=== PATIENT | female | born 1960 | race Caucasian/White ===

== ENCOUNTER → 2019-07-18 | Outpatient (CLI) | payer MEDICARE, MEDICAID, SELFPAY | PROVIDERS: Family Provider Nurse Practitioner Family; Visit Provider Internal Medicine Medical Oncology | DX: Z51.11 Encounter for antineoplastic chemotherapy (principal); C50.412 Malignant neoplasm of upper-outer quadrant of left female breast; G62.0 Drug-induced polyneuropathy; T45.1X5A Adverse effect of antineoplastic and immunosuppressive drugs, initial encounter; Z17.1 Estrogen receptor negative status [ER-]; Z79.899 Other long term (current) drug therapy; I10 Essential (primary) hypertension; E03.9 Hypothyroidism, unspecified; K21.9 Gastro-esophageal reflux disease without esophagitis; M79.7 Fibromyalgia; J44.9 Chronic obstructive pulmonary disease, unspecified; G47.33 Obstructive sleep apnea (adult) (pediatric); F41.8 Other specified anxiety disorders; M48.9 Spondylopathy, unspecified | CPT/HCPCS: 80053; 85025; 96367; 96372; 96413; 96415; 99214; J1100; J1453; J1815; J2469; J2505; J3490; J7030; J7050; J9267 ==

== ENCOUNTER 2019-07-27 10:28 | Outpatient (RCR) | payer MEDICARE, MEDICAID, SELFPAY ==
--- NOTE | 2019-08-01 10:43 | ONC FU_ITS ---
Dr. Cameron Patient Follow-Up Note Patient: Ana Chavez Unit #: [id number]: 1960 Dicatated By: Bright Cameron M.D.Date of Visit:Jul 27, 2019 Onc Med Follow-up/Prog Note Chief Complaint: Breast cancer. History of Present Illness: This is a 59 year-old woman with grade 2 invasive ductal carcinoma of the left breast, by clinical evaluation stage IIB (T2, N0, M0), ER/AK negative and HER-2/luz negative. She had presented with abnormal screening mammogram. The study from 12/09/2018 showed a new mass in the left upper outer quadrant measuring 2 x 1.5 cm. Additional evaluation was recommended. She returned for additional mammographic views and ultrasound on 03/01/2019. The mammogram showed an irregular spiculated mass in the left upper outer quadrant measuring 2.5 x 1.9 cm. It appeared to have increased on the November study. Ultrasound showed a solid hypoechoic mass measuring 2.6 x 1.8 x 2.2 cm. The findings were BI-RADS 5, highly suggestive of malignancy. Ultrasound directed biopsy of the left breast mass on 03/11/2019 showed grade 2 invasive ductal carcinoma. The best prognostic profile showed unfavorable KI 67 at 39%. The tumor was ER/AK negative, both < 1%. It was negative for overexpression of HER-2/luz, 1+ by IHC with amplification ratio by FISH of 1.0 with 1.9 HER-2 copies/cell. She was then seen at the [facility] in [place] for further management of the breast cancer. She was recommended to undergo neoadjuvant chemotherapy with dose dense Adriamycin/cyclophosphamide for 4 cycles followed by paclitaxel every 2 weeks for 4 cycles. She completed the 4th cycle of AC on 05/26/2019. She was seen here initially on 06/13/2019 because she desired to complete the remainder of her chemotherapy closer to home. Subsequent to that visit, I had arranged for placement of a PICC line, as she had very poor peripheral venous access and she did not want to have a Port-A-Cath placed. She had difficulty with the procedure, though, and she opted to stop it before it was completed. Her other medical illnesses include hypertension, GERD, COPD, obstructive sleep apnea, hypothyroidism, degenerative arthritis, fibromyalgia, and anxiety/depression. She has had only minimal tobacco or alcohol use in the past. INTERIM HISTORY: She eventually did get an IV placed into the right arm, and she began cycle 1 of paclitaxel on 06/27/2019. She tolerated it without acute toxicity, but her cycle 2 was delayed due to a respiratory infection, for which she was given antibiotic therapy. She was unable continue with cycle 2 of paclitaxel on 07/18/2019. It was administered via peripheral IV in the right arm at the full dosage. She had then presented to the emergency room at [facility] in [place] yesterday with pain and swelling in her right arm. I was told by the ER physician that her venous Doppler study showed evidence of thrombophlebitis, but there was no actual deep vein thrombosis identified. The actual report is not yet available. As a precaution, I did recommend that she start anticoagulation, and she was given a prescription to start apixaban 10 mg twice a day. She is seen for a follow-up visit. She says she was nauseated for about 6 days after her last chemotherapy treatment. Her energy is the same. She has limited activity. Appetite has not been good. She has not had fever or night sweats. She complains that her mouth sibley. Her breathing is the same. She has shortness of breath. She does not complain of cough, and she has not been having chest pain. Bowel and bladder function have been okay. She has pain in the lower back. She also has pain in both legs and she is having numbness in her fingertips and toes. It is gradually getting worse. Medications: Ativan 0.5 - 1 Tablet (of 1 mg) Oral t.i.d. PRN, Concerta 1 Tablet (of 54 mg) Tablet, controlled release Oral daily PRN, Cyclobenzaprine HCl 1 Tablet (of 10 mg) Oral t.i.d. PRN, FLUoxetine HCl 1 Tablet (of 20 mg) Oral daily, Lisinopril 1 Tablet (of 40 mg) Oral daily, Lyrica 1 Capsule (of 75 mg) Oral b.i.d., Metoprolol Succinate ER 1 Tablet (of 25 mg) Tablet SR 24 HR Oral daily, Morphine Sulfate ER 1 Tablet (of 60 mg) Tablet, controlled release Oral q 12 hours, Omeprazole 1 Capsule (of 40 mg) Capsule Delayed Release Oral b.i.d. PRN Allergies: Amoxicillin Review of Systems: Constitutional - Her energy is the same. She has fatigue, but she is able to do light housework. Her appetite is not good, but she is eating. She has not had fever. She does have some sweating at night. ECOG score is 1, ENMT - She has sinus drainage. She complains that her mouth siblye. No sore throat or difficulty swallowing, Hematologic/Lymphatic - No abnormal bruising or bleeding, Respiratory - She has some shortness of breath. Her breathing is the same. No cough. No pleuritic pain or hemoptysis, Cardiovascular - No angina pain. No palpitations, Gastrointestinal - She had some nausea on Thursday. She has a little bit of heartburn. No diarrhea or constipation. No blood in the stool or black stools, Genitourinary (F) - No dysuria or hematuria. No urinary frequency. No urgency or incontinence, Musculoskeletal - She has pain in her lower back, Neurologic - No headache or dizziness. She has numbness and tingling in her feet and fingertips. It has gotten worse gradually, Psychiatric - No anxiety or depression. No insomnia. Vital Signs: Performed on Jul 27, 2019 10:50 Height - 67.00 in Weight - 208.0 lbs (LOW) BSA - 2.06 sq.m BMI - 32.58 (HIGH) Temperature - 98.3 F (LOW) Pulse - 105 /min (HIGH) Respiration - 17 /min BP - 140/98 mm(hg) O2 Sat - 98 % Pain - 6 Physical Examination: Constitutional - She looks pretty good generally, Eyes - Sclerae nonicteric. Conjunctivae clear, ENMT - There are no lesions noted in the oral cavity, Hematologic/Lymphatic - No cervical, clavicular, or axillary adenopathy, Respiratory - Lungs are clear with good air movement bilaterally, Cardiovascular - Heart rhythm is regular. There is no murmur, gallop, or rub noted, Abdomen - Soft. Liver and spleen are not enlarged. There is no abdominal mass or ascites noted and there is no inguinal adenopathy, Extremities - No lower extremity edema. There is localized swelling and erythema involving the ventral aspect of the right forearm just below the elbow, Neurologic - No focal neurologic deficits noted. Lab/Imaging: Test performed on Jul 18, 2019 09:55 Sodium 138 mmol/L Potassium 4.3 mmol/L Chloride 100 mmol/L CO2 22 mmol/L Anion Gap 20.3 BUN 8 mg/dL Creatinine 0.6 mg/dL Cr Clearance (Est) 155.7900 mL/min eGFR 102.0 mL/min Glucose 245 mg/dl Calcium 9.9 mg/dL Protein, Total 6.4 g/dL Albumin 4.1 g/dL Globulin 2.3 gm/dL Bilirubin, Total 0.3 mg/dL ALT (SGPT) 13 U/L AST (SGOT) 18 U/L Alkaline Phosphatase 114 U/L WBC 4.5 10 3/uL RBC 3.60 10 6/uL HGB 10.6 g/dL HCT 34.3 % MCV 95.3 fl MCH 29.4 pg MCHC 30.9 g/dl RDW 16.0 % Platelet Count 163 10 3/cmm MPV 10.2 fl Neutrophils 3.9 10 3/uL Lymphocytes 0.6 10 3/uL Monocytes 0.0 10 3/uL Eosinophils 0.0 10 3/uL Basophils 0.0 10 3/uL Neutrophil % 86.3 % Lymphocyte % 12.4 % Monocyte % 0.4 % Eosinophil % 0.0 % Basophils % 0.2 % Impression: also I'll okay thanks a lot1. Patient with grade 2 invasive ductal carcinoma of the left breast, triple negative. By clinical evaluation her disease was stage IIB (T2, N0, M0). 2. She has been undergoing neoadjuvant chemotherapy with dose dense AC/T. Her other medical illnesses include: 3. Hypertension. 4. Hypothyroidism. 5. GERD. 6. Degenerative arthritis/degenerative disease of the spine. 7. Fibromyalgia. 8. COPD. 9. Obstructive sleep apnea. 10. Anxiety/depression. She began cycle 1 of Adriamycin/cyclophosphamide on 04/06/2019. She tolerated it with acceptable toxicity and she continued with cycle 2 on 04/21/2019, with cycle 3 on 05/12/2019, and with cycle 4 on 05/26/2019. Cycle 4 was complicated by mucositis, severe enough to require hospitalization. She also was anemic and required PRBC transfusion. She was seen here initially on 06/13/2019 as she desired to complete the remainder of her chemotherapy closer to home. Her first cycle of paclitaxel, though, as she required some type of venous access device, and she had difficulty with the initial attempt to place a PICC line. She eventually did complete cycle 1 of paclitaxel on 06/27/2019. She had no acute toxicity with that treatment, but she subsequently has developed fairly significant neuropathy symptoms. She required a delay with cycle 2 due to a respiratory infection, but it was able to be administered through a peripheral IV in the right arm on 07/18/2019. She then presented to the emergency room at [facility] in [place] yesterday with pain and swelling in her right arm. There is localized swelling and erythema in the ventral aspect of the right forearm just below the right elbow. Her venous Doppler study reportedly showed findings consistent with thrombophlebitis. The cause is uncertain, as it does not appear to correlate with the site of administration of her second cycle of paclitaxel, which was in the posterior aspect of the forearm. Plan: As a precaution, I will have her continue anticoagulation with apixaban. I'm also going to start empiric antibiotic coverage with Bactrim. At this point she is undecided if she wants to attempt any further chemotherapy. She would require 2 more cycles of paclitaxel to complete her treatment, but her neuropathy symptoms are worsening, and given the problems with her right arm, and I will insist that she have a central line placed for any further infusions of paclitaxel. Signed By: Bright Cameron M.D. <<Signature on File>>
== END 2019-08-19 23:59 | disposition home or self-care (01) ==
LOC: ONCMED 10:28
PROVIDERS: Family Provider Nurse Practitioner Family; PCP Nurse Practitioner Family; Visit Provider Internal Medicine Medical Oncology
DX: C50.412 Malignant neoplasm of upper-outer quadrant of left female breast (principal); Z17.1 Estrogen receptor negative status [ER-]; I10 Essential (primary) hypertension; K21.9 Gastro-esophageal reflux disease without esophagitis; J44.9 Chronic obstructive pulmonary disease, unspecified; G47.33 Obstructive sleep apnea (adult) (pediatric); E03.9 Hypothyroidism, unspecified; M19.90 Unspecified osteoarthritis, unspecified site; M79.7 Fibromyalgia; F41.8 Other specified anxiety disorders; I80.8 Phlebitis and thrombophlebitis of other sites; G62.0 Drug-induced polyneuropathy; T45.1X5A Adverse effect of antineoplastic and immunosuppressive drugs, initial encounter; Z79.899 Other long term (current) drug therapy
CPT/HCPCS: 99214

== ENCOUNTER 2019-09-05 06:00 | Outpatient (RCR) | payer MEDICARE, MEDICAID, SELFPAY ==
--- NOTE | 2019-09-05 20:35 | ONC FU_ITS ---
Dr. Cameron Patient Follow-Up Note Patient: Ana Chavez Unit #: [id number]: 1960 Dicatated By: Bright Cameron M.D.Date of Visit:Sep 05, 2019 Onc Med Follow-up/Prog Note Chief Complaint: Breast cancer. History of Present Illness: This is a 59 year-old woman with grade 2 invasive ductal carcinoma of the left breast, by clinical evaluation stage IIB (T2, N0, M0), ER/CO negative and HER-2/luz negative. She had presented with abnormal screening mammogram. The study from 12/09/2018 showed a new mass in the left upper outer quadrant measuring 2 x 1.5 cm. Additional evaluation was recommended. She returned for additional mammographic views and ultrasound on 03/01/2019. The mammogram showed an irregular spiculated mass in the left upper outer quadrant measuring 2.5 x 1.9 cm. It appeared to have increased on the November study. Ultrasound showed a solid hypoechoic mass measuring 2.6 x 1.8 x 2.2 cm. The findings were BI-RADS 5, highly suggestive of malignancy. Ultrasound directed biopsy of the left breast mass on 03/11/2019 showed grade 2 invasive ductal carcinoma. The best prognostic profile showed unfavorable KI 67 at 39%. The tumor was ER/CO negative, both < 1%. It was negative for overexpression of HER-2/luz, 1+ by IHC with amplification ratio by FISH of 1.0 with 1.9 HER-2 copies/cell. She was then seen at the [facility] in [place] for further management of the breast cancer. She was recommended to undergo neoadjuvant chemotherapy with dose dense Adriamycin/cyclophosphamide for 4 cycles followed by paclitaxel every 2 weeks for 4 cycles. She completed the 4th cycle of AC on 05/26/2019. She was seen here initially on 06/13/2019 because she desired to complete the remainder of her chemotherapy closer to home. Subsequent to that visit, I had arranged for placement of a PICC line, as she had very poor peripheral venous access and she did not want to have a Port-A-Cath placed. She had difficulty with the procedure, though, and she opted to stop it before it was completed. Her other medical illnesses include hypertension, GERD, COPD, obstructive sleep apnea, hypothyroidism, degenerative arthritis, fibromyalgia, and anxiety/depression. She has had only minimal tobacco or alcohol use in the past. INTERIM HISTORY: She eventually did get an IV placed into the right arm, and she began cycle 1 of paclitaxel on 06/27/2019. She tolerated it without acute toxicity, but her cycle 2 was delayed due to a respiratory infection, for which she was given antibiotic therapy. She was unable continue with cycle 2 of paclitaxel on 07/18/2019. It was administered via peripheral IV in the right arm at the full dosage. She had then presented to the emergency room at [facility] in [place] with pain and swelling in her right arm. Her venous Doppler study showed evidence of thrombophlebitis, but there was no actual deep vein thrombosis identified. As a precaution, I did recommend that she start anticoagulation with apixaban. I had seen her for a follow-up visit on 07/27/2019. I had recommended that she undergo placement of a venous access catheter prior to continuing her chemotherapy. She had recently returned to the [facility]. She apparently had repeat mammogram and ultrasound done at that time, though I do not have those reports available. She has decided to further treatment locally. She says her energy comes and goes. Her appetite is not good. Her weight is down a few pounds. She has not had fever or hot flashes. She has sweating with activity. She does not complain of shortness of breath, cough, or chest pain. She has constipation. Bladder function has been OK. She has pain in her left chest area and she complains that her left knee hurts. She has sharp jabbing pain in her feet and she has numbness/tingling in fingers and toes. Medications: Ativan 0.5 - 1 Tablet (of 1 mg) Oral t.i.d. PRN, Concerta 1 Tablet (of 54 mg) Tablet, controlled release Oral daily PRN, Cyclobenzaprine HCl 1 Tablet (of 10 mg) Oral t.i.d. PRN, FLUoxetine HCl 1 Tablet (of 20 mg) Oral daily, Lisinopril 1 Tablet (of 40 mg) Oral daily, Lyrica 2 Capsule (of 75 mg) Oral at bedtime, Metoprolol Succinate ER 1 Tablet (of 25 mg) Tablet SR 24 HR Oral daily, Morphine Sulfate ER 1 Tablet (of 60 mg) Tablet, controlled release Oral q 12 hours, Omeprazole 1 Capsule (of 40 mg) Capsule Delayed Release Oral b.i.d. PRN Allergies: Amoxicillin Review of Systems: Constitutional - Her energy is not very good. She does light work at home. Her appetite is not very good and her weight is down a few pounds. No fever, chills, or hot flashes. She has sweating with activity. ECOG score is 1, ENMT - No sinus congestion/drainage. No mouth sores. No sore throat or difficulty swallowing, Hematologic/Lymphatic - She bruises easily, Respiratory - No shortness of breath. No cough. No pleuritic pain or hemoptysis, Cardiovascular - No angina pain. No palpitations, Gastrointestinal - No nausea or vomiting. No heartburn or acid reflux. She stays constipated most of the time. No blood in the stool or black stools, Genitourinary (F) - No dysuria or hematuria. No urinary frequency. No urgency or incontinence, Musculoskeletal - She has pain in her left knee and in here left chest area, Integumentary - No skin complications, Neurologic - She has had some headaches. No dizziness. She has sharp, jabbing pain in her feet, and she has numbness and tingling in her fingers and toes, Psychiatric - She has anxiety and depression. No insomnia. Vital Signs: Performed on Sep 05, 2019 15:14 Height - 67.00 in Weight - 205.2 lbs (LOW) BSA - 2.04 sq.m BMI - 32.14 (HIGH) Temperature - 98.5 F Pulse - 96 /min Respiration - 16 /min BP - 131/90 mm(hg) O2 Sat - 97 % Pain - 8 Physical Examination: Constitutional - She looks pretty good generally, Eyes - Sclerae nonicteric. Conjunctivae clear, ENMT - There are no lesions noted in the oral cavity, Hematologic/Lymphatic - No cervical or clavicular adenopathy, Respiratory - Lungs are clear with good air movement bilaterally, Cardiovascular - Heart rhythm is regular. There is no murmur, gallop, or rub noted, Breasts - The left breast feels diffusely nodular. I do not feel a discrete mass. There is no axillary adenopathy noted, Abdomen - Soft. Liver and spleen are not enlarged. There is no abdominal mass or ascites noted and there is no inguinal adenopathy, Extremities - No edema, Neurologic - No focal neurologic deficits noted. Lab/Imaging: Test performed on Jul 18, 2019 09:55 Sodium 138 mmol/L Potassium 4.3 mmol/L Chloride 100 mmol/L CO2 22 mmol/L Anion Gap 20.3 BUN 8 mg/dL Creatinine 0.6 mg/dL Cr Clearance (Est) 155.7900 mL/min eGFR 102.0 mL/min Glucose 245 mg/dl Calcium 9.9 mg/dL Protein, Total 6.4 g/dL Albumin 4.1 g/dL Globulin 2.3 gm/dL Bilirubin, Total 0.3 mg/dL ALT (SGPT) 13 U/L AST (SGOT) 18 U/L Alkaline Phosphatase 114 U/L WBC 4.5 10 3/uL RBC 3.60 10 6/uL HGB 10.6 g/dL HCT 34.3 % MCV 95.3 fl MCH 29.4 pg MCHC 30.9 g/dl RDW 16.0 % Platelet Count 163 10 3/cmm MPV 10.2 fl Neutrophils 3.9 10 3/uL Lymphocytes 0.6 10 3/uL Monocytes 0.0 10 3/uL Eosinophils 0.0 10 3/uL Basophils 0.0 10 3/uL Neutrophil % 86.3 % Lymphocyte % 12.4 % Monocyte % 0.4 % Eosinophil % 0.0 % Basophils % 0.2 % Impression: 1.Patient with grade 2 invasive ductal carcinoma of the left breast, triple negative. By clinical evaluation her disease was stage IIB (T2, N0, M0). 2. She has been undergoing neoadjuvant chemotherapy with dose dense AC/T. Her other medical illnesses include: 3. Hypertension. 4. Hypothyroidism. 5. GERD. 6. Degenerative arthritis/degenerative disease of the spine. 7. Fibromyalgia. 8. COPD. 9. Obstructive sleep apnea. 10. Anxiety/depression. She began cycle 1 of Adriamycin/cyclophosphamide on 04/06/2019. She tolerated it with acceptable toxicity and she continued with cycle 2 on 04/21/2019, with cycle 3 on 05/12/2019, and with cycle 4 on 05/26/2019. Cycle 4 was complicated by mucositis, severe enough to require hospitalization. She also was anemic and required PRBC transfusion. She was seen here initially on 06/13/2019 as she desired to complete the remainder of her chemotherapy closer to home. Her first cycle of paclitaxel, though, as she required some type of venous access device, and she had difficulty with the initial attempt to place a PICC line. She eventually did complete cycle 1 of paclitaxel on 06/27/2019. She had no acute toxicity with that treatment, but she subsequently has developed fairly significant neuropathy symptoms. She required a delay with cycle 2 due to a respiratory infection, but it was able to be administered through a peripheral IV in the right arm on 07/18/2019. She then presented to the emergency room at [facility] in [place] yesterday with pain and swelling in her right arm. There is localized swelling and erythema in the ventral aspect of the right forearm just below the right elbow. Her venous Doppler study reportedly showed findings consistent with thrombophlebitis. The cause is uncertain, as it does not appear to correlate with the site of administration of her second cycle of paclitaxel, which was in the posterior aspect of the forearm. She was advised to undergo placement of a venous access device prior to receiving any further chemotherapy. Ultimately this never completed, and she received no further treatment. She has recently had a followup visit at the [facility] in [place]. Those reports are not yet available. Plan: At this internval from her treatment, I do not recommend any further neoadjuvant chemotherapy. She can now proceed with lumpectomy and axillary sentinel lymph node biopsy and radiation. She may be then be eligible for additional adjuvant chemotherapy depending on the axllary lymph node status. At this point I will arrange for surgical consultation with Dr. Berger. I will request the recent mammogram/ultrasound reports and discs. In the meantime, I will continue to provide her pain medication, but with the MSER dosage reduced to 30 mg every 12 hours. Signed By: Bright Cameron M.D. <<Signature on File>>
== END 2019-09-17 23:59 | disposition home or self-care (01) ==
LOC: ONCMED 06:00
PROVIDERS: Family Provider Nurse Practitioner Family; PCP Nurse Practitioner Family; Visit Provider Internal Medicine Medical Oncology
DX: C50.412 Malignant neoplasm of upper-outer quadrant of left female breast (principal); Z17.1 Estrogen receptor negative status [ER-]; I10 Essential (primary) hypertension; K21.9 Gastro-esophageal reflux disease without esophagitis; J44.9 Chronic obstructive pulmonary disease, unspecified; G47.33 Obstructive sleep apnea (adult) (pediatric); E03.9 Hypothyroidism, unspecified; M19.90 Unspecified osteoarthritis, unspecified site; M79.7 Fibromyalgia; F41.8 Other specified anxiety disorders; I80.9 Phlebitis and thrombophlebitis of unspecified site; Z79.899 Other long term (current) drug therapy; Z92.21 Personal history of antineoplastic chemotherapy
CPT/HCPCS: 99214

== ENCOUNTER → 2019-09-16 14:50 | Outpatient (BNVA) | payer MEDICARE, MEDICAID, SELFPAY | PROVIDERS: Family Provider Nurse Practitioner Family; PCP Nurse Practitioner Family; Visit Provider Nurse Practitioner | DX: F90.2 Attention-deficit hyperactivity disorder, combined type (principal); F41.1 Generalized anxiety disorder; F33.0 Major depressive disorder, recurrent, mild; F41.8 Other specified anxiety disorders | CPT/HCPCS: 99214 ==

== ENCOUNTER 2019-09-19 12:01 | Outpatient (RCR) | payer MEDICARE, MEDICAID, SELFPAY ==
--- NOTE | 2019-09-19 12:45 | USCV_ITS ---
Ana Chavez Age: 59 Gender: F : 1960 Exam Date: 09/19/2019 12:41 Ordering Phys: Bright Cameron MD Technologist: Mary Jay Exam Location: [facility] – [place] Indication: phlebitis HISTORY: Phlebitis RUE, history thrombus in right basilic vein. Patient has been on aspirin therapy since July PROCEDURES: The following venous structures were evaluated: internal jugular vein, subclavian vein, axillary vein, and brachial veins. In addition, the basilic vein, cephalic vein, radial vein, and ulnar vein. FINDINGS: No DVT seen in RUE. Cephalic and basilici veins appear free of thrombus. Area of concern in right lateral arm appears to be a superficial vein that does not compress. CONCLUSIONS Right cephalic and basilic veins are patent. A small superficial vein in the right forearm has small thrombus. No deep venous thrombosis is seen. Dr. Jenny Flanagan MD (Electronically Signed) Final Date: 19 September 2019 14:17 S
== END 2019-10-18 23:59 | disposition home or self-care (01) ==
LOC: RAD 12:01
PROVIDERS: Family Provider Nurse Practitioner Family; PCP Nurse Practitioner Family; Visit Provider Internal Medicine Medical Oncology
DX: I80.8 Phlebitis and thrombophlebitis of other sites (principal)
CPT/HCPCS: 93971

== ENCOUNTER 2019-10-05 07:58 | Outpatient (CLI) | payer MEDICARE, MEDICAID, SELFPAY ==
[2019-09-27 09:21] VITALS: BMI 32.7
[2019-10-05] VITALS (12 sets, daily range): BP systolic 143–177; BP diastolic 79–114; PULSE 55–78; RESP 11–20; TEMP 36.2–37.2; O2SAT 92–100
--- NOTE | 2019-10-05 | US_ITS ---
WS: [id number] ULTRASOUND-GUIDED LEFT BREAST NEEDLE LOCALIZATION CLINICAL INFORMATION: LEFT BREAST LUMPECTOMY FINDINGS: The procedure including risks, benefits, and complications were discussed with the patient who agreed to proceed. Using sterile technique patient was prepped and draped in the usual sterile fashion. Aft er 1% lidocaine utilizing real-time ultrasound guidance a 7 cm Kopan's needle was advanced through th e 3:00 left breast nodule. No immediate complications. Surgical specimen demonstrates gross total resection of the nodule with intact wire. US/[place] [id number] IMPRESSION: 1. Uncomplicated left breast nodule needle localization. 2. Surgical specimen demonstrates gross total resection of the nodule with int act wire.
--- NOTE | 2019-10-05 | NM_ITS ---
WS: [id number] SENTINEL NODE TECHNIQUE: LEFT sentinel node injection CLINICAL INFORMATION: SENTINEL NODE BX COMPARISON: Ultrasound September 02, 2019 PROCEDURE: The procedure including risks, benefits, and complications were discussed; the patient agr eed to proceed. Patient was prepped and draped in usual sterile fashion. Subsequently, 1% lidocaine p reservative-free was administered at the 12:00, 3:00, 6:00, and 9:00 o'clock positions for local anes thesia. Subsequently, 4 aliquots of filtered technetium 99m sulfur colloid was injected into the subc utaneous soft tissues. A total dose of 1.02 mCi was administered. Patient tolerated the procedure well with no immediate complications. OR/OR sentinel node inject [id number] IMPRESSION: Uncomplicated LEFT breast sentinel node injection with a total dose of 1.02 mCi .
--- NOTE | 2019-10-05 | US_ITS ---
WS: [id number] ULTRASOUND-GUIDED LEFT BREAST NEEDLE LOCALIZATION CLINICAL INFORMATION: LEFT BREAST LUMPECTOMY FINDINGS: The procedure including risks, benefits, and complications were discussed with the patient who agreed to proceed. Using sterile technique patient was prepped and draped in the usual sterile fashion. Aft er 1% lidocaine utilizing real-time ultrasound guidance a 7 cm Kopan's needle was advanced through th e 3:00 left breast nodule. No immediate complications. Surgical specimen demonstrates gross total resection of the nodule with intact wire. US/US breast surgical specimen IMPRESSION: 1. Uncomplicated left breast nodule needle localization. 2. Surgical specimen demonstrates gross total resection of the nodule with int act wire.
--- NOTE | 2019-10-05 08:25 | ANES.PREANE2 ---
Pre-Anesthetic Assessment Pre-Anesthetic Assessment: Height/Weight: Height 1.68 m Weight 94.801 kg Temp Pulse Resp BP Pulse Ox 97.1 F L 73 18 168/84 99 10/05/19 08:19 10/05/19 08:19 10/05/19 08:19 10/05/19 08:19 10/05/19 08:19 Preop Diagnosis: Left breast cancer Proposed Procedure: Operation Date: 09/28/19 10:05 Proposed Procedures p Sentinal Lymph Node Biopsy 35453 [id number] C50.912(Left) - Nathan Berger MD s Breast Biopsy Needle Localization(Left) - Nathan Berger MD s Left Breast Lumpectomy(Left) - Nathan Berger MD Operation Date: 10/05/19 11:00 Proposed Procedures p Sentinal Lymph Node Biopsy 23994 [id number] 24345 C50.912(Left) - Nathan Berger MD s Breast Biopsy Needle Localization(Left) - Nathan Berger MD s Left Breast Lumpectomy(Left) - Nathan Berger MD Last Intake: 20:30 Exam: Pre-Anes Outpt Exam: alert, oriented x 3, clear to auscultation bilaterally and regular rate & rhythm Airway: Submandibular: WNL Cervical ROM: WNL MP: 1 Dentition: False Pulmonary: Pulmonary: COPD CV/HEM: CV/HEM: HTN Comments: rx'd x 10y GI: GI: GERD and Hiatus hernia Comments: well controlled Musc/skel: Musc/skel: Lower Back Pain Comments: bilateral radiculopathy Neuropsych: Neuropsych: Depression and FRANCIS Anesthetic Plan: ASA status: 3 PFSH Anesthesia PFSH: Social History Smoking and tobacco status: never smoked Alcohol intake: never History of recent travel: No Data Anesthesia Cardiac Studies: No Data to Display
[2019-10-05] MEDS: sodium chloride 0.9% 1,000 ML 30 ML IV (10:15)
--- NOTE | 2019-10-05 10:48 | W.PM.OPSUD ---
Surgery/Procedure H&P Update DATE OF PROCEDURE: October 05, 2019 DATE H&P PERFORMED: 09/19/19 H&P UPDATE INFORMATION: I have reviewed H&P completed within last 30 days, I have examined patient prior to procedure and No changes to prior documentation PREOP DIAGNOSIS: Left breast cancer PLANNED PROCEDURE: Operation Date: 09/28/19 10:05 Proposed Procedures p Sentinal Lymph Node Biopsy 04006 [id number] C50.912(Left) - Nathan Berger MD s Breast Biopsy Needle Localization(Left) - Nathan Berger MD s Left Breast Lumpectomy(Left) - Nathan Begrer MD Operation Date: 10/05/19 11:00 Proposed Procedures p Sentinal Lymph Node Biopsy 45502 [id number] 42385 C50.912(Left) - Nathan Berger MD s Breast Biopsy Needle Localization(Left) - Nathan Berger MD s Left Breast Lumpectomy(Left) - Nathan Berger MD
[2019-10-05] MEDS: vancomycin 1,000 MG in sodium chloride 0.9% 250 ML 250 MG IV (13:50)
[2019-10-05] MEDS: lidocaine 1% INJ 20 mL XX (15:12)
--- NOTE | 2019-10-05 15:16 | PM.OP ---
Operative Report Date of procedure: October 05, 2019 Pre-op Diagnosis: Left breast cancer Post-op diagnosis: same Procedure Done: Needle localization lumpectomy left breast with shave margins Left axillary sentinel lymph node biopsy Pathology: Left breast mass, short stitch superior, long stitch lateral Superior, inferior, medial, lateral, anterior, posterior shave margins with outer edge inked Left axilla lymph node biopsy Surgeon: Nathan Berger Anesthesia: MAC Condition: stable Disposition: PACU Procedure: The wire localization of the mammographic abnormality was performed by the radiologist under ultrasound guidance and the patient was transferred to operating room and placed under MAC after IV antibiotic had been administered. The left breast was prepped and draped in a manner . A curvilinear incision was made over the areolar margin at 3'o clock inferior to the marking over the mammographic abnormality, subcutaneous tissue was divided and skin flaps were raised medially and laterally. The localization wire was grasped through the incision and using electrocautery the wire along with the breast tissue containing mammographic abnormality was dissected free from the surrounding tissue. Using 2-0 silk suture, short stitch was placed superiorly and a long stitch was placed laterally.1 cm shave margins were then obtained from the superior, inferior, medial, lateral, anterior, posterior edge of the lumpectomy cavity and the outer edge was inked. The wound was irrigated with saline, hemostasis ensured with electrocautery and subcutaneous tissues approximated using 3-0 running Vicryl suture and skin was closed using running subcuticular 4-0 Monocryl sutures and Dermabond. The patient had previously had technetium 99 injected by the radiologist for sentinel lymph node biopsy. Through the existing scar the clavipectoral fascia was opened and there was limited radioactivity noted with the gamma probe in the left axilla. 3 palpable lymph nodes were dissected free from the surrounding subcutaneous tissue using electrocautery. After the lymph nodes have been excised, there is no significant radioactivity noted in the axilla. Wound was irrigated with saline, subcutaneous is approximated using interrupted 3-0 Vicryl suture and skin was closed using running subcuticular 4-0 Monocryl suture and Dermabond. 20 0.5% Marcaine was infiltrated into the lumpectomy cavity. Fluffs were used for pressure dressing. Patient was transferred to recovery room and stable condition The lumpectomy specimens were sent to mammography to obtain radiological confirmation of complete excision of the mammographic abnormality.
--- NOTE | 2019-10-05 15:38 | SUR.PHASEI ---
1537 PATIENT TO PACU AT THIS TIME. ORAL AIRWAY IN PLACE, PATIENT PLACED ON SIMPLE MASK AT 12L, SPO2 93%. PATIENT DROWSY, OPENS EYES TO VERBAL STIMULI. DRESSING INTACT TO LEFT BREAST, WITH SURGICAL BRA IN PLACE.
--- NOTE | 2019-10-05 15:40 | SUR.PHASEI ---
1538 ORAL AIRWAY REMOVED. SPO2 94%, ON SIMPLE MASK AT 12L.
--- NOTE | 2019-10-05 15:50 | SUR.PHASEI ---
1550 ORAL AIRWAY REMOVED. SPO2 99% ON SIMPLE MASK AT 8L.
--- NOTE | 2019-10-05 16:23 | SUR.PHASEI ---
1619 PATIENT TO OPS. RR EVEN AND UNLABORED. PWD. PATIENT REMAINS DROWSY, OPENS EYES TO VERBAL STIMULI. DENIES PAIN. DRESSING INTACT TO LEFT BREAST WITH SURGICAL BRA.
== END 2019-10-05 17:20 | disposition home or self-care (01) ==
PROVIDERS: Family Provider Nurse Practitioner Family; PCP Nurse Practitioner Family; Visit Provider Surgery
PROC: (CPT 19301; principal; 2019-10-05 11:00)
PROC: (CPT 19301; 2019-10-05 11:00)
DX: C50.912 Malignant neoplasm of unspecified site of left female breast (principal); Z79.82 Long term (current) use of aspirin; J44.9 Chronic obstructive pulmonary disease, unspecified; I10 Essential (primary) hypertension; K21.9 Gastro-esophageal reflux disease without esophagitis
CPT/HCPCS: 19301; 38500; 12345; 19285; 38792; 88305; A9541; J0330; J2001; J2405; J2704; J3010; J3370; J3490; J7030; J7050

== ENCOUNTER 2019-11-14 06:52 | Outpatient (RCR) | payer MEDICARE, MEDICAID, SELFPAY ==
--- NOTE | 2019-11-14 | CT_ITS ---
Radiation Therapy Planning CT images; total exam DLP: 835.42 mGy-cm MTDD
--- NOTE | 2019-11-14 08:24 | N.ONRAD NP_ITS ---
Radiation Oncology New Patient Visit Patient: Ana Chavez MR#: [id number] : 1960> Age: 59> Sex: Female> Dictated by: Dr. Brennon Sánchez Date of Service: 11/10/2019 Referring Physician(s) : Referred Self Diagnosis: C50.412 - malignant neoplasm of upper-outer quadrant of left female breast, Diagnosed 06/13/2019 (active), stage iib, t2, n0, m0, g2, her2 neg, er neg, pr neg. Radiotherapy to date: Summary > No prior radiation therapy. 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 Diagnosis was made by ultrasound biopsy on March 11, 2019. She then received neoadjuvant chemotherapy initially at the cancer treatment centers of [facility] in [facility] and then completion of chemotherapy here. Following that she underwent lumpectomy and lymph node sampling here on September 25, 20172019 at which time she was found to have pathologic stage I (T1 N0 M0) adenocarcinoma> She had a 1.2cm primary lesion resected with clear margins and sampled lymph nodes were clear. She is now here to address adjuvant breast radiation treatment Since surgery she has had some tightness and soreness in her breast. Her weight has not gone up 13 pounds she has good appetite she has chronic fibromyalgia treated with morphine and continues to use his narcotic for her breast pain as well. She also notes a recent onset of bilateral lower extremity edema and faint rash over the distal calves of uncertain significance. She will see her primary doctor Dr. Martin to address this. Current Medications: Aloxi, ativan, azithromycin, benadryl, concerta, dexamethasone, dexamethasone Sodium Phosphate, emend, famotidine, fLUoxetine HCl, lactulose, lisinopril, lORazepam, lyrica, metoprolol Succinate ER, morphine Sulfate ER, morphine Sulfate ER, neulasta, omeprazole, oxyCODONE HCl, pACLitaxel, prochlorperazine Maleate. Allergies: Amoxicillin. Medical History: - Anxiety/depression, - chronic obstructive pulmonary disease, - degenerative arthritis, - degenerative disease of the spine, - fibromyalgia, - gastroesophageal reflux disease, - hypertension, - hypothyroidism, - obstructive sleep apnea. No history of collagen vascular disease. No previous radiation therapy. Surgical History: section x 2, right carpal tunnel release and ultrasound-guided biopsy of the left breast on 03/11/2019. Family History: Father is at age 37 having experienced motor vehicle accident. Mother is at age 85 having experienced renal failure. Paternal Uncle is having experienced lung cancer. Paternal Uncle is having experienced lung cancer. Father in a motor vehicle accident age 37. Mother with kidney failure at age 85. One brother is in good health. Two paternal uncles had lung cancer. Social History: Last screened on 09/05/2019 - Yes - but has quit. Last screened on 09/05/2019 - Past drinker. Patient indicated access to the following support systems: lives with spouse, significant other, family, or friends, supportive family/friends willing to assist with needs, and transportation problems exist and will require assistance. Patient indicated the following nutritional habits: regular meals. Patient indicated participation in the following forms of activity: occasional exercise. Current Complaints / Review of Systems: Constitutional - Complains of moderate fatigue. Complains of change in weight in which she has gained 13.2 lbs. since 2019. Denies lack of appetite, fever and night sweats. Eyes - Denies blurred vision. ENMT - Complains of ear pain on the right side due to ear wax. Complains of mouth dryness. Complains of altered taste. Denies dysphagia, stomatitis and tinnitus. Neck - Denies neck pain. Integumentary - Complains of rash on the legs. Cardiovascular - Complains of edema in both ankles. Denies arrhythmias and chest pain. Respiratory - Complains of cough in which she states is related to sinus drainage. Complains of mild dyspnea associated with normal activity. Complains of wheezing. Gastrointestinal - Complains of intermittent constipation. Denies abdominal pain, diarrhea, heartburn / dyspepsia, hemorrhoids, melena / GI bleeding, nausea and vomiting. Genitourinary (F) - Complains of urgency. Denies dysuria, frequency, nocturia, vaginal discharge / bleeding and vaginal spotting. Musculoskeletal - Complains of joint pain associated with joint swelling in the fingers, lower back, and both hips. Complains of localized muscle weakness in both legs. Denies bone pain. Neurologic - Complains of headaches in which she says she has one almost everyday. Denies dizziness. Endocrine - Complains of thyroid disease. Denies diabetes. Hematologic/Lymphatic - Complains of tender or enlarged lymph nodes in the left axilla.. Vital Signs: Performed on 11/10/2019 9:15 AM BMI - 34.207 kg/m2 (high), Height - 67.00 in, Weight - 218.4 lbs, Temperature - 98.2 f, Pulse - 82, Respiration - 20, O2 Sat - 99 %, Pain - 8 and BP - 130/ 64 mm(hg)(/low). Physical Exam: Pleasant woman in no acute distress. Alopecia has been resolving. Oral cavity revealed dentures in the maxilla poor dentition in the mandible. Lymph nodes she had no palpable cervical or supraclavicular adenopathy or axillary adenopathy. Breast examination revealed a healed incision in the left upper outer quadrant of the left breast there was a 5 x 6 cm poorly defined tender fullness in the left breast reflecting a postsurgical seroma. Arms had full range of motion no arm edema. Lower extremities revealed 1+ edema to the midcalf with faint erythematous rash to the mid calf. Performance Status: Pathology: Primary, c50.412 - malignant neoplasm of upper-outer quadrant of left female breast, Diagnosed 06/13/2019 (active) stage iib, t2, n0, m0, g2, her2 neg, er neg, pr neg. Pathology from October 05, 2019 revealed residual invasive ductal carcinoma the breast measuring 1.2 cm in greatest dimension with no extension to the inked margin additional margins were all clear 4 lymph nodes were sampled none of which had disease involvement Lab: Test performed on 07/18/2019 9:55 AM RBC - 3.60 10 6/ul (low), HGB - 10.6 g/dl (low), HCT - 34.3 % (low), RDW - 16.0 % (high), Lymphocytes - 0.6 10 3/ul (low), Monocytes - 0.0 10 3/ul (low), Anion Gap - 20.3 (high), Cr Clearance (Est) - 155.7900 ml/min (high), Glucose - 245 mg/dl (high), Protein, Total - 6.4 g/dl (low) and Alkaline Phosphatase - 114 u/l (high). Imaging: See HPI Impression: In summary my impression is that of clinical stage II pathologic stage I adenocarcinoma the left breast she has done well with neoadjuvant chemotherapy she has had resection of her primary lesion with clear margin she is now a satisfactory candidate to pursue adjuvant breast radiation treatment over 4-week period of time. She will also return to her primary physician to assess her lower extremity edema and mild rash which did not have the symptoms or appearance of cellulitis. Plan: She will now return here for simulation followed by treatment planning and when then will begin her adjuvant treatment Signed by: 11/14/2019 8:23:07 AM <<Signature on File>> Time spent with patient: 60 minutes CPT Code: CPT Code:
== END 2019-11-17 23:59 | disposition home or self-care (01) ==
LOC: ONCMED 06:52
PROVIDERS: Family Provider Nurse Practitioner Family; PCP Nurse Practitioner Family; Visit Provider Radiology Radiation Oncology
DX: C50.412 Malignant neoplasm of upper-outer quadrant of left female breast (principal); Z17.1 Estrogen receptor negative status [ER-]; R60.0 Localized edema; R21 Rash and other nonspecific skin eruption; Z79.891 Long term (current) use of opiate analgesic; Z87.891 Personal history of nicotine dependence; Z79.899 Other long term (current) drug therapy
CPT/HCPCS: 77280; 77295; 77300; 77334; 99204

== ENCOUNTER 2019-12-16 06:49 | Outpatient (RCR) | payer MEDICARE, MEDICAID, SELFPAY ==
--- NOTE | 2019-11-29 14:23 | ONCRAD TMN_ITS ---
Radiation Oncology Weekly Treatment Management Patient: Ana Chavez MR#: [id number] : 1960> Age: 59> Sex: Female Dictated by: Dr. Brennon Sánchez Date of Service: 11/29/2019 Referring Physician(s) : Bright Cameron M.D. Primary Diagnosis: C50.412 - Malignant neoplasm of upper-outer quadrant of left female breast, Diagnosed 06/13/2019 (Active) Stage IIB, T2, N0, M0, G2, HER2 Neg, ER Neg, GA Neg Radiotherapy to date: Course: LT Breast, Treatment Site: L [id number], Ref. ID: LT [id number], Energy: 15X/6X, Dose/Fx (cGy): 266, #Fx: , Dose Correction (cGy): 0, Total Dose (cGy): 532, Start Date: 11/28/2019, Elapsed Days: 1 Current Complaints/Interval History: She has just begun breast treatment she notes some pulling in her axilla when elevating her left arm. She notes stable bilateral finger numbness. She is still distraught after her her brother in a motor vehicle accident on November 16 and she also recently lost a great grandchild in childbirth at that time due to umbilical cord strangulation. As a result of her situational depression she has been put on olanzapine. She had already been on Prozac. After olanzapine was started she had some off balance. She has stopped this medication and will review it with her primary physician Constitutional Complains of mild fatigue. Denies lack of appetite, fever, night sweats and change in weight. ENMT Denies dysphagia. Integumentary Has no redness to the left chest. Breasts Complains of pain in the left breast occasionally with certain activity. Cardiovascular Denies chest pain. Respiratory Complains of wheezing occasionally. Denies cough and dyspnea. Current Medications: Aloxi, ativan, azithromycin, benadryl, concerta, dexamethasone, dexamethasone Sodium Phosphate, emend, famotidine, fLUoxetine HCl, lactulose, lisinopril, lORazepam, lyrica, metoprolol Succinate ER, morphine Sulfate ER, morphine Sulfate ER, neulasta, omeprazole, oxyCODONE HCl, pACLitaxel, prochlorperazine Maleate. Allergies: Amoxicillin. Vital Signs: Performed on 11/29/2019 1:37 PM BMI - 33.674 kg/m2 (high), Height - 67.00 in, Weight - 215.0 lbs, Temperature - 98.6 f, Pulse - 68, Respiration - 20, O2 Sat - 98 %, Pain - 6 and BP - 135/ 77 mm(hg). Physical Exam: Appears stable, no skin erythema or desquamation. Performance Status: 1 - No physically strenuous activity, but ambulatory and able to carry out light or sedentary work (e.g. office work, light house work). (ECOG) Lab: None pending in Radiation Oncology. Test performed on 07/18/2019 9:55 AM RBC - 3.60 10 6/ul (low), HGB - 10.6 g/dl (low), HCT - 34.3 % (low), RDW - 16.0 % (high), Lymphocytes - 0.6 10 3/ul (low), Monocytes - 0.0 10 3/ul (low), Anion Gap - 20.3 (high), Cr Clearance (Est) - 155.7900 ml/min (high), Glucose - 245 mg/dl (high), Protein, Total - 6.4 g/dl (low) and Alkaline Phosphatase - 114 u/l (high). Imaging: No new diagnostic imaging was performed since the last weekly treatment visit. All radiation therapy related imaging (including but not limited to kV, MV, and CBCT generated images) was reviewed. Appropriate changes, if any, were made to assure accurate target localization. Impression/Plan: Tolerating treatment well with expected side effects. Continue treatment as planned. CPT: 31003 Signed by: Dr. Brennon Sánchez>11/29/2019 2:21:02 PM <<Signature on File>>
--- NOTE | 2019-12-07 14:28 | ONCRAD TMN_ITS ---
Radiation Oncology Weekly Treatment Management Patient: Ana Chavez MR#: [id number] : 1960> Age: 59> Sex: Female Dictated by: Dr. Brennon Sánchez Date of Service: 12/07/2019 Referring Physician(s) : Bright Cameron M.D. Primary Diagnosis: C50.412 - Malignant neoplasm of upper-outer quadrant of left female breast, Diagnosed 06/13/2019 (Active) Stage IIB, T2, N0, M0, G2, HER2 Neg, ER Neg, NV Neg Radiotherapy to date: Course: LT Breast, Treatment Site: L [id number], Ref. ID: LT [id number], Energy: 15X/6X, Dose/Fx (cGy): 266, #Fx: , Dose Correction (cGy): 0, Total Dose (cGy): 2,128, Start Date: 11/28/2019, Elapsed Days: 9 Current Complaints/Interval History: She notes some increasing fatigue and some centralized burning breast pain. She has not yet begun Aquaphor for topical treatment as yet. She uses ibuprofen with good pain relief. Constitutional Complains of moderate fatigue. Denies lack of appetite, fever, night sweats and change in weight. ENMT Denies dysphagia. Integumentary Has slight redness to the left breast Breasts Complains of pain in the left breast that she describes as a burning pain. Also has right sided breast pain that is a sharp shooting pain occasionally. Cardiovascular Complains of edema left lower leg. Denies chest pain. Respiratory Complains of dyspnea associated with normal activity. Complains of wheezing occasionally. Denies cough. Current Medications: Aloxi, ativan, azithromycin, benadryl, concerta, dexamethasone, dexamethasone Sodium Phosphate, emend, famotidine, fLUoxetine HCl, lactulose, lisinopril, lORazepam, lyrica, metoprolol Succinate ER, morphine Sulfate ER, morphine Sulfate ER, neulasta, omeprazole, oxyCODONE HCl, pACLitaxel, prochlorperazine Maleate. Allergies: Amoxicillin. Vital Signs: Performed on 12/07/2019 1:37 PM BMI - 33.737 kg/m2 (high), Height - 67.00 in, Weight - 215.4 lbs, Temperature - 97.6 f, Pulse - 74, Respiration - 18, O2 Sat - 100 %, Pain - 0 and BP - 161/ 89 mm(hg)(high/). Physical Exam: No breast erythema was seen. She had a seromatous mass below the left upper outer quadrant incision nontender to palpation overall exam of the left breast was nontender as well. Performance Status: 1 - No physically strenuous activity, but ambulatory and able to carry out light or sedentary work (e.g. office work, light house work). (ECOG) Lab: None pending in Radiation Oncology. Test performed on 07/18/2019 9:55 AM RBC - 3.60 10 6/ul (low), HGB - 10.6 g/dl (low), HCT - 34.3 % (low), RDW - 16.0 % (high), Lymphocytes - 0.6 10 3/ul (low), Monocytes - 0.0 10 3/ul (low), Anion Gap - 20.3 (high), Cr Clearance (Est) - 155.7900 ml/min (high), Glucose - 245 mg/dl (high), Protein, Total - 6.4 g/dl (low) and Alkaline Phosphatase - 114 u/l (high). Imaging: No new diagnostic imaging was performed since the last weekly treatment visit. All radiation therapy related imaging (including but not limited to kV, MV, and CBCT generated images) was reviewed. Appropriate changes, if any, were made to assure accurate target localization. Impression/Plan: Tolerating treatment well with expected side effects. Continue treatment as planned. Begin Aquaphor for topical therapy. CPT: 78600 Signed by: Dr. Brennon Sánchez>12/07/2019 2:27:35 PM <<Signature on File>>
--- NOTE | 2019-12-13 15:17 | ONCRAD TMN_ITS ---
Radiation Oncology Weekly Treatment Management Patient: Ana Chavez MR#: [id number] : 1960> Age: 59> Sex: Female Dictated by: Dr. Brennon Sánchez Date of Service: 12/13/2019 Referring Physician(s) : Bright Cameron M.D. Primary Diagnosis: C50.412 - Malignant neoplasm of upper-outer quadrant of left female breast, Diagnosed 06/13/2019 (Active) Stage IIB, T2, N0, M0, G2, HER2 Neg, ER Neg, TX Neg Radiotherapy to date: Course: LT Breast, Treatment Site: L [id number], Ref. ID: LT [id number], Energy: 15X/6X, Dose/Fx (cGy): 266, #Fx: , Dose Correction (cGy): 0, Total Dose (cGy): 2,926, Start Date: 11/28/2019, Elapsed Days: 15 Current Complaints/Interval History: She continues to have some shooting pain in her left breast. She notes minimal redness over her left breast. Constitutional Complains of moderate fatigue. Denies lack of appetite, fever and night sweats. ENMT Denies dysphagia. Integumentary Has slight redness to the left breast Breasts Complains of pain in the left breast that is a sharp shooting pain that comes and goes. Cardiovascular Denies chest pain. Respiratory Denies cough, dyspnea and wheezing. Current Medications: Aloxi, ativan, azithromycin, benadryl, clonazePAM, concerta, dexamethasone, dexamethasone Sodium Phosphate, emend, famotidine, fLUoxetine HCl, lactulose, lisinopril, lORazepam, lyrica, metoprolol Succinate ER, morphine Sulfate ER, morphine Sulfate ER, neulasta, omeprazole, oxyCODONE HCl, pACLitaxel, prochlorperazine Maleate. Allergies: Amoxicillin. Vital Signs: Performed on 12/13/2019 1:32 PM BMI - 33.643 kg/m2 (high), Height - 67.00 in, Weight - 214.8 lbs, Temperature - 97.1 f, Pulse - 70, Respiration - 18, O2 Sat - 98 %, Pain - 5 and BP - 116/ 73 mm(hg). Physical Exam: Appears stable, no skin erythema or desquamation. Performance Status: 1 - No physically strenuous activity, but ambulatory and able to carry out light or sedentary work (e.g. office work, light house work). (ECOG) Lab: None pending in Radiation Oncology. Test performed on 07/18/2019 9:55 AM RBC - 3.60 10 6/ul (low), HGB - 10.6 g/dl (low), HCT - 34.3 % (low), RDW - 16.0 % (high), Lymphocytes - 0.6 10 3/ul (low), Monocytes - 0.0 10 3/ul (low), Anion Gap - 20.3 (high), Cr Clearance (Est) - 155.7900 ml/min (high), Glucose - 245 mg/dl (high), Protein, Total - 6.4 g/dl (low) and Alkaline Phosphatase - 114 u/l (high). Imaging: No new diagnostic imaging was performed since the last weekly treatment visit. All radiation therapy related imaging (including but not limited to kV, MV, and CBCT generated images) was reviewed. Appropriate changes, if any, were made to assure accurate target localization. Impression/Plan: Tolerating treatment well with expected side effects. Continue treatment as planned. Will add Aquaphor for skin care CPT: 53417 Signed by: Dr. Brennon Sánchez>12/13/2019 3:16:17 PM <<Signature on File>>
== END 2019-12-18 23:59 | disposition home or self-care (01) ==
LOC: ONCMED 06:49
PROVIDERS: PCP Nurse Practitioner Family; Visit Provider Radiology Radiation Oncology
DX: Z51.0 Encounter for antineoplastic radiation therapy (principal); C50.412 Malignant neoplasm of upper-outer quadrant of left female breast; Z17.1 Estrogen receptor negative status [ER-]; F41.9 Anxiety disorder, unspecified; F32.9 Major depressive disorder, single episode, unspecified; J44.9 Chronic obstructive pulmonary disease, unspecified; M47.9 Spondylosis, unspecified; M79.7 Fibromyalgia; K21.9 Gastro-esophageal reflux disease without esophagitis; I10 Essential (primary) hypertension; E03.9 Hypothyroidism, unspecified; G47.33 Obstructive sleep apnea (adult) (pediatric)
CPT/HCPCS: 77307; 77334; 77336; 77412; 77417; 81001; 99213

== ENCOUNTER 2019-12-26 05:48 | Outpatient (RCR) | payer MEDICARE, MEDICAID, SELFPAY ==
--- NOTE | 2019-12-20 14:20 | ONCRAD TMN_ITS ---
Radiation Oncology Weekly Treatment Management Patient: Ana Chavez MR#: [id number] : 1960 Age: 59 Sex: Female Dictated by: Dr. Brennon Sánchez Date of Service: 12/20/2019 Referring Physician(s) : Bright Cameron M.D. Primary Diagnosis: C50.412 - Malignant neoplasm of upper-outer quadrant of left female breast, Diagnosed 06/13/2019 (Active) Stage IIB, T2, N0, M0, G2, HER2 Neg, ER Neg, AR Neg Radiotherapy to date: Course: LT Breast, Treatment Site: L [id number], Ref. ID: [id number], Energy: 15X/6X, Dose/Fx (cGy): 266, #Fx: , Dose Correction (cGy): 0, Total Dose (cGy): 4,256, Start Date: 11/28/2019, End Date: 12/20/2019 with 4fx boost to follow, Elapsed Days: 22 Current Complaints/Interval History: She is doing generally better with some improvement in her energy level. She is getting outdoors and walking her dog. She is coping with her depression and recent loss of her brother. She has no significant breast symptoms. Constitutional Complains of lack of appetite off and on. Complains of moderate fatigue. Denies fever and night sweats. ENMT Denies dysphagia. Integumentary Has no redness to the left breast Breasts Complains of pain in the left breast that is a sharp shooting pain that comes and goes. Cardiovascular Denies chest pain. Respiratory Complains of a mild cough occasionally. Denies dyspnea and wheezing. Current Medications: Aloxi, ativan, azithromycin, benadryl, clonazePAM, concerta, dexamethasone, dexamethasone Sodium Phosphate, emend, famotidine, fLUoxetine HCl, lactulose, lisinopril, lORazepam, lyrica, metoprolol Succinate ER, morphine Sulfate ER, morphine Sulfate ER, neulasta, omeprazole, oxyCODONE HCl, pACLitaxel, prochlorperazine Maleate. Allergies: Amoxicillin. Vital Signs: Performed on 12/20/2019 1:30 PM BMI - 33.298 kg/m2 (high), Height - 67.00 in, Weight - 212.6 lbs, Temperature - 98.9 f, Pulse - 72, Respiration - 18, O2 Sat - 97 %, Pain - 0 and BP - 147/ 86 mm(hg)(high/). Physical Exam: Breast revealed mild erythema laterally going into the axilla and inferiorly along the inferior mammary fold with no desquamation. Performance Status: 1 - No physically strenuous activity, but ambulatory and able to carry out light or sedentary work (e.g. office work, light house work). (ECOG) Lab: None pending in Radiation Oncology. Imaging: No new diagnostic imaging was performed since the last weekly treatment visit. All radiation therapy related imaging (including but not limited to kV, MV, and CBCT generated images) was reviewed. Appropriate changes, if any, were made to assure accurate target localization. Impression/Plan: Tolerating treatment well with expected side effects. Continue treatment as planned. CPT: 77618 Signed by: Dr. Brennon Sánchez>12/20/2019 2:19:21 PM <<Signature on File>>
== END 2020-01-17 23:59 | disposition home or self-care (01) ==
LOC: ONCMED 05:48
PROVIDERS: PCP Nurse Practitioner Family; Visit Provider Radiology Radiation Oncology
DX: Z51.0 Encounter for antineoplastic radiation therapy (principal); C50.412 Malignant neoplasm of upper-outer quadrant of left female breast; Z17.1 Estrogen receptor negative status [ER-]; I10 Essential (primary) hypertension; E03.9 Hypothyroidism, unspecified; K21.9 Gastro-esophageal reflux disease without esophagitis; M47.9 Spondylosis, unspecified; M79.7 Fibromyalgia; J44.9 Chronic obstructive pulmonary disease, unspecified; G47.33 Obstructive sleep apnea (adult) (pediatric); F41.9 Anxiety disorder, unspecified; F32.9 Major depressive disorder, single episode, unspecified
CPT/HCPCS: 77336; 77412; 77417

== ENCOUNTER → 2020-01-24 07:38 | Outpatient (BNVA) | payer MEDICARE, MEDICAID, SELFPAY | PROVIDERS: PCP Nurse Practitioner Family; Visit Provider Nurse Practitioner | DX: F33.0 Major depressive disorder, recurrent, mild (principal); F41.1 Generalized anxiety disorder; F90.2 Attention-deficit hyperactivity disorder, combined type | CPT/HCPCS: 87635; 99213 ==

== ENCOUNTER 2020-03-09 07:46 | Outpatient (CLI) | payer MEDICARE, MEDICAID, SELFPAY ==
--- NOTE | 2020-03-09 08:00 | US_ITS ---
WS: [id number] THYROID ULTRASOUND HISTORY: swelling in throat area COMPARISON: None available. Right lobe: 4.8 cm x 1.6 cm x 2.0 cm. Volume: 8.1 cm3. Slightly enlarged thyroid. Heterogeneous appearance of the entire gland. There is a spongiform nodule in the mid gland measuring 10 x 6 x 7 mm. Smaller hypoechoic nodule in the mid gland measuring 7 x 5 x 5 mm without increased vascularity. Left lobe: 5.0 cm x 2.6 cm x 2.9 cm. Volume: 19.3 cm3. Moderately enlarged RIGHT. Enlargement is predominantly due to cystic mass with septation in the mid to lower gland measuring 2.5 x 2.3 x 2.1 cm. Isthmus: 0.3 cm. US/US thyroid [id number] IMPRESSION: 1. Solid hypoechoic nodule mid RIGHT gland, TI-RADS 4. Follow-up ultrasound re commended in one year. 2. Benign RIGHT spongiform and LEFT nearly completely cystic nodules as descri bed above.
== END 2020-03-09 07:47 | disposition home or self-care (01) ==
LOC: RAD 07:49
PROVIDERS: PCP Nurse Practitioner Family; Visit Provider Surgery
DX: R22.9 Localized swelling, mass and lump, unspecified (principal); E04.1 Nontoxic single thyroid nodule
CPT/HCPCS: 76536

== ENCOUNTER → 2020-03-22 16:23 | Outpatient (BNVA) | payer MEDICARE, MEDICAID, SELFPAY | PROVIDERS: PCP Nurse Practitioner Family; Visit Provider Nurse Practitioner Family | DX: R10.9 Unspecified abdominal pain (principal) | CPT/HCPCS: 74018 ==

== ENCOUNTER → 2020-04-26 08:40 | Outpatient (BNVA) | payer MEDICARE, MEDICAID, SELFPAY | PROVIDERS: PCP Nurse Practitioner Family; Visit Provider Nurse Practitioner | DX: F33.0 Major depressive disorder, recurrent, mild (principal); F41.1 Generalized anxiety disorder; F90.2 Attention-deficit hyperactivity disorder, combined type | CPT/HCPCS: 99213 ==

== ENCOUNTER 2020-07-03 13:29 | Outpatient (CLI) | payer MEDICARE, MEDICAID, SELFPAY ==
--- NOTE | 2020-07-06 16:22 | ONC FU_ITS ---
Dr. Cameron Patient Follow-Up Note Patient: Ana Chavez Unit #: [id number]: 1960 Dicatated By: Bright Cameron M.D.Date of Visit:Jul 03, 2020 Onc Med Follow-up/Prog Note Chief Complaint: Breast cancer. History of Present Illness: This is a 60 year-old woman with grade 2 invasive ductal carcinoma of the left breast, by clinical evaluation stage IIB (T2, N0, M0), ER/HI negative and HER-2/luz negative. She had presented with abnormal screening mammogram. The study from 12/09/2018 showed a new mass in the left upper outer quadrant measuring 2 x 1.5 cm. Additional evaluation was recommended. She returned for additional mammographic views and ultrasound on 03/01/2019. The mammogram showed an irregular spiculated mass in the left upper outer quadrant measuring 2.5 x 1.9 cm. It appeared to have increased on the November study. Ultrasound showed a solid hypoechoic mass measuring 2.6 x 1.8 x 2.2 cm. The findings were BI-RADS 5, highly suggestive of malignancy. Ultrasound directed biopsy of the left breast mass on 03/11/2019 showed grade 2 invasive ductal carcinoma. The best prognostic profile showed unfavorable KI 67 at 39%. The tumor was ER/HI negative, both < 1%. It was negative for overexpression of HER-2/luz, 1+ by IHC with amplification ratio by FISH of 1.0 with 1.9 HER-2 copies/cell. She was then seen at the [facility] in [place] for further management of the breast cancer. She was recommended to undergo neoadjuvant chemotherapy with dose dense Adriamycin/cyclophosphamide for 4 cycles followed by paclitaxel every 2 weeks for 4 cycles. She completed the 4th cycle of AC on 05/26/2019. She was seen here initially on 06/13/2019 because she desired to complete the remainder of her chemotherapy closer to home. Subsequent to that visit, I had arranged for placement of a PICC line, as she had very poor peripheral venous access and she did not want to have a Port-A-Cath placed. She had difficulty with the procedure, though, and she opted to stop it before it was completed. She eventually did get an IV placed into the right arm, and she began cycle 1 of paclitaxel on 06/27/2019. She tolerated it without acute toxicity, but her cycle 2 was delayed due to a respiratory infection, for which she was given antibiotic therapy. She was unable continue with cycle 2 of paclitaxel on 07/18/2019. It was administered via peripheral IV in the right arm at the full dosage. She had then presented to the emergency room at [facility] in [place] with pain and swelling in her right arm. Her venous Doppler study showed evidence of thrombophlebitis, but there was no actual deep vein thrombosis identified. As a precaution, I did recommend that she start anticoagulation with apixaban. I had seen her for a follow-up visit on 07/27/2019. I had recommended that she undergo placement of a venous access catheter prior to continuing her chemotherapy. She had returned to the [facility]. Her repeat mammogram there showed residual 1.7 cm spiculated mass at the 3 o'clock position of the left breast, decreased from the previous study. Ultrasound showed persistent mass in the left breast which had decreased in size to 1.8 x 1.4 x 1.0 cm compared to 2.5 x 2.0 x 1.4 cm on the pretreatment study. She opted to continue her treatment here. I had seen her for follow-up again on 09/05/2019. Given the interval from her cycle 2 treatment, I did not attempt any further chemotherapy. On 10/05/2019 she underwent left breast lumpectomy with axillary lymph node sampling. Pathology showed residual invasive ductal carcinoma measuring 1.2 cm in maximum diameter. The margins were free. There was no involvement in 4 lymph nodes. She was then referred to the radiation oncologist and she underwent radiation to the left breast. She completed treatment on 12/26/2019 to a total dose of 5256 cGy. She was then followed on observation/expectant management. Her other medical illnesses include hypertension, GERD, COPD, obstructive sleep apnea, hypothyroidism, degenerative arthritis, fibromyalgia, and anxiety/depression. She has had only minimal tobacco or alcohol use in the past. INTERIM HISTORY: She is seen for a scheduled visit. She says her energy has been pretty good and that she stays busy. Her ECOG score is 1. She has good appetite. She has no fever, night sweats, or hot flashes. She has no shortness of breath, cough, or chest pain. She has ongoing problems with constipation. Bladder function remains adequate. She continues to have pain in her lower back and she also has joint pain, mainly in her elbows and knees. She has shooting pains in her hands and feet, consistent with neuropathy. She also complains that her left breast has been hurting. She has been having significant problems with depression. Medications: Aspirin 81 1 (81 mg) Tablet, enteric coated Oral daily, Ativan 1 Tablet (of 1 mg) Tablet Oral at bedtime PRN, clonazePAM 0.5 Tablet (of 0.5 mg) Tablet Oral at bedtime, Concerta 1 Tablet (of 54 mg) Tablet, controlled release Oral daily PRN, FLUoxetine HCl 1 Tablet (of 20 mg) Oral daily, Lisinopril 1 Tablet (of 40 mg) Oral daily, Lyrica 1 Capsule (of 150 mg) Oral b.i.d., Metoprolol Succinate ER 1 Tablet (of 25 mg) Tablet SR 24 HR Oral daily, Morphine Sulfate ER 1 Tablet (of 30 mg) Tablet, controlled release Oral q 12 hours, Omeprazole 1 Capsule (of 40 mg) Capsule Delayed Release Oral daily PRN Allergies: Amoxicillin and Eliquis. Review of Systems: Constitutional - He has pretty good energy. She is able to do light work. Appetite is good and weight is stable. No fever, night sweats, or hot flashes. ECOG score is 1, ENMT - She has sinus congestion/drainage. No mouth sores. No sore throat or difficulty swallowing, Hematologic/Lymphatic - She has some bruising on aspirin, Respiratory - No shortness of breath. No cough. No pleuritic pain or hemoptysis, Cardiovascular - No angina pain. No palpitations, Gastrointestinal - No nausea or vomiting. Her acid reflux is adequately managed with medication. She has constipation. It is adequately managed with stool softener/laxative. No blood in the stool or black stools, Genitourinary (F) - No dysuria or hematuria. No urinary frequency. No urgency or incontinence, Musculoskeletal - She has really bad pain in her lower back. She also has pain in her elbows and knees, Integumentary - No skin rash, Neurologic - No headache. She sometimes has dizziness. She has numbness/tingling in her feet/toes and to lesser extent in her hands. She also has been having shooting pains with it, Psychiatric - She is having worsening depression. No insomnia. Vital Signs: Performed on Jul 03, 2020 13:34 Height - 67.00 in Weight - 206 lbs (HIGH) BSA - 2.05 sq.m BMI - 32.26 (HIGH) Temperature - 98.9 F (HIGH) Pulse - 58 /min (LOW) Respiration - 17 /min BP - 122/62 mm(hg) O2 Sat - 98 % Pain - 6 Physical Examination: Constitutional - She looks pretty good generally, Eyes - Sclerae nonicteric. Conjunctivae clear, ENMT - No lesions noted in the oral cavity, Hematologic/Lymphatic - No cervical or clavicular adenopathy, Respiratory - Lungs are clear with good air movement bilaterally, Cardiovascular - Heart rhythm is regular. There is no murmur, gallop, or rub noted, Breasts - The right breast shows no mass. There is a mass palpable at the lumpectomy site in the lateral aspect of the left breast, measuring the range of 3 to 4 cm. It is a little tender. There is no axillary adenopathy, Abdomen - Soft. Liver and spleen are not enlarged. There is no abdominal mass or ascites noted and there is no inguinal adenopathy, Extremities - No edema, Neurologic - No focal neurologic deficits noted. Impression: 1. Patient with grade 2 invasive ductal carcinoma of the left breast, triple negative. By clinical evaluation her disease was stage IIB (T2, N0, M0). 2. She has been undergoing neoadjuvant chemotherapy with dose dense AC/T. Her other medical illnesses include: 3. Hypertension. 4. Hypothyroidism. 5. GERD. 6. Degenerative arthritis/degenerative disease of the spine. 7. Fibromyalgia. 8. COPD. 9. Obstructive sleep apnea. 10. Anxiety/depression. She began cycle 1 of Adriamycin/cyclophosphamide on 04/06/2019. She tolerated it with acceptable toxicity and she continued with cycle 2 on 04/21/2019, with cycle 3 on 05/12/2019, and with cycle 4 on 05/26/2019. Cycle 4 was complicated by mucositis, severe enough to require hospitalization. She also was anemic and required PRBC transfusion. She was seen here initially on 06/13/2019 as she desired to complete the remainder of her chemotherapy closer to home. Her first cycle of paclitaxel, though, as she required some type of venous access device, and she had difficulty with the initial attempt to place a PICC line. She eventually did complete cycle 1 of paclitaxel on 06/27/2019. She had no acute toxicity with that treatment, but she subsequently has developed fairly significant neuropathy symptoms. She required a delay with cycle 2 due to a respiratory infection, but it was able to be administered through a peripheral IV in the right arm on 07/18/2019. She then presented to the emergency room at [facility] in [place] yesterday with pain and swelling in her right arm. There is localized swelling and erythema in the ventral aspect of the right forearm just below the right elbow. Her venous Doppler study reportedly showed findings consistent with thrombophlebitis. The cause is uncertain, as it does not appear to correlate with the site of administration of her second cycle of paclitaxel, which was in the posterior aspect of the forearm. She was advised to undergo placement of a venous access device prior to receiving any further chemotherapy. Ultimately this never completed, and she received no further treatment. On 10/05/2019 she underwent left breast lumpectomy with axillary lymph node sampling. Pathology showed residual invasive ductal carcinoma measuring 1.2 cm in maximum diameter. The margins were free. There was no involvement in 4 lymph nodes. Pathologic staging was ypT1c, ypN0. She was then referred to the radiation oncologist and she underwent radiation to the left breast. She completed treatment on 12/26/2019 to a total dose of 5256 cGy. During follow-up she has continued to have significant issues with chronic musculoskeletal pain and with neuropathy pain in her hands and feet. She also is having ongoing problems with depression, though she has been taking fluoxetine. Plan: She continues observation/ecpectant management for the breast cancer. At least for now her pain medications will remain the same. She will need to follow-up in behavioral health for the depression. She will be due for surveillance mammogram/ultrasound before the end of this month. I will tentatively plan a follow-up visit in 3 months. Signed By: Bright Cameron M.D. <<Signature on File>>
== END 2020-07-03 13:30 | disposition home or self-care (01) ==
LOC: ONCMED 13:30
PROVIDERS: PCP Nurse Practitioner Family; Visit Provider Internal Medicine Medical Oncology
DX: Z08 Encounter for follow-up examination after completed treatment for malignant neoplasm (principal); Z85.3 Personal history of malignant neoplasm of breast; I10 Essential (primary) hypertension; E03.9 Hypothyroidism, unspecified; K21.9 Gastro-esophageal reflux disease without esophagitis; M47.9 Spondylosis, unspecified; M79.7 Fibromyalgia; J44.9 Chronic obstructive pulmonary disease, unspecified; G47.33 Obstructive sleep apnea (adult) (pediatric); F41.9 Anxiety disorder, unspecified; F32.9 Major depressive disorder, single episode, unspecified; Z79.899 Other long term (current) drug therapy; Z92.21 Personal history of antineoplastic chemotherapy
CPT/HCPCS: 99214

== ENCOUNTER → 2020-07-16 07:44 | Outpatient (BNVA) | payer MEDICARE, MEDICAID, SELFPAY | PROVIDERS: PCP Nurse Practitioner Family; Visit Provider Nurse Practitioner | DX: F33.0 Major depressive disorder, recurrent, mild (principal); F41.1 Generalized anxiety disorder; F90.2 Attention-deficit hyperactivity disorder, combined type | CPT/HCPCS: 99213 ==

== ENCOUNTER 2020-07-27 10:04 | Outpatient (CLI) | payer MEDICARE, MEDICAID, SELFPAY ==
--- NOTE | 2020-07-27 10:19 | MM_ITS ---
WS: [id number] BILATERAL DIGITAL DIAGNOSTIC MAMMOGRAM MAMMOGRAPHY WITH CAD CLINICAL INFORMATION: HX OF BREAST CA;MAS LEFT LUMPECTOMY SITE COMPARISON: September 02, 2019 TECHNIQUE: Bilateral CC, MLO, and ML views. FINDINGS: Scattered fibroglandular densities bilaterally. Prior postoperative changes lumpectomy upper outer le ft breast. Adjacent surgical clips. Large ovoid density at the surgical cavity measuring 3.8 x 3.7 cm . Previously this measured 12 mm. Ultrasound is pending. ULTRASOUND BREAST LEFT TECHNIQUE: Ultrasound left breast focused area of concern. CLINICAL INFORMATION: HX OF BREAST CA;MAS LEFT LUMPECTOMY SITE COMPARISON: September 02, 2019 FINDINGS: Ultrasound left breast at the lumpectomy scar 3:00 position 5 cm the nipple. Complex cystic lesion wi th internal septations. This measures approximately 3.7 3.6 x 2.8 cm. This could represent postoperat ana seroma but is indeterminant and recurrence not entirely excluded. Considering the size recommend further evaluation with ultrasound-guided aspiration/biopsy. MM/[place] [id number] IMPRESSION: BI-RADS: 4-Suspicious Finding-Biopsy Should Be Considered FOLLOW UP: US Guided Biopsy Recommended
== END 2020-07-27 10:05 | disposition home or self-care (01) ==
LOC: RADSHAW 10:11
PROVIDERS: PCP Nurse Practitioner Family; Visit Provider Internal Medicine Medical Oncology
DX: Z85.3 Personal history of malignant neoplasm of breast (principal); N63.25 Unspecified lump in the left breast, overlapping quadrants
CPT/HCPCS: 76642; 77066

== ENCOUNTER → 2020-08-28 11:38 | Outpatient (BNVA) | payer MEDICARE, MEDICAID, SELFPAY | PROVIDERS: PCP Nurse Practitioner Family; Visit Provider Nurse Practitioner Family | DX: Z20.828 Contact with and (suspected) exposure to other viral communicable diseases (principal); R68.89 Other general symptoms and signs; R11.2 Nausea with vomiting, unspecified | CPT/HCPCS: 87400; 87635 ==

== ENCOUNTER → 2020-09-14 13:35 | Outpatient (BNVA) | payer MEDICARE, MEDICAID, SELFPAY | PROVIDERS: PCP Nurse Practitioner Family; Visit Provider Nurse Practitioner | DX: F33.0 Major depressive disorder, recurrent, mild (principal); F41.1 Generalized anxiety disorder; F90.2 Attention-deficit hyperactivity disorder, combined type | CPT/HCPCS: 99214 ==

== ENCOUNTER 2020-10-02 11:26 | Outpatient (CLI) | payer MEDICARE, MEDICAID, SELFPAY ==
--- NOTE | 2020-10-02 18:55 | ONC FU_ITS ---
Dr. Cameron Patient Follow-Up Note Patient: Ana Chavez Unit #: [id number]: 1960 Dicatated By: Bright Cameron M.D.Date of Visit:Oct 02, 2020 Onc Med Follow-up/Prog Note Chief Complaint: Breast cancer. History of Present Illness: This is a 60 year-old woman with grade 2 invasive ductal carcinoma of the left breast, by clinical evaluation stage IIB (T2, N0, M0), ER/WA negative and HER-2/luz negative. She had presented with abnormal screening mammogram. The study from 12/09/2018 showed a new mass in the left upper outer quadrant measuring 2 x 1.5 cm. Additional evaluation was recommended. She returned for additional mammographic views and ultrasound on 03/01/2019. The mammogram showed an irregular spiculated mass in the left upper outer quadrant measuring 2.5 x 1.9 cm. It appeared to have increased on the November study. Ultrasound showed a solid hypoechoic mass measuring 2.6 x 1.8 x 2.2 cm. The findings were BI-RADS 5, highly suggestive of malignancy. Ultrasound directed biopsy of the left breast mass on 03/11/2019 showed grade 2 invasive ductal carcinoma. The best prognostic profile showed unfavorable KI 67 at 39%. The tumor was ER/WA negative, both < 1%. It was negative for overexpression of HER-2/luz, 1+ by IHC with amplification ratio by FISH of 1.0 with 1.9 HER-2 copies/cell. She was then seen at the [facility] in [place] for further management of the breast cancer. She was recommended to undergo neoadjuvant chemotherapy with dose dense Adriamycin/cyclophosphamide for 4 cycles followed by paclitaxel every 2 weeks for 4 cycles. She completed the 4th cycle of AC on 05/26/2019. She was seen here initially on 06/13/2019 because she desired to complete the remainder of her chemotherapy closer to home. Subsequent to that visit, I had arranged for placement of a PICC line, as she had very poor peripheral venous access and she did not want to have a Port-A-Cath placed. She had difficulty with the procedure, though, and she opted to stop it before it was completed. She eventually did get an IV placed into the right arm, and she began cycle 1 of paclitaxel on 06/27/2019. She tolerated it without acute toxicity, but her cycle 2 was delayed due to a respiratory infection, for which she was given antibiotic therapy. She was unable continue with cycle 2 of paclitaxel on 07/18/2019. It was administered via peripheral IV in the right arm at the full dosage. She had then presented to the emergency room at [facility] in [place] with pain and swelling in her right arm. Her venous Doppler study showed evidence of thrombophlebitis, but there was no actual deep vein thrombosis identified. As a precaution, I did recommend that she start anticoagulation with apixaban. I had seen her for a follow-up visit on 07/27/2019. I had recommended that she undergo placement of a venous access catheter prior to continuing her chemotherapy. She had returned to the [facility]. Her repeat mammogram there showed residual 1.7 cm spiculated mass at the 3 o'clock position of the left breast, decreased from the previous study. Ultrasound showed persistent mass in the left breast which had decreased in size to 1.8 x 1.4 x 1.0 cm compared to 2.5 x 2.0 x 1.4 cm on the pretreatment study. She opted to continue her treatment here. I had seen her for follow-up again on 09/05/2019. Given the interval from her cycle 2 treatment, I did not attempt any further chemotherapy. On 10/05/2019 she underwent left breast lumpectomy with axillary lymph node sampling. Pathology showed residual invasive ductal carcinoma measuring 1.2 cm in maximum diameter. The margins were free. There was no involvement in 4 lymph nodes. She was then referred to the radiation oncologist and she underwent radiation to the left breast. She completed treatment on 12/26/2019 to a total dose of 5256 cGy. She was then followed on observation/expectant management. Her other medical illnesses include hypertension, GERD, COPD, obstructive sleep apnea, hypothyroidism, degenerative arthritis, fibromyalgia, and anxiety/depression. She has had only minimal tobacco or alcohol use in the past. INTERIM HISTORY: Her surveillance diagnostic mammogram on 07/27/2020 showed postoperative changes associated with the upper outer left breast lumpectomy. A large ovoid density at the surgical cavity measured 3.8 x 3.7 cm. It previously measured 12 mm. Ultrasound showed complex cystic lesion with internal septations measuring 3.7 x 3.6 x 2.8 cm, possibly representing postoperative seroma, but it was felt to be indeterminate, and recurrence was not entirely excluded. On 08/16/2020 she underwent fine-needle aspiration with ultrasound-guided core needle biopsy of the complex cystic and solid mass by Dr. Denisse Gurrola. Pathology on the core needle biopsy showed benign adipose tissue with serosanguineous coagulum, consistent with seroma. With that finding, she was recommended to have a 6-month follow-up diagnostic left unilateral mammogram and to continue with bilateral yearly diagnostic mammography. She is seen for a scheduled visit. She says she has had a rough last couple of weeks with nausea and a lot of sick headaches. She was treated with Levaquin for 5 days for suspected urinary tract infection, and with that she has felt somewhat better. She continues, though, to have a lot of pain. She says her right hip and left knee are going out. She has a lot of pain in her left elbow and left hand and she complains that her left hand goes numb. She has continued pain in the left breast/chest wall/axillary area. She has been taking a lot of ibuprofen. She has limited activity, but she is able to do some light work. ECOG score is 1. Her appetite has been okay, but she says she has been eating the wrong kind of food. She does not have fever or night sweats. She has just occasional hot flashes. She has shortness of breath. She does not complain of cough and she is not having chest pain. Her acid reflux is adequately managed as long as she takes her medication. She has constipation, but bowels are moving with a laxative. Bladder function is okay now. She still has some headaches, attributable to sinus or nerves. She was having problems with balance, but that did not improve when she cut back on her Lyrica. She now takes it just at bedtime. She also has pain in her left foot and numbness in her left big toe. She has ongoing problems with anxiety and depression. Medications: Aspirin 81 1 (81 mg) Tablet, enteric coated Oral daily, Ativan 1 Tablet (of 1 mg) Tablet Oral at bedtime PRN, clonazePAM 0.5 Tablet (of 0.5 mg) Tablet Oral at bedtime, Concerta 1 Tablet (of 54 mg) Tablet, controlled release Oral daily PRN, FLUoxetine HCl 1 Tablet (of 20 mg) Oral daily, Lisinopril 1 Tablet (of 40 mg) Oral daily, Lyrica 1 Capsule (of 150 mg) Oral daily, Metoprolol Succinate ER 1 Tablet (of 25 mg) Tablet SR 24 HR Oral daily, Morphine Sulfate ER 1 Tablet (of 30 mg) Tablet, controlled release Oral q 12 hours, Omeprazole 1 Capsule (of 40 mg) Capsule Delayed Release Oral daily PRN Allergies: Amoxicillin and Eliquis. Vital Signs: Performed on Oct 02, 2020 11:42 Height - 67.00 in Weight - 210 lbs (HIGH) BSA - 2.06 sq.m BMI - 32.89 (HIGH) Temperature - 98.0 F (LOW) Pulse - 90 /min Respiration - 18 /min BP - 120/70 mm(hg) O2 Sat - 98 % Pain - 8 Physical Examination: Constitutional - She looks pretty good generally, Eyes - Sclerae nonicteric. Conjunctivae clear, ENMT - No lesions noted in the oral cavity, Hematologic/Lymphatic - No cervical or clavicular adenopathy, Respiratory - Lungs are clear with good air movement bilaterally, Cardiovascular - Heart rhythm is regular. There is a I/ systolic murmur at the base. There is no gallop or rub noted, Breasts - The right breast shows no mass. There is a residual, ill-defined nodule at the lumpectomy site in the lateral aspect of the left breast, still measuring the range of 3 to 4 cm. It is tender. There is no axillary adenopathy, Abdomen - Soft. Liver and spleen are not enlarged. There is no abdominal mass or ascites noted and there is no inguinal adenopathy, Extremities - No edema, Neurologic - No focal neurologic deficits noted. Problem List: 1. Patient with grade 2 invasive ductal carcinoma of the left breast, triple negative. By clinical evaluation her disease was stage IIB (T2, N0, M0). 2. Hypertension. 3. Hypothyroidism. 4. GERD. 5. Degenerative arthritis/degenerative disease of the spine. 6. Fibromyalgia. 7. COPD. 8. Obstructive sleep apnea. 9. Anxiety/depression. Problems Addressed with this Encounter and Plan: 1. Patient with grade 2 invasive ductal carcinoma of the left breast, triple negative. By clinical evaluation her disease was stage IIB (T2, N0, M0). She was given neoadjuvant chemotherapy with dose dense AC/T. She completed her 4 cycles Adriamycin/cyclophosphamide from 04/06/2019 through 05/26/2019. Cycle 4 was complicated by mucositis, severe enough to require hospitalization. She also was anemic and required PRBC transfusion. Her further treatment was then delayed due to issues with venous access. She eventually began cycle 1 of paclitaxel via a PICC line on 06/27/2019. Cycle 2 was delayed and administered peripherally on 07/18/2019. Due to problems with her venous access, no further chemotherapy was attempted. On 10/05/2019 she underwent left breast lumpectomy with axillary lymph node sampling. Pathology showed residual invasive ductal carcinoma measuring 1.2 cm in maximum diameter. The margins were free. There was no involvement in 4 lymph nodes. Pathologic staging was ypT1c, ypN0. She was then underwent radiation to the left breast. She completed treatment on 12/26/2019 to a total dose of 5256 cGy. Her surveillance mammogram/ultrasound on 07/27/2020 showed complex cystic lesion in the area of the lumpectomy in the lateral aspect of the left breast, possibly due to seroma, but the appearance was indeterminate and recurrence was not entirely excluded. She then underwent ultrasound-guided needle aspiration and core needle biopsy of the cystic mass, and pathology was consistent with seroma. At this point she continues to have multiple complaints, including pain in multiple areas, fatigue, headaches, and GI symptoms. These appear to be unrelated, as there has been no evidence of recurrence/progression of the breast cancer. She will remain on observation/expectant management. I will see her again in 3 months. 2. She has degenerative arthritis/degenerative disease of the spine and fibromyalgia with chronic pain. She is being maintained on a stable dose of extended release morphine, 30 mg every 12 hours. However, as she does appear having significant side effects with the Lyrica, the dosage will reduce to 75 mg to be taken just at bedtime. Signed By: Bright Cameron M.D. <<Signature on File>>
== END 2020-10-02 11:27 | disposition home or self-care (01) ==
LOC: ONCMED 11:26
PROVIDERS: PCP Nurse Practitioner Family; Visit Provider Internal Medicine Medical Oncology
DX: Z08 Encounter for follow-up examination after completed treatment for malignant neoplasm (principal); Z85.3 Personal history of malignant neoplasm of breast; M47.9 Spondylosis, unspecified; M79.7 Fibromyalgia; G89.29 Other chronic pain; R53.83 Other fatigue; R51.9 Headache, unspecified; K21.9 Gastro-esophageal reflux disease without esophagitis; Z79.891 Long term (current) use of opiate analgesic; Z92.3 Personal history of irradiation; Z92.21 Personal history of antineoplastic chemotherapy; Z79.899 Other long term (current) drug therapy
CPT/HCPCS: 99214

== ENCOUNTER → 2020-10-09 16:32 | Outpatient (BNVA) | payer MEDICARE, MEDICAID, SELFPAY | PROVIDERS: PCP Nurse Practitioner Family; Visit Provider Nurse Practitioner Family | DX: N39.0 Urinary tract infection, site not specified (principal) | CPT/HCPCS: 81003 ==

== ENCOUNTER → 2020-10-12 08:45 | Outpatient (BNVA) | payer MEDICARE, MEDICAID, SELFPAY | PROVIDERS: PCP Nurse Practitioner Family; Visit Provider Nurse Practitioner Family | DX: S83.91XA Sprain of unspecified site of right knee, initial encounter (principal); W10.8XXA Fall (on) (from) other stairs and steps, initial encounter; S93.409A Sprain of unspecified ligament of unspecified ankle, initial encounter; S83.92XA Sprain of unspecified site of left knee, initial encounter; M16.11 Unilateral primary osteoarthritis, right hip | CPT/HCPCS: 73502; 73562; 73610; 73630 ==

== ENCOUNTER 2020-10-12 14:30 | Outpatient (CLI) | payer MEDICARE, MEDICAID, SELFPAY | END 2020-10-12 15:30 | disposition home or self-care (01) | LOC: SPT 07-22 11:41 | PROVIDERS: PCP Nurse Practitioner Family; Visit Provider Podiatrist Foot & Ankle Surgery | DX: S82.839D Other fracture of upper and lower end of unspecified fibula, subsequent encounter for closed fracture with routine healing (principal); X58.XXXD Exposure to other specified factors, subsequent encounter | CPT/HCPCS: 97760; L4361 ==

== ENCOUNTER → 2020-10-25 08:38 | Outpatient (BNVA) | payer MEDICARE, MEDICAID, SELFPAY | PROVIDERS: PCP Nurse Practitioner Family; Visit Provider Nurse Practitioner | DX: F33.0 Major depressive disorder, recurrent, mild (principal); F41.1 Generalized anxiety disorder; F90.2 Attention-deficit hyperactivity disorder, combined type | CPT/HCPCS: 99214 ==

== ENCOUNTER → 2020-10-30 15:08 | Outpatient (BNVA) | payer MEDICARE, MEDICAID, SELFPAY | PROVIDERS: PCP Nurse Practitioner Family; Visit Provider Podiatrist Foot & Ankle Surgery | DX: S82.839A Other fracture of upper and lower end of unspecified fibula, initial encounter for closed fracture (principal); S82.832A Other fracture of upper and lower end of left fibula, initial encounter for closed fracture; W10.9XXA Fall (on) (from) unspecified stairs and steps, initial encounter; M79.672 Pain in left foot; Z46.89 Encounter for fitting and adjustment of other specified devices | CPT/HCPCS: 73610; 73630 ==

== ENCOUNTER 2020-10-30 15:44 | Outpatient (CLI) | payer MEDICARE, MEDICAID, SELFPAY | END 2020-10-30 15:45 | disposition home or self-care (01) | LOC: SPT 15:45 | PROVIDERS: PCP Nurse Practitioner Family; Visit Provider Podiatrist Foot & Ankle Surgery | DX: Z46.89 Encounter for fitting and adjustment of other specified devices (principal); M79.672 Pain in left foot | CPT/HCPCS: 73610; 73630; 97760; L1902 ==

== ENCOUNTER → 2020-12-10 08:28 | Outpatient (BNVA) | payer MEDICARE, MEDICAID, SELFPAY | PROVIDERS: PCP Nurse Practitioner Family; Visit Provider Nurse Practitioner | DX: F41.1 Generalized anxiety disorder (principal); F33.0 Major depressive disorder, recurrent, mild; F90.2 Attention-deficit hyperactivity disorder, combined type | CPT/HCPCS: 99214 ==

== ENCOUNTER 2021-01-01 13:30 | Outpatient (CLI) | payer MEDICARE, MEDICAID, SELFPAY ==
--- NOTE | 2021-01-04 07:06 | ONC FU_ITS ---
Dr. Cameron Patient Follow-Up Note Patient: Ana Chavez < Unit #: [id number]: 1960 Dicatated By: Bright Cameron M.D.Date of Visit:Jan 01, 2021 Onc Med Follow-up/Prog Note Chief Complaint: Breast cancer. History of Present Illness: This is a 60 year-old woman with grade 2 invasive ductal carcinoma of the left breast, by clinical evaluation stage IIB (T2, N0, M0), ER/IL negative and HER-2/luz negative. She had presented with abnormal screening mammogram. The study from 12/09/2018 showed a new mass in the left upper outer quadrant measuring 2 x 1.5 cm. Additional evaluation was recommended. She returned for additional mammographic views and ultrasound on 03/01/2019. The mammogram showed an irregular spiculated mass in the left upper outer quadrant measuring 2.5 x 1.9 cm. It appeared to have increased on the November study. Ultrasound showed a solid hypoechoic mass measuring 2.6 x 1.8 x 2.2 cm. The findings were BI-RADS 5, highly suggestive of malignancy. Ultrasound directed biopsy of the left breast mass on 03/11/2019 showed grade 2 invasive ductal carcinoma. The best prognostic profile showed unfavorable KI 67 at 39%. The tumor was ER/IL negative, both < 1%. It was negative for overexpression of HER-2/luz, 1+ by IHC with amplification ratio by FISH of 1.0 with 1.9 HER-2 copies/cell. She was then seen at the [facility] in [place] for further management of the breast cancer. She was recommended to undergo neoadjuvant chemotherapy with dose dense Adriamycin/cyclophosphamide for 4 cycles followed by paclitaxel every 2 weeks for 4 cycles. She completed the 4th cycle of AC on 05/26/2019. She was seen here initially on 06/13/2019 because she desired to complete the remainder of her chemotherapy closer to home. Subsequent to that visit, I had arranged for placement of a PICC line, as she had very poor peripheral venous access and she did not want to have a Port-A-Cath placed. She had difficulty with the procedure, though, and she opted to stop it before it was completed. She eventually did get an IV placed into the right arm, and she began cycle 1 of paclitaxel on 06/27/2019. She tolerated it without acute toxicity, but her cycle 2 was delayed due to a respiratory infection, for which she was given antibiotic therapy. She was unable continue with cycle 2 of paclitaxel on 07/18/2019. It was administered via peripheral IV in the right arm at the full dosage. She had then presented to the emergency room at [facility] in [place] with pain and swelling in her right arm. Her venous Doppler study showed evidence of thrombophlebitis, but there was no actual deep vein thrombosis identified. As a precaution, I did recommend that she start anticoagulation with apixaban. I had seen her for a follow-up visit on 07/27/2019. I had recommended that she undergo placement of a venous access catheter prior to continuing her chemotherapy. She had returned to the [facility]. Her repeat mammogram there showed residual 1.7 cm spiculated mass at the 3 o'clock position of the left breast, decreased from the previous study. Ultrasound showed persistent mass in the left breast which had decreased in size to 1.8 x 1.4 x 1.0 cm compared to 2.5 x 2.0 x 1.4 cm on the pretreatment study. She opted to continue her treatment here. I had seen her for follow-up again on 09/05/2019. Given the interval from her cycle 2 treatment, I did not attempt any further chemotherapy. On 10/05/2019 she underwent left breast lumpectomy with axillary lymph node sampling. Pathology showed residual invasive ductal carcinoma measuring 1.2 cm in maximum diameter. The margins were free. There was no involvement in 4 lymph nodes. She was then referred to the radiation oncologist and she underwent radiation to the left breast. She completed treatment on 12/26/2019 to a total dose of 5256 cGy. She was then followed on observation/expectant management. Her other medical illnesses include hypertension, GERD, COPD, obstructive sleep apnea, hypothyroidism, degenerative arthritis, fibromyalgia, and anxiety/depression. She has had only minimal tobacco or alcohol use in the past. INTERIM HISTORY: Her surveillance diagnostic mammogram on 07/27/2020 showed postoperative changes associated with the upper outer left breast lumpectomy. A large ovoid density at the surgical cavity measured 3.8 x 3.7 cm. It previously measured 12 mm. Ultrasound showed complex cystic lesion with internal septations measuring 3.7 x 3.6 x 2.8 cm, possibly representing postoperative seroma, but it was felt to be indeterminate, and recurrence was not entirely excluded. On 08/16/2020 she underwent fine-needle aspiration with ultrasound-guided core needle biopsy of the complex cystic and solid mass by Dr. Denisse Gurrola. Pathology on the core needle biopsy showed benign adipose tissue with serosanguineous coagulum, consistent with seroma. With that finding, she was recommended to have a 6-month follow-up diagnostic left unilateral mammogram and to continue with bilateral yearly diagnostic mammography. She is seen for a scheduled visit. She says she is having a lot of trouble right now, but much of that is attributable to her social situation and depression. She says she is forcing herself to get up and walk her dog in the morning. She is able to do some light housework. ECOG score is 1. Her appetite is good. She has not had fever. She was having hot flashes, but not so much lately. She has allergy related sinus symptoms. She does not complain of cough. She has some shortness of breath with activity. She continues to have some pain in her left breast, but she otherwise does not complain of chest pain. She has no GI/ complaints other than constipation, and she has been having to use a lot of laxatives. She also has pain in her left knee and leg and in her lower back and hips. She has a lot of headaches. She is sometimes off balance. She has some numbness in her feet and toes. Her left hand also goes numb, but that she attributes to carpal tunnel. Medications: Aspirin 81 1 (81 mg) Tablet, enteric coated Oral daily, Ativan 1 Tablet (of 1 mg) Tablet Oral at bedtime PRN, clonazePAM 0.5 Tablet (of 0.5 mg) Tablet Oral at bedtime, Concerta 1 Tablet (of 54 mg) Tablet, controlled release Oral daily PRN, FLUoxetine HCl 1 Tablet (of 80 mg) Oral daily, Lisinopril 1 Tablet (of 40 mg) Oral daily, Lyrica 1 Capsule (of 75 mg) Oral daily, Metoprolol Succinate ER 1 Tablet (of 25 mg) Tablet SR 24 HR Oral daily, Morphine Sulfate ER 1 Tablet (of 30 mg) Tablet, controlled release Oral q 12 hours, Omeprazole 1 Capsule (of 40 mg) Capsule Delayed Release Oral daily PRN Allergies: Amoxicillin and Eliquis. Vital Signs: Performed on Jan 01, 2021 13:21 Height - 67.00 in Weight - 220 lbs (HIGH) BSA - 2.11 sq.m BMI - 34.46 (HIGH) Temperature - 98.6 F Pulse - 65 /min Respiration - 17 /min BP - 156/78 mm(hg) (HIGH) O2 Sat - 97 % Pain - 6 Physical Examination: Constitutional - She looks pretty good generally, Eyes - Sclerae nonicteric. Conjunctivae clear, ENMT - No lesions noted in the oral cavity, Hematologic/Lymphatic - No cervical or clavicular adenopathy, Respiratory - Lungs are clear with good air movement bilaterally, Cardiovascular - Heart rhythm is regular. There is a I/ systolic murmur at the base. There is no gallop or rub noted, Breasts - The right breast shows no mass. There is nodularity at the lumpectomy site in the lateral aspect of the left breast. There is no axillary adenopathy, Abdomen - Soft. Liver and spleen are not enlarged. There is no abdominal mass or ascites noted and there is no inguinal adenopathy, Extremities - No edema, Neurologic - No focal neurologic deficits noted. Lab/Imaging: Test performed on Jan 01, 2021 11:48 Glucose 96 mg/dL BUN 22 mg/dL Creatinine 0.99 mg/dL Cr Clearance (Est) 93.24 mL/min Sodium 139 mmol/L Potassium 3.8 mmol/L Chloride 103 mmol/L CO2 27 mmol/L Calcium 8.8 mg/dL Protein, Total 6.4 g/dL Albumin 3.8 g/dL Bilirubin, Total 0.3 mg/dL Alkaline Phosphatase 109 IU/L AST (SGOT) 14 IU/L ALT (SGPT) 9 IU/L WBC 5.5 10^9/L RBC 4.16 10^12/L HGB 12.4 g/dL HCT 38.8 % MCV 93.3 fl MCH 29.8 pg MCHC 32.0 g/dL RDW 13.1 % Platelet Count 165 10^9/L MPV 9.1 fL Neutrophils (Gran) 3.44 10^9/L Lymphocytes 1.30 10^9/L Monocytes 0.45 10^9/L Eosinophils 0.20 10^9/L Basophils 0.04 10^9/L Manual Lymphocytes 24 % Manual Monocytes 8 % Manual Eosinophils 4 % Manual Basophils 1 % Problem List: 1. Patient with grade 2 invasive ductal carcinoma of the left breast, triple negative. By clinical evaluation her disease was stage IIB (T2, N0, M0). 2. Hypertension. 3. Hypothyroidism. 4. GERD. 5. Degenerative arthritis/degenerative disease of the spine. 6. Fibromyalgia. 7. COPD. 8. Obstructive sleep apnea. 9. Anxiety/depression. Problems Addressed with this Encounter and Plan: 1. Patient with grade 2 invasive ductal carcinoma of the left breast, triple negative. By clinical evaluation her disease was stage IIB (T2, N0, M0). She was given neoadjuvant chemotherapy with dose dense AC/T. She completed her 4 cycles Adriamycin/cyclophosphamide from 04/06/2019 through 05/26/2019. Cycle 4 was complicated by mucositis, severe enough to require hospitalization. She also was anemic and required PRBC transfusion. Her further treatment was then delayed due to issues with venous access. She eventually began cycle 1 of paclitaxel via a PICC line on 06/27/2019. Cycle 2 was delayed and administered peripherally on 07/18/2019. Due to problems with her venous access, no further chemotherapy was attempted. On 10/05/2019 she underwent left breast lumpectomy with axillary lymph node sampling. Pathology showed residual invasive ductal carcinoma measuring 1.2 cm in maximum diameter. The margins were free. There was no involvement in 4 lymph nodes. Pathologic staging was ypT1c, ypN0. She was then underwent radiation to the left breast. She completed treatment on 12/26/2019 to a total dose of 5256 cGy. Her surveillance mammogram/ultrasound on 07/27/2020 showed complex cystic lesion in the area of the lumpectomy in the lateral aspect of the left breast, possibly due to seroma, but the appearance was indeterminate and recurrence was not entirely excluded. She then underwent ultrasound-guided needle aspiration and core needle biopsy of the cystic mass, and pathology was consistent with seroma. She has since then been followed expectantly. She continues to have some pain in the lumpectomy area of the left breast. There are no suspicious findings on her exam, and her overall clinical status appears stable. She remains on observation/expectant management. She will be due for her 6-month interval left unilateral diagnostic mammogram next month, and that will be scheduled. She will have further evaluation as indicated. I will tentatively plan a follow-up visit in 6 months. 2. She has degenerative arthritis/degenerative disease of the spine and fibromyalgia with chronic pain. Following her last visit she had stopped taking Lyrica. She will now try restarting it at 75 mg just at bedtime. She will continue the extended release morphine at the same dosage, 30 mg every 12 hours. 3. She has constipation. I will try adding Amitiza 24 mcg twice daily. Signed By: Bright Cameron M.D. <<Signature on File>>
== END 2021-01-01 13:31 | disposition home or self-care (01) ==
PROVIDERS: PCP Nurse Practitioner Family; Visit Provider Internal Medicine Medical Oncology
DX: Z08 Encounter for follow-up examination after completed treatment for malignant neoplasm (principal); Z85.3 Personal history of malignant neoplasm of breast; I10 Essential (primary) hypertension; E03.9 Hypothyroidism, unspecified; K21.9 Gastro-esophageal reflux disease without esophagitis; M19.90 Unspecified osteoarthritis, unspecified site; M79.7 Fibromyalgia; J44.9 Chronic obstructive pulmonary disease, unspecified; G47.33 Obstructive sleep apnea (adult) (pediatric); F41.9 Anxiety disorder, unspecified; F32.9 Major depressive disorder, single episode, unspecified; Z79.899 Other long term (current) drug therapy; Z92.21 Personal history of antineoplastic chemotherapy; Z92.3 Personal history of irradiation
CPT/HCPCS: 99214

== ENCOUNTER → 2021-01-03 07:56 | Outpatient (BNVA) | payer MEDICARE, MEDICAID, SELFPAY | PROVIDERS: PCP Nurse Practitioner Family; Visit Provider Nurse Practitioner | DX: F33.0 Major depressive disorder, recurrent, mild (principal); F41.1 Generalized anxiety disorder | CPT/HCPCS: 99214 ==

== ENCOUNTER → 2021-01-24 12:08 | Outpatient (BNVA) | payer MEDICARE, MEDICAID, SELFPAY | PROVIDERS: PCP Nurse Practitioner Family; Visit Provider Nurse Practitioner Family | DX: R41.3 Other amnesia (principal); E55.9 Vitamin D deficiency, unspecified; I10 Essential (primary) hypertension; Z13.6 Encounter for screening for cardiovascular disorders; N64.4 Mastodynia; J01.90 Acute sinusitis, unspecified; B96.89 Other specified bacterial agents as the cause of diseases classified elsewhere; R47.9 Unspecified speech disturbances; Z79.899 Other long term (current) drug therapy | CPT/HCPCS: 80061; 81003; 82306; 82607; 82746; 83036; 84439; 84443; 86000; 86592; 86618; 86666; 86757; 87806 ==

== ENCOUNTER 2021-01-25 12:42 | Outpatient (CLI) | payer MEDICARE, MEDICAID, SELFPAY ==
--- NOTE | 2021-01-25 12:57 | MM_ITS ---
WS: [id number] DIAGNOSTIC BILATERAL DIGITAL MAMMOGRAM WITH CAD RIGHT breast ultrasound, limited HISTORY: LT BREAST Cancer; rt BREAST LUMP COMPARISON: 07/27/2020, 09/02/2019 TECHNIQUE: Bilateral craniocaudad, mediolateral oblique, and mediolateral views are submitted. Spot c ompression LEFT CC. Computer aided detection utilized. Breast composition: There are scattered areas of fibroglandular density. High density mass in the mervat gical cavity in the upper-outer quadrant of the LEFT breast is slightly decreased in size. Mass now m easures 3.6 x 2.7 cm as compared to 3.7 x 3.8 cm. No increase in size. No distortion or increasing so lid component. Patient also describes a palpable mass in the RIGHT axilla. This area cannot be imaged by mammography. Ultrasound will be performed. RIGHT breast ultrasound, limited. RIGHT breast ultrasound is directed to the palpable abnormality. There is a small well-circumscribed hypoechoic nodule measuring 3 x 3 x 3 mm in the RIGHT axilla. This has the appearance of the small cy st. No increased vascularity. No additional abnormality. No enlarged lymph nodes. MM/[id number] IMPRESSION: BI-RADS: 3-Probably Benign FOLLOW UP: 6 Month Follow-up 1. Decrease in size of the high density mass in the LEFT axillary tail. Probab ly a postoperative seroma. No increasing solid component. 2. Palpable area in the high RIGHT axilla corresponds to a small 3 mm cyst. No adenopathy.
--- NOTE | 2021-01-25 13:39 | US_ITS ---
WS: [id number] DIAGNOSTIC BILATERAL DIGITAL MAMMOGRAM WITH CAD RIGHT breast ultrasound, limited HISTORY: LT BREAST Cancer; rt BREAST LUMP COMPARISON: 07/27/2020, 09/02/2019 TECHNIQUE: Bilateral craniocaudad, mediolateral oblique, and mediolateral views are submitted. Spot c ompression LEFT CC. Computer aided detection utilized. Breast composition: There are scattered areas of fibroglandular density. High density mass in the mervat gical cavity in the upper-outer quadrant of the LEFT breast is slightly decreased in size. Mass now m easures 3.6 x 2.7 cm as compared to 3.7 x 3.8 cm. No increase in size. No distortion or increasing so lid component. Patient also describes a palpable mass in the RIGHT axilla. This area cannot be imaged by mammography. Ultrasound will be performed. RIGHT breast ultrasound, limited. RIGHT breast ultrasound is directed to the palpable abnormality. There is a small well-circumscribed hypoechoic nodule measuring 3 x 3 x 3 mm in the RIGHT axilla. This has the appearance of the small cy st. No increased vascularity. No additional abnormality. No enlarged lymph nodes. US/US breast RT limited* [id number] IMPRESSION: BI-RADS: 3-Probably Benign FOLLOW UP: 6 Month Follow-up 1. Decrease in size of the high density mass in the LEFT axillary tail. Probab ly a postoperative seroma. No increasing solid component. 2. Palpable area in the high RIGHT axilla corresponds to a small 3 mm cyst. No adenopathy.
== END 2021-01-25 12:43 | disposition home or self-care (01) ==
LOC: RADSHAW 12:50
PROVIDERS: PCP Nurse Practitioner Family; Visit Provider Internal Medicine Medical Oncology
DX: C50.412 Malignant neoplasm of upper-outer quadrant of left female breast (principal); N63.11 Unspecified lump in the right breast, upper outer quadrant
CPT/HCPCS: 76642; 77065; 77066

== ENCOUNTER → 2021-02-14 07:10 | Outpatient (BNVA) | payer MEDICARE, MEDICAID, SELFPAY | PROVIDERS: PCP Nurse Practitioner Family; Visit Provider Nurse Practitioner | DX: F33.0 Major depressive disorder, recurrent, mild (principal); F41.1 Generalized anxiety disorder; F90.2 Attention-deficit hyperactivity disorder, combined type | CPT/HCPCS: 99214 ==

== ENCOUNTER 2021-03-11 12:06 | Outpatient (CLI) | payer MEDICARE, MEDICAID, SELFPAY ==
--- NOTE | 2021-03-11 12:19 | US_ITS ---
WS: [id number] ULTRASOUND THYROID TECHNIQUE: Ultrasound of the thyroid. CLINICAL INFORMATION: BREAST CANCER/HYPOTHYROIDISM COMPARISON: March 09, 2020 FINDINGS: Thyroid: Right and left thyroid lobes are normal in size and echotexture. Bilateral complex cystic th yroid nodules. Right thyroid lobe: 4.3 cm x 1.8 cm x 1.7 cm Previously described hypoechoic nodule mid right thyroid today appears cystic and slightly smaller me asuring 6.0 x 5.0 x 5.0 mm Left thyroid lobe: 5.2 cm x 1.3 cm x 1.4 cm. Previously described large cyst inferior left thyroid has resolved in the interim. New nodule in the LEFT mid thyroid measuring with irregular margins and internal echogenic foci measu ring 11 x 10 x 12 mm. Small amount of associated vascularity. Recommend ultrasound-guided FNA for fur ther evaluation. Additional subcentimeter bilateral spongiform and cystic nodules are stable. Isthmus: 0.3 mm. Cervical lymphadenopathy: None. US/US thyroid [id number] IMPRESSION: 1. New nodule in the LEFT mid thyroid with irregular margins and internal echo genic foci measuring 11 x 10 x 12 mm. Small amount of associated vascularity. R ecommend ultrasound-guided FNA for further evaluation. 2. Previously described hypoechoic nodule mid right thyroid today appears cyst ic and slightly smaller measuring 6.0 x 5.0 x 5.0 mm 3. Previously described large cyst inferior left thyroid has resolved in the i nterim. 4. Additional subcentimeter bilateral spongiform and cystic nodules are stable .
== END 2021-03-11 12:07 | disposition home or self-care (01) ==
LOC: RAD 12:17
PROVIDERS: PCP Nurse Practitioner Family; Visit Provider Internal Medicine Medical Oncology
DX: C50.919 Malignant neoplasm of unspecified site of unspecified female breast (principal); E03.9 Hypothyroidism, unspecified; E04.1 Nontoxic single thyroid nodule
CPT/HCPCS: 76536

== ENCOUNTER → 2021-03-12 07:24 | Outpatient (BNVA) | payer MEDICARE, MEDICAID, SELFPAY | PROVIDERS: PCP Nurse Practitioner Family; Visit Provider Nurse Practitioner | DX: F33.0 Major depressive disorder, recurrent, mild (principal); F41.1 Generalized anxiety disorder; F90.2 Attention-deficit hyperactivity disorder, combined type | CPT/HCPCS: 99214 ==

== ENCOUNTER 2021-05-03 07:07 | Outpatient (CLI) | payer MEDICARE, MEDICAID, SELFPAY ==
--- NOTE | 2021-05-03 | US_ITS ---
WS: [id number] ULTRASOUND-GUIDED LEFT THYROID NODULE FNA HISTORY: NODULE BIOPSY Procedure, risks, and complications were explained to the patient. Consent has been obtained. Comparison: 03/11/2021. The skin is cleansed with ChloraPrep and anesthetized with 1% buffered lidocaine. FNA performed with 25 gauge needles. fish technologist is present to fix slides. US/US biopsy thyroid [id number] IMPRESSION: Uncomplicated FNA of a LEFT mid thyroid nodule. Final pathology results pending .
== END 2021-05-03 07:08 | disposition home or self-care (01) ==
LOC: RAD 07:09
PROVIDERS: PCP Internal Medicine Medical Oncology; Visit Provider Otolaryngology
DX: E04.1 Nontoxic single thyroid nodule (principal)
CPT/HCPCS: 10005; 88173; 88305

== ENCOUNTER → 2021-05-24 07:14 | Outpatient (BNVA) | payer MEDICARE, MEDICAID, SELFPAY | PROVIDERS: PCP Internal Medicine Medical Oncology; Visit Provider Nurse Practitioner | DX: F33.0 Major depressive disorder, recurrent, mild (principal); F41.1 Generalized anxiety disorder; F90.2 Attention-deficit hyperactivity disorder, combined type | CPT/HCPCS: 81003; 99214 ==

== ENCOUNTER 2021-07-01 13:43 | Outpatient (CLI) | payer MEDICARE, MEDICAID, SELFPAY ==
[2021-07-01 14:14] LABS: Basophils % 0.4 %; Eosinophils # 0.2 10^3/uL (0.0-0.8); Eosinophils % 1.9 %; Hematocrit 39.6 % (37.0-47.0); Lymphocytes # 2.1 10^3/uL (0.8-4.8); Lymphocytes % 26.9 %; Mean Corpuscular HGB Conc 32.8 g/dL (30.0-36.0); Mean Corpuscular Hemoglobin 31.1 pg (28.0-34.0); Mean Corpuscular Volume 94.7 fl (81-99); Mean Platelet Volume 9.8 fL (7.4-10.4); Monocytes # 0.6 10^3/uL (0.2-0.9); Monocytes % 7.9 %; Neutrophils # 4.94 10^3/uL (1.8-7.7); Neutrophils % 62.6 %; Nucleated Red Blood Cells % 0 %; Platelet Count 202 10^3/cmm (130-400); Red Blood Count 4.18 10^6/uL (4.1-5.3); Red Cell Distribution Width 13.4 % (12.1-15.1); White Blood Count 7.9 10^3/uL (4.0-10.0)
[2021-07-01 14:39] LABS: Alanine Aminotransferase 14 U/L (0-33); Albumin Level 4.2 g/dL (3.5-5.2); Alkaline Phosphatase 105 IU/L (35-105); Anion Gap 13.6 (5-19); Aspartate Amino Transferase 13 U/L (0-32); Blood Urea Nitrogen 13 mg/dL (8-23); Calcium 8.7 mg/dL (8.5-10.5); Carbon Dioxide 26 mmol/L (22-29); Chloride 103 mmol/L (98-107); Globulin 2.7 g/dL (1.3-4.6); Glomerular Filtration Rate 84.8 mL/min (90-130); Glucose 85 mg/dL (65-115); Osmolality Calculated 287 mOsm/kg (285-295); Potassium 3.6 mmol/L (3.5-5.1); Sodium 139 mmol/L (136-145); Thyroid Stimulating Hormone 1.19 uIU/mL (0.27-4.20); Total Bilirubin 0.2 mg/dL (0.15-1.2); Total Protein 6.9 g/dL (6.6-8.7)
--- NOTE | 2021-07-05 16:30 | ONC FU_ITS ---
Dr. Cameron Patient Follow-Up Note Patient: Ana Chavez Unit #: [id number]: 1960 Dicatated By: Bright Cameron M.D.Date of Visit:Jul 01, 2021 Onc Med Follow-up/Prog Note Chief Complaint: Breast cancer. History of Present Illness: This is a 61 year-old woman with grade 2 invasive ductal carcinoma of the left breast, by clinical evaluation stage IIB (T2, N0, M0), ER/CA negative and HER-2/luz negative. She had presented with abnormal screening mammogram. The study from 12/09/2018 showed a new mass in the left upper outer quadrant measuring 2 x 1.5 cm. Additional evaluation was recommended. She returned for additional mammographic views and ultrasound on 03/01/2019. The mammogram showed an irregular spiculated mass in the left upper outer quadrant measuring 2.5 x 1.9 cm. It appeared to have increased on the November study. Ultrasound showed a solid hypoechoic mass measuring 2.6 x 1.8 x 2.2 cm. The findings were BI-RADS 5, highly suggestive of malignancy. Ultrasound directed biopsy of the left breast mass on 03/11/2019 showed grade 2 invasive ductal carcinoma. The best prognostic profile showed unfavorable KI 67 at 39%. The tumor was ER/CA negative, both < 1%. It was negative for overexpression of HER-2/luz, 1+ by IHC with amplification ratio by FISH of 1.0 with 1.9 HER-2 copies/cell. She was then seen at the [facility] in [place] for further management of the breast cancer. She was recommended to undergo neoadjuvant chemotherapy with dose dense Adriamycin/cyclophosphamide for 4 cycles followed by paclitaxel every 2 weeks for 4 cycles. She completed the 4th cycle of AC on 05/26/2019. She was seen here initially on 06/13/2019 because she desired to complete the remainder of her chemotherapy closer to home. Subsequent to that visit, I had arranged for placement of a PICC line, as she had very poor peripheral venous access and she did not want to have a Port-A-Cath placed. She had difficulty with the procedure, though, and she opted to stop it before it was completed. She eventually did get an IV placed into the right arm, and she began cycle 1 of paclitaxel on 06/27/2019. She tolerated it without acute toxicity, but her cycle 2 was delayed due to a respiratory infection, for which she was given antibiotic therapy. She was unable continue with cycle 2 of paclitaxel on 07/18/2019. It was administered via peripheral IV in the right arm at the full dosage. She had then presented to the emergency room at [facility] in [place] with pain and swelling in her right arm. Her venous Doppler study showed evidence of thrombophlebitis, but there was no actual deep vein thrombosis identified. As a precaution, I did recommend that she start anticoagulation with apixaban. I had seen her for a follow-up visit on 07/27/2019. I had recommended that she undergo placement of a venous access catheter prior to continuing her chemotherapy. She had returned to the [facility]. Her repeat mammogram there showed residual 1.7 cm spiculated mass at the 3 o'clock position of the left breast, decreased from the previous study. Ultrasound showed persistent mass in the left breast which had decreased in size to 1.8 x 1.4 x 1.0 cm compared to 2.5 x 2.0 x 1.4 cm on the pretreatment study. She opted to continue her treatment here. I had seen her for follow-up again on 09/05/2019. Given the interval from her cycle 2 treatment, I did not attempt any further chemotherapy. On 10/05/2019 she underwent left breast lumpectomy with axillary lymph node sampling. Pathology showed residual invasive ductal carcinoma measuring 1.2 cm in maximum diameter. The margins were free. There was no involvement in 4 lymph nodes. She was then referred to the radiation oncologist and she underwent radiation to the left breast. She completed treatment on 12/26/2019 to a total dose of 5256 cGy. She was then followed on observation/expectant management. Her other medical illnesses include hypertension, GERD, COPD, obstructive sleep apnea, hypothyroidism, degenerative arthritis, fibromyalgia, and anxiety/depression. She has had only minimal tobacco or alcohol use in the past. INTERIM HISTORY: Her surveillance diagnostic mammogram on 07/27/2020 showed postoperative changes associated with the upper outer left breast lumpectomy. A large ovoid density at the surgical cavity measured 3.8 x 3.7 cm. It previously measured 12 mm. Ultrasound showed complex cystic lesion with internal septations measuring 3.7 x 3.6 x 2.8 cm, possibly representing postoperative seroma, but it was felt to be indeterminate, and recurrence was not entirely excluded. On 08/16/2020 she underwent fine-needle aspiration with ultrasound-guided core needle biopsy of the complex cystic and solid mass by Dr. Denisse Gurroal. Pathology on the core needle biopsy showed benign adipose tissue with serosanguineous coagulum, consistent with seroma. With that finding, she was recommended to have a 6-month follow-up diagnostic left unilateral mammogram and to continue with bilateral yearly diagnostic mammography. Her repeat thyroid ultrasound on 03/11/2021 showed a new nodule in the left mid thyroid with irregular margins measuring 11 x 10 x 12 mm. Biopsy was recommended. Ultrasound directed FNA biopsy of the left mid thyroid nodule on 05/03/2021 showed benign process with no evidence to suggest a neoplastic process. She is seen for a follow-up visit. She has been feeling okay, though her energy has not been very good. She is able to do some work. ECOG score is 1. She has good appetite. She has not had fever. She occasionally has hot flashes/sweating. She currently is on antibiotic therapy with Augmentin for sinus infection. She has not had sore mouth or throat. She does not complain of cough. She says her breathing is not very good. She has intermittent shooting pains in the left lateral chest wall. She has had a little nausea and she has had ongoing problems with constipation. Bladder function has been okay. She complains that her back gets sore and she has persistent neuropathy pain in her hands and feet. She has chronic anxiety/depression. She is on treatment with Wellbutrin, Prozac, and Seroquel. Medications: Adderall 1 Tablet (of 20 mg) Oral daily, Aspirin 81 1 (81 mg) Tablet, enteric coated Oral daily, Ativan 1 Tablet (of 1 mg) Tablet Oral at bedtime PRN, FLUoxetine HCl 1 Tablet (of 80 mg) Oral daily, Lisinopril 1 Tablet (of 40 mg) Oral daily, Lyrica 1 Capsule (of 75 mg) Oral daily, Metoprolol Succinate ER 1 Tablet (of 25 mg) Tablet SR 24 HR Oral daily, Nucynta (50 mg) Tablet Oral Take as Directed, Omeprazole 1 Capsule (of 40 mg) Capsule Delayed Release Oral daily PRN, Prevagen 1 Capsule Oral daily, SEROquel 1 Tablet Oral daily, Wellbutrin SR 1 Tablet (of 150 mg) Tablet SR 12 HR Oral daily Allergies: Amoxicillin and Eliquis. Vital Signs: Weight is 219 pounds. Blood pressure 161/81, pulse 85, respirations 20, temp 96.7 degrees, oxygen saturation 99%. Physical Examination: Constitutional - She looks pretty good generally, Eyes - Sclerae nonicteric. Conjunctivae clear, ENMT - No lesions noted in the oral cavity, Hematologic/Lymphatic - No cervical, clavicular, or axillary adenopathy, Respiratory - Lungs are clear with good air movement bilaterally, Cardiovascular - Heart rhythm is regular. There is no murmur, gallop, or rub noted, Abdomen - Soft. Liver and spleen are not enlarged. There is no abdominal mass or ascites noted and there is no inguinal adenopathy, Extremities - No edema, Neurologic - No focal neurologic deficits noted. Lab/Imaging: Test performed on Jul 01, 2021 13:54 Sodium 139 mmol/L TSH 1.19 uIU/mL Potassium 3.6 mmol/L Chloride 103 mmol/L CO2 26 mmol/L Anion Gap 13.6 BUN 13 mg/dL Creatinine 0.7 mg/dL Cr Clearance (Est) 130.2000 mL/min eGFR 84.8 mL/min Glucose 85 mg/dL Osmolality - Calculated 287 mOsm/kg Calcium 8.7 mg/dL Protein, Total 6.9 g/dL Albumin 4.2 g/dL Globulin 2.7 g/dL Bilirubin, Total 0.2 mg/dL ALT (SGPT) 14 U/L AST (SGOT) 13 U/L Alkaline Phosphatase 105 IU/L WBC 7.9 10 3/uL RBC 4.18 10 6/uL HGB 13.0 g/dL HCT 39.6 % MCV 94.7 fl MCH 31.1 pg MCHC 32.8 g/dL RDW 13.4 % Platelet Count 202 10 3/cmm MPV 9.8 fL Neutrophils 4.94 10 3/uL Lymphocytes 2.1 10 3/uL Monocytes 0.6 10 3/uL Eosinophils 0.2 10 3/uL Basophils 0.0 10 3/uL Neutrophil % 62.6 % Lymphocyte % 26.9 % Monocyte % 7.9 % Eosinophil % 1.9 % Basophils % 0.4 % NRBC % 0 % Problem List: 1. Grade 2 invasive ductal carcinoma of the left breast, triple negative. By clinical evaluation her disease was stage IIB (T2, N0, M0). 2. Hypertension. 3. Hypothyroidism. 4. GERD. 5. Degenerative arthritis/degenerative disease of the spine. 6. Fibromyalgia. 7. COPD. 8. Obstructive sleep apnea. 9. Anxiety/depression. Problems Addressed with this Encounter and Plan: 1. Patient with grade 2 invasive ductal carcinoma of the left breast, triple negative. By clinical evaluation her disease was stage IIB (T2, N0, M0). She was given neoadjuvant chemotherapy with dose dense AC/T. She completed her 4 cycles Adriamycin/cyclophosphamide from 04/06/2019 through 05/26/2019. Cycle 4 was complicated by mucositis, severe enough to require hospitalization. She also was anemic and required PRBC transfusion. Her further treatment was then delayed due to issues with venous access. She eventually began cycle 1 of paclitaxel via a PICC line on 06/27/2019. Cycle 2 was delayed and administered peripherally on 07/18/2019. Due to problems with her venous access, no further chemotherapy was attempted. On 10/05/2019 she underwent left breast lumpectomy with axillary lymph node sampling. Pathology showed residual invasive ductal carcinoma measuring 1.2 cm in maximum diameter. The margins were free. There was no involvement in 4 lymph nodes. Pathologic staging was ypT1c, ypN0. She was then underwent radiation to the left breast. She completed treatment on 12/26/2019 to a total dose of 5256 cGy. Her surveillance mammogram/ultrasound on 07/27/2020 showed complex cystic lesion in the area of the lumpectomy in the lateral aspect of the left breast, possibly due to seroma, but the appearance was indeterminate and recurrence was not entirely excluded. She then underwent ultrasound-guided needle aspiration and core needle biopsy of the cystic mass, and pathology was consistent with seroma. In the absence of any evidence of recurrence of the breast cancer, she continues observation/expectant management. Her mammograms are due to be repeated in July, and those will be scheduled. I will see her again in 6 months. 2. She has degenerative arthritis/degenerative disease of the spine and fibromyalgia with chronic pain. She also has neuropathy pain. She continues symptomatic management with Nucynta 50 mg 4 times daily. Signed By: Bright Cameron M.D. <<Signature on File>>
== END 2021-07-01 13:44 | disposition home or self-care (01) ==
LOC: ONCMED 13:45
PROVIDERS: PCP Nurse Practitioner Family; Visit Provider Internal Medicine Medical Oncology
DX: Z08 Encounter for follow-up examination after completed treatment for malignant neoplasm (principal); Z85.3 Personal history of malignant neoplasm of breast; Z90.12 Acquired absence of left breast and nipple; I10 Essential (primary) hypertension; E03.9 Hypothyroidism, unspecified; K21.9 Gastro-esophageal reflux disease without esophagitis; G31.89 Other specified degenerative diseases of nervous system; M79.7 Fibromyalgia; J44.9 Chronic obstructive pulmonary disease, unspecified; G47.33 Obstructive sleep apnea (adult) (pediatric); F41.9 Anxiety disorder, unspecified; F32.9 Major depressive disorder, single episode, unspecified; Z79.899 Other long term (current) drug therapy; Z92.21 Personal history of antineoplastic chemotherapy; Z92.3 Personal history of irradiation
CPT/HCPCS: 36415; 80053; 84443; 85025; 99214

== ENCOUNTER 2021-07-24 10:07 | Outpatient (CLI) | payer MEDICARE, MEDICAID, SELFPAY ==
--- NOTE | 2021-07-24 11:00 | US_ITS ---
WS: [id number] TRANSABDOMINAL PELVIC AND TRANSVAGINAL PELVIC ULTRASOUND HISTORY: RIGHT lower quadrant pain. COMPARISON: None available. Uterus: 7.4 cm x 3.3 cm x 2.7 cm. Normal size anteverted uterus. Uterus is very difficult to visualiz e on both transabdominal and transvaginal imaging. Patient was unable to tolerate the transvaginal im aging. Small cyst is noted in the cervix consistent with a nabothian cysts. Endometrium: Not visualized. Neither ovary is visualized. No adnexal masses but this is a very limited evaluation of the pelvic st ructures. US/US pelvic with transvaginal IMPRESSION: 1. Patient was unable to tolerate pelvic imaging. 2. Nondiagnostic evaluation of the uterus and adnexa.
== END 2021-07-24 10:08 | disposition home or self-care (01) ==
LOC: RAD 10:10
PROVIDERS: PCP Nurse Practitioner Family; Visit Provider Nurse Practitioner Family
DX: R10.31 Right lower quadrant pain (principal); R10.2 Pelvic and perineal pain
CPT/HCPCS: 76830; 76856

== ENCOUNTER → 2021-08-09 07:19 | Outpatient (BNVA) | payer MEDICARE, MEDICAID, SELFPAY | PROVIDERS: PCP Nurse Practitioner Family; Visit Provider Nurse Practitioner | DX: F33.0 Major depressive disorder, recurrent, mild (principal); F41.1 Generalized anxiety disorder; F90.2 Attention-deficit hyperactivity disorder, combined type | CPT/HCPCS: 99214 ==

== ENCOUNTER → 2021-08-15 12:19 | Outpatient (BNVA) | payer MEDICARE, MEDICAID, SELFPAY | PROVIDERS: PCP Nurse Practitioner Family; Visit Provider Nurse Practitioner Family | DX: J06.9 Acute upper respiratory infection, unspecified (principal) | CPT/HCPCS: 87635 ==

== ENCOUNTER 2021-09-04 08:18 | Outpatient (CLI) | payer MEDICARE, MEDICAID, SELFPAY ==
--- NOTE | 2021-09-04 08:29 | MM_ITS ---
WS: [id number] BILATERAL DIGITAL DIAGNOSTIC MAMMOGRAM MAMMOGRAPHY WITH CAD CLINICAL INFORMATION: 6 MO F/U HX OF BREAST CA COMPARISON: 01/25/2021 and 07/27/2020 TECHNIQUE: Bilateral CC, MLO, and ML views. FINDINGS: Scattered fibroglandular densities bilaterally. RIGHT breast is unremarkable and stable in appearance . Dense parenchymal mass in the surgical cavity upper outer quadrant LEFT breast is similar in appearan ce compared to the prior examination. Overall this is slightly decreased in size and slightly less de nse today. Ultrasound evaluation is pending. Punctate and lucent centered calcifications. Surgical cl ips upper outer quadrant. Vascular calcification. ULTRASOUND BREAST BILATERAL TECHNIQUE: Ultrasound bilateral breast focused area of concern. CLINICAL INFORMATION: 6 MO F/U HX OF BREAST CA COMPARISON: 01/25/2021 and 07/27/2020 FINDINGS: RIGHT BREAST: Ultrasound RIGHT breast RIGHT axilla. There is a slightly prominent lymph node in the R IGHT axilla measuring 1.6 x 1.7 x 1.0 cm in the area of palpable concern. This is unchanged in appear ance compared to January 25, 2021. No other suspicious abnormality RIGHT breast. LEFT BREAST: Ultrasound LEFT breast at the axillary tail in the area of prior lumpectomy. Again seen is the complex fluid collection which is decreased in size today measuring 3.4 x 3.1 x 1.9 cm compare d to previous measuring 3.7 x 3.6 x 2.8 cm. Again this is a complex cystic appearance with internal s eptations. Considering stability this most likely represents a complex postoperative seroma. Recommen d continued surveillance with 6 month follow-up. MM/[place] [id number] IMPRESSION: BI-RADS: 3-Probably Benign FOLLOW UP: 6 Month Follow-up Recommend 6 month follow-up LEFT breast diagnostic mammography and ultrasound.
== END 2021-09-04 08:19 | disposition home or self-care (01) ==
LOC: RADSHAW 08:26
PROVIDERS: PCP Nurse Practitioner Family; Visit Provider Internal Medicine Medical Oncology
DX: Z85.3 Personal history of malignant neoplasm of breast (principal)
CPT/HCPCS: 76642; 77066

== ENCOUNTER → 2021-10-11 07:28 | Outpatient (BNVA) | payer MEDICARE, MEDICAID, SELFPAY | PROVIDERS: PCP Nurse Practitioner Family; Visit Provider Nurse Practitioner | DX: F41.1 Generalized anxiety disorder (principal); F33.0 Major depressive disorder, recurrent, mild; F90.2 Attention-deficit hyperactivity disorder, combined type | CPT/HCPCS: 99214 ==

== ENCOUNTER → 2021-11-07 09:13 | Outpatient (BNVA) | payer MEDICARE, MEDICAID, SELFPAY | PROVIDERS: PCP Family Medicine; Visit Provider Nurse Practitioner | DX: F41.1 Generalized anxiety disorder (principal); F33.0 Major depressive disorder, recurrent, mild; F90.2 Attention-deficit hyperactivity disorder, combined type | CPT/HCPCS: 99214 ==

== ENCOUNTER → 2022-01-03 06:25 | Outpatient (BNVA) | payer MEDICARE, MEDICAID, SELFPAY | PROVIDERS: PCP Family Medicine; Visit Provider Nurse Practitioner | DX: F41.1 Generalized anxiety disorder (principal); F33.0 Major depressive disorder, recurrent, mild; F90.2 Attention-deficit hyperactivity disorder, combined type | CPT/HCPCS: 99214 ==

== ENCOUNTER 2022-01-09 19:14 | Inpatient (IN) | payer MEDICARE, MEDICAID, SELFPAY ==
[2022-01-09 19:25] VITALS: BP 180/75; PULSE 61; RESP 18; TEMP 36.8; O2SAT 100; BMI 29.5
--- NOTE | 2022-01-09 19:29 | ECG_ITS ---
[facility] Test Date: 2022-01-09 Pat Name: Ana Chavez Department: Room: Gender: Female Director Of Procurement: : 1960 Requested By: Bartolo Camara Order Number: [id number] Jessica MD: Altaf Winkler M.D. Measurements Intervals [place] Rate: 59 P: 54 KS: 133 QRS: -18 QRSD: 95 T: 32 QT: 427 QTc: 424 Interpretive Statements SINUS BRADYCARDIA ST DEVIATION AND MODERATE T-WAVE ABNORMALITY, CONSIDER LATERAL ISCHEMIA [-0.1+ mV T-WAVE IN I/aVL/V5/V6] No previous ECG available for comparison Electronically Signed On 01-09-2022 22:28:55 CDT by Altaf Winkler M.D. [email or web address] medical [id number]
--- NOTE | 2022-01-09 19:29 | XRR_ITS ---
PROCEDURE INFORMATION: Exam: XR Chest Exam date and time: 01/09/2022 7:54 PM Age: 61 years old Clinical indication: Other: AMS; Additional info: Si TECHNIQUE: Imaging protocol: Radiologic exam of the chest. Views: 1 view. COMPARISON: CR XR KUB [id number] 03/22/2020 4:34 PM FINDINGS: Lungs: Unremarkable. No consolidation. Pleural spaces: Unremarkable. No pleural effusion. No pneumothorax. Heart/Mediastinum: Unremarkable. No cardiomegaly. Bones/joints: Unremarkable. XR/XR chest 1V portable [id number] IMPRESSION: No acute findings.
--- NOTE | 2022-01-09 19:30 | W.ED.PSYCHS ---
HPI - Psych General: Chief Complaint: Psychiatric Symptoms Stated Complaint: SI Time Seen by Provider: 01/09/22 19:26 Source: patient and EMS Mode of arrival: EMS Limitations: no limitations History of Present Illness: 61-year-old female who states that over the last 4 to 5 days she has became increasingly depressed. Patient here is a very flat affect she is tearful during the whole time and states she just no longer wants to live. States she wants to be knocked out and just to . She states she been having these thoughts over the last 4 to 5 days family called EMS they were concerned that she may have kill herself. She has no other complaints at this time. Associated symptoms: Reports suicidal ideation Review of Systems Const: Denies: fever(s), chills, body aches or change in appetite Eyes: Denies: blurry vision or eye discomfort ENMT: Denies: throat pain or dental pain Card: Denies: chest pain Resp: Denies: dyspnea GI: Denies: abdominal pain, nausea, vomiting or diarrhea : Denies: dysuria Musc: Denies: neck pain or back pain Skin/Breast: Denies: rash Neuro: Denies: headache(s) Psych: Reports: suicidal ideation Fred/Lymph: Denies: easy bruising All/Imm: Denies: urticaria PFSH ED PFSH: Medical History Acute bacterial sinusitis Acute bacterial sinusitis Attention-deficit hyperactivity disorder, combined type Breast cancer, left Chronic low back pain Chronic neck and back pain Depression with anxiety Patient has worsening anxiety and depression over the past several months. She was diagnosed with breast cancer, is taking chemo treatments, and her mother recently. She has been titrating doses of Fluoxetine and is currently taking 60mg daily, but has been taking 40 mg in the morning and 20mg in the evening. Environmental and seasonal allergies Essential hypertension, benign Patient is currently controlled with blood pressure medications Metoprolol, Lisinopril and HCTZ. Exposure to COVID-19 virus Fibromyalgia Flu-like symptoms Generalized anxiety disorder Herpes virus infection of oral mucosa Hypertension screen Medication management Memory changes Nausea Neuropathy Pelvic pain Sinusitis Urinary tract infection UTI (urinary tract infection), bacterial Vaginal yeast infection Vitamin D deficiency Surgical History History of History of carpal tunnel release Right Status post left breast lumpectomy (~09/2019) With sentinel lymph node biopsy, 4 lymph nodes negative Family History Brother Bleeding disorder Daughter Bleeding disorder Denies family history of Anesthesia complication Social History Smoking and tobacco status: never smoked Alcohol intake: never Household members: spouse Marital status: Current occupational status: disabled Current occupation: retired/disabled History of recent travel: No Physical Exam Const: COMMON NORMALS: patient oriented x3 and healthy appearing OTHER: tearful during exam HENMT: COMMON NORMALS: normocephalic and atraumatic HEAD & SCALP: normocephalic and atraumatic Eye: COMMON NORMALS: Equal, round and reactive pupils present and EOMs intact bilaterally PUPIL: Yes Equal, round and reactive pupils present Neck/C-Spine: COMMON NORMALS: full ROM and supple Chest: COMMONS NORMALS: normal inspection of the chest and normal palpation of entire chest wall Resp: COMMON NORMALS: normal respiratory effort, No retractions, No use of accessory muscles and clear to auscultation bilaterally AUSCULTATION: clear to auscultation bilaterally Cardio: COMMON NORMALS: regular rate, regular rhythm and No murmurs present (Cardio) RATE: regular rate RHYTHM: regular rhythm GI: COMMON NORMALS: Normal to inspection, nondistended, normoactive bowel sounds present, Soft to palpation, non-tender and no masses PALPATION: Yes Soft to palpation Extremity: COMMON NORMALS: normal to inspection and full ROM Neuro: COMMON NORMALS: patient oriented x3, moves all extremities and no focal motor deficits Psych: MOOD & AFFECT: Yes depressed mood THOUGHT CONTENT: Yes Suicidality present Skin: COMMON NORMALS: no rashes or lesions noted and no wounds GENERAL SKIN EXAM: no rashes or lesions noted Course Vital Signs: Vital signs: Vital Signs Temperature 98.2 F 01/09/22 19:25 Pulse Rate 61 01/09/22 19:25 Respiratory Rate 18 01/09/22 19:25 Blood Pressure 180/75 01/09/22 19:25 Pulse Oximetry 100 01/09/22 19:25 MDM - Psych Medical Decision Making Patient presents here with suicidal ideations patient is medically cleared placed under 96-hour hold I did speak to psychiatry Dr. North and will admit to the psych jimenez. Lab Data : 01/09/22 19:30 01/09/22 19: Laboratory Results WBC 7.6 10^3/uL (4.0-10.0) 01/09/22 19: RBC 4.27 10^6/uL (4.1-5.3) 01/09/22 19: Hgb 13.0 g/dL (11.5-15.3) 01/09/22 19: Hct 38.0 % (37.0-47.0) 01/09/22: MCV 89.0 fl (81-99) 01/09/22: MCH 30.4 pg (28.0-34.0) 01/09/22 19: MCHC 34.2 g/dL (30.0-36.0) 01/09/22: RDW 12.8 % (12.1-15.1) 01/09/22: Plt Count 187 10^3/cmm (130-400) 01/09/22: MPV 10.5 fL (7.4-10.4) H 01/09/22: Neut % (Auto) 65.6 % 01/09/22: Lymph % (Auto) 22.9 % 01/09/22: Castro % (Auto) 9.5 % 01/09/22: Eos % (Auto) 1.2 % 01/09/22: Baso % (Auto) 0.5 % 01/09/22: Neut # (Auto) 4.97 10^3/uL (1.8-7.7) 01/09/22: Lymph # (Auto) 1.7 10^3/uL (0.8-4.8) 01/09/22: Castro # (Auto) 0.7 10^3/uL (0.2-0.9) 01/09/22 19: Eos # (Auto) 0.1 10^3/uL (0.0-0.8) 01/09/22: Baso # (Auto) 0.0 10^3/uL (0.0-0.1) 01/09/22 19:30 Nucleated RBC % (auto) 0 % 01/09/22 19:30 Nucleated RBCs # 0.0 /100WBC 01/09/22 19:30 Sodium 141 mmol/L (136-145) 01/09/22 19:30 Chloride 102 mmol/L (98-107) 01/09/22 19:30 Carbon Dioxide 26 mmol/L (22-29) 01/09/22 19:30 Anion Gap 15.7 (5-19) 01/09/22 19:30 BUN 14 mg/dL (8-23) 01/09/22 19:30 Creatinine 0.7 mg/dL (0.5-0.9) 01/09/22 19:30 Glucose 94 mg/dL (65-115) 01/09/22 19:30 Calculated Osmolality 292 mOsm/kg (285-295) 01/09/22 19:30 Calcium 9.2 mg/dL (8.5-10.5) 01/09/22 19:30 Total Bilirubin 0.5 mg/dL (0.15-1.2) 01/09/22 19:30 AST 13 U/L (0-32) 01/09/22 19:30 ALT 14 U/L (0-33) 01/09/22 19:30 Alkaline Phosphatase 99 IU/L (35-105) 01/09/22 19:30 Albumin 4.1 g/dL (3.5-5.2) 01/09/22 19:30 Globulin 2.4 g/dL (1.3-4.6) 01/09/22 19:30 Discharge Plan Discharge Patient Disposition: Admitted As Inpatient Clinical Impression: Suicidal ideation Condition: Stable Prescriptions: No Action acyclovir 5 % cream 1 applic TOPICAL DAILY 0RF lidocaine HCl [Xylocaine] 10 mg/mL (1 %) solution 1 ml IM ONCE Qty: 1 0RF ceftriaxone 1 gram recon soln 1 g IM ONCE Qty: 1 0RF dexamethasone sodium phosphate 10 mg/mL solution 10 mg IM ONCE Qty: 1 0RF ondansetron HCl [Zofran] 4 mg tablet 4 mg PO Q8H PRN (Reason: nausea and vomiting) 7 Days Qty: 21 0RF quetiapine [Seroquel] 25 mg tablet 25 mg PO .HS Qty: 30 2RF bupropion HCl [Wellbutrin XL] 150 mg tablet extended release 24 hr 150 mg PO QAM Qty: 30 2RF fluoxetine [Prozac] 40 mg capsule 80 mg PO DAILY Qty: 60 2RF dextroamphetamine-amphetamine [Adderall XR] 25 mg capsule,extended release 24hr 25 mg PO DAILY 30 Days Qty: 30 0RF dextroamphetamine-amphetamine [Adderall XR] 25 mg capsule,extended release 24hr 25 mg PO DAILY 30 Days Qty: 30 0RF furosemide 20 mg tablet 20 mg PO QAM 15 Days Qty: 15 0RF diclofenac sodium 1 % gel See Rx Instructions .ROUTE .COMPLEX Qty: 100 2RF Dose Instruction: USE 4 GRAMS TOPICALLY FOUR TIMES DAILY FOR 30 DAYS; APPLY TO SINGLE KNEE, ANKLE, FOOT (FOOT INCLUDES SOLE/TOES/TOP OF FOOT) Rx Instructions: USE 4 GRAMS TOPICALLY FOUR TIMES DAILY FOR 30 DAYS; APPLY TO SINGLE KNEE, ANKLE, FOOT (FOOT INCLUDES SOLE/TOES/TOP OF FOOT) valacyclovir 1 gram tablet See Rx Instructions .ROUTE .COMPLEX Qty: 30 2RF Dose Instruction: TAKE ONE TABLET BY MOUTH DAILY; TAKE ONE TABLET DAILY FOR 5 DAYS WITH EACH OUTBREAK Rx Instructions: TAKE ONE TABLET BY MOUTH DAILY; TAKE ONE TABLET DAILY FOR 5 DAYS WITH EACH OUTBREAK 340B lisinopril 40 mg tablet See Rx Instructions .ROUTE .COMPLEX Qty: 90 1RF Dose Instruction: TAKE 1 TABLET BY MOUTH DAILY Rx Instructions: TAKE 1 TABLET BY MOUTH DAILY metoprolol succinate 25 mg tablet extended release 24 hr See Rx Instructions .ROUTE .COMPLEX Qty: 90 1RF Dose Instruction: TAKE 1 TABLET BY MOUTH DAILY Rx Instructions: TAKE 1 TABLET BY MOUTH DAILY omeprazole 40 mg capsule,delayed release(DR/EC) See Rx Instructions .ROUTE .COMPLEX Qty: 90 1RF Dose Instruction: TAKE 1 CAPSULE BY MOUTH EVERY DAY Rx Instructions: TAKE 1 CAPSULE BY MOUTH EVERY DAY mometasone 50 mcg/actuation spray,non-aerosol See Rx Instructions .ROUTE .COMPLEX Qty: 17 2RF Dose Instruction: administer 2 SPRAYS into EACH nostril ONCE DAILY Rx Instructions: administer 2 SPRAYS into EACH nostril ONCE DAILY Nucynta 50 mg tablet 50 mg PO QID PRN (Reason: pain) 10 Days Qty: 40 0RF lorazepam 1 mg tablet 1 mg PO BID PRN (Reason: anxiety) Qty: 60 2RF Nucynta 50 mg tablet 50 mg PO QID PRN (Reason: pain) 30 Days Qty: 120 0RF Referrals: Theo Fonseca MD [Primary Care Provider] - Coding Level of Care Code ED Agency Service Coordinator for Chg Fwd Exam Comprehensive
[2022-01-09 20:02] LABS: Basophils % 0.5 %; Eosinophils # 0.1 10^3/uL (0.0-0.8); Eosinophils % 1.2 %; Lymphocytes # 1.7 10^3/uL (0.8-4.8); Lymphocytes % 22.9 %; Mean Corpuscular HGB Conc 34.2 g/dL (30.0-36.0); Mean Corpuscular Hemoglobin 30.4 pg (28.0-34.0); Mean Platelet Volume 10.5 fL (7.4-10.4); Monocytes # 0.7 10^3/uL (0.2-0.9); Monocytes % 9.5 %; Neutrophils # 4.97 10^3/uL (1.8-7.7); Neutrophils % 65.6 %; Nucleated Red Blood Cells % 0 %; Platelet Count 187 10^3/cmm (130-400); Red Blood Count 4.27 10^6/uL (4.1-5.3); Red Cell Distribution Width 12.8 % (12.1-15.1); White Blood Count 7.6 10^3/uL (4.0-10.0)
[2022-01-09 20:23] LABS: Alanine Aminotransferase 14 U/L (0-33); Albumin Level 4.1 g/dL (3.5-5.2); Alkaline Phosphatase 99 IU/L (35-105); Anion Gap 15.7 (5-19); Aspartate Amino Transferase 13 U/L (0-32); Blood Urea Nitrogen 14 mg/dL (8-23); Calcium 9.2 mg/dL (8.5-10.5); Carbon Dioxide 26 mmol/L (22-29); Chloride 102 mmol/L (98-107); Globulin 2.4 g/dL (1.3-4.6); Glomerular Filtration Rate 84.8 mL/min (90-130); Glucose 94 mg/dL (65-115); Osmolality Calculated 292 mOsm/kg (285-295); Sodium 141 mmol/L (136-145); Total Bilirubin 0.5 mg/dL (0.15-1.2); Total Protein 6.5 g/dL (6.6-8.7)
[2022-01-09 20:43] LABS: Acetaminophen < 5.0 ug/mL (10-30); Alcohol Level < 10 mg/dL (0-10); Salicylate < 0.3 mg/dL (3-10)
[2022-01-09 20:44] LABS: Potassium 2.7 mmol/L (3.5-5.1)
[2022-01-09] MEDS: potassium chloride ER 20 mEq Tablet 80 MEQ PO (22:26)
[2022-01-09] MEDS: LORazepam 2 mg/mL INJ 1 mL 1 MG IM (22:40)
[2022-01-09 22:50] VITALS: BP 137/74; PULSE 74; RESP 16; TEMP 37.3; O2SAT 98
[2022-01-10] MEDS: trazodone 50 mg Tablet PO (00:08)
--- NOTE | 2022-01-10 00:19 | PC.NURSE ---
AFTER ADMISSION PT REQUEST MEDICATION TO HELP HER SLEEP. TRAZADONE GIVEN.
[2022-01-10 06:00] VITALS: BP 124/77; PULSE 63; RESP 15; TEMP 36.6; O2SAT 97
[2022-01-10] MEDS: buPROPion XL (24 HR) 150 mg Tablet PO (06:01)
[2022-01-10] MEDS: fluoxetine 20 mg Capsule 80 MG PO (10:16)
[2022-01-10] MEDS: lisinopril 20 mg Tablet 40 MG PO (10:17)
[2022-01-10] MEDS: metoprolol succinate ER (24 HR) 25 mg Tablet PO (10:17)
[2022-01-10] MEDS: FUROsemide 20 mg Tablet PO (10:17)
[2022-01-10] MEDS: OLANZapine 5 mg ODT PO (10:17)
[2022-01-10] MEDS: pantoprazole DR 40 mg Tablet PO (10:17)
[2022-01-10] MEDS: acetaminophen 325 mg Tablet 650 MG PO (10:28)
--- NOTE | 2022-01-10 13:53 | P.NPUHP_ITS ---
Providers/Chief Complaint Admitting Physician: García North MD Primary Care Provider: Theo Fonseca MD Chief Complaint: SI HPI NPU History of Present Illness Ana Chavez is a 61 year old female who presented to the emergency department with the following report: Chief Complaint: Psychiatric Symptoms Stated Complaint: SI Time Seen by Provider: 01/09/22 19:26 Source: patient and EMS Mode of arrival: EMS Limitations: no limitations History of Present Illness: 61-year-old female who states that over the last 4 to 5 days she has became increasingly depressed. Patient here is a very flat affect she is tearful during the whole time and states she just no longer wants to live. States she wants to be knocked out and just to . She states she be en having these thoughts over the last 4 to 5 days family called EMS they were concerned that she may have kill herself. She has no other complaints at this time. Associated symptoms: Reports suicidal ideation She was admitted to the neuropsychiatric unit for definitive treatment of those issues. The patient presents today to hospital reporting she had a breakdown. She denies any known allergies to medications and is currently taking Adderall XR 25mg po q am, Wellbutrin 150 mg po q daily, Prozac 40 mg 2 capsule po q am, and Seroquel 25 mg po q pm. She reports she had found out approximately 2 days ago that her of 40 had been having an affair. She states that she had discovered this information from her grandchildren and reports that she was embarrassed. She reports she confronted her and he had laughed at her. She reports that is possible she made a suicidal statement but was unable to recall during the interview. She reports that she had ?flipped out and tore up my house with a knife? with reported significant verbal outbursts and destruction of property. She denies any inpatient psychiatric hospitalizations and reports receiving outpatient treatment for over 40 years, the most recent of which was through [facility] outpatient clinic under a nurse practitioner Lilibeth Gasca. She reports she was previously diagnosed with generalized anxiety disorder, major depressive disorder and attention deficit hyperactivity disorder. She has been on a number of medication in the past including Concerta, Zoloft, Effexor, and Paxil. She denies any tobacco, alcohol, marijuana or any other illicit drug use. She denies any current suicidal or homicidal ideation. She endorses struggling with depression for close to 40 years but denies feelings of helplessness or hopelessness. She reports that prior to this incident, she had been managing her mood well and denies any significant mood swings. She denies any history of santos and denies experiencing any current or p ast episodes of psychosis. She reports having chronic problems with worrying consistent with symptoms of anxiety. She endorses her sleep has been well managed on her current medications and denies any issues or need for changes. She endorses having challenges with concentration and focusing during school. The patient has a significant history of psychiatric treatment for attention deficit hyperactivity disorder, major depressive disorder and generalized anxiety disorder which appear to have been partially treated in the past. She also has significant pain issues which could be complicating her current mood. Psychiatric History: As above. Substance Abuse History: As above Family History: She reports mental health issues on her mother?s side of the family with adhd in her mother and her brother with anxiety and depression. She reports her daughter problems with addiction but no other addiction issues reported. Developmental History: She denies any issues with her or , learned to walk and talk and met her developmental milestones on time, and denies any need for speech therapy, learning support, emotional support or special education classes. Psychosocial History: Her parents were together when she was born and remained together until her mother around 4 years ago.The highest grade she achieved was 11th grade She endorses being heterosexual with her longest relationship being her current marriage of over 40 years. She is currently, has 2 daughters, has never been in the and endorses being quaker. 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 Legal History: There were no reports of legal issues made throughout the interview. Medical History: She has a history of breast cancer for which she received chemotherapy and radiation. She has a history of a left lumpectomy in 2019. She had a and has a history of hypertension and chronic pain issues. Meds NPU Home Medications Medication Instructions Recorded Confirmed Last Taken Type tapentadol 50 mg tablet (Nucynta) 50 mg PO QID PRN 10 Days #40 tab 12/18/21 01/10/22 Unknown Rx lorazepam 1 mg tablet 1 mg PO BID PRN #60 tab 12/31/21 01/10/22 Unknown Rx bupropion HCl 150 mg 24 hr tablet, 150 mg PO QAM #30 tab 01/03/22 01/09/22 Un known Rx extended release (Wellbutrin XL) fluoxetine 40 mg capsule (Prozac) 80 mg PO DAILY #60 cap 01/03/22 01/09/22 Unknown Rx dextroamphetamine-amphetamine ER 25 mg PO DAILY 30 Days #30 cap 22 01/09/22 Unknown Rx 25 mg 24hr capsule,extend release (Adderall XR) dextroamphetamine-amphetamine ER 25 mg PO DAILY 30 Days #30 cap 01/06/22 01/09/22 Unknown Rx 25 mg 24hr capsule,extend release (Adderall XR) furosemide 20 mg tablet 20 mg PO DAILY 01/10/22 01/09/22 Unknown History lisinopril 40 mg tablet 40 mg PO DAILY 01/10/22 01/09/22 Unknown History metoprolol succinate 25 mg 25 mg PO DAILY 01/10/22 01/09/22 Unknown History tablet,extended release 24 hr mometasone 50 mcg/actuation nasal 2 spray INTRANASAL DAILY 01/10/22 01/09/22 Unknown History spray omeprazole 40 mg capsule,delayed 40 mg PO DAILY 01/10/22 01/10/22 Unknown History release quetiapine 25 mg tablet (Seroquel) 25 mg PO BEDTIME 01/10/22 01/10/22 Unknown History Allergies Allergy/AdvReac Type Severity Reaction Status Date / Time apixaban [From Eliquis] Allergy Intermediate rash Verified 01/03/22 09:33 clindamycin Allergy Intermediate Nausea and Verified 01/03/22 09:33 vomiting amoxicillin AdvReac Intermediate yeast Verified 01/03/22 09:33 infection cephalexin [From Keflex] AdvReac Intermediate Bad yeast Verified 01/03/22 09:33 infection PFSH NPU PFSH: Medical History Acute bacterial sinusitis Acute bacterial sinusitis Attention-deficit hyperactivity disorder, combined type Breast cancer, left Chronic low back pain Chronic neck and back pain Depression with anxiety Patient has worsening anxiety and depression over the past several months. She was diagnosed with breast cancer, is taking chemo treatments, and her mother recently. She has been titrating doses of Fluoxetine and is currently taking 60mg daily, but has been taking 40 mg in the morning and 20mg in the evening. Environmental and seasonal allergies Essential hypertension, benign Patient is currently controlled with blood pressure medications Metoprolol, Lisinopril and HCTZ. Exposure to COVID-19 virus Fibromyalgia Flu-like symptoms Generalized anxiety disorder Herpes virus infection of oral mucosa Hypertension screen Medication management Memory changes Nausea Neuropathy Pelvic pain Sinusitis Urinary tract infection UTI (urinary tract infection), bacterial Vaginal yeast infection Vitamin D deficiency Surgical History History of History of carpal tunnel release Right Status post left breast lumpectomy (~09/2019) With sentinel lymph node biopsy, 4 lymph nodes negative Family History Brother Bleeding disorder Daughter Bleeding disorder Denies family history of Anesthesia complication Social History Smoking and tobacco status: never smoked Alcohol intake: never Household members: spouse Marital status: Current occupational status: disabled Current occupation: retired/disabled History of recent travel: No Mental Status Exam MSE Comments: This is a well nourished, well developed white female in hospital scrubs with adequate grooming and eye contact. No abnormal movements except for mild psychomotor retardation. Cooperative with exam in mild distress. Speech was normal rate and volume. Mood described as down, affect is congruent. Thought process, organized. Thought content: patient denies any suicidal or homicidal ideation, no delusions reported or noted, and did not appear to be appearing to internal stimulus. Attention and concentration were mostly intact and memory appeared reliable though none were formally tested. She is alert and oriented three times. Insight and judgment appear limited. Impulse control is limited. Vitals/I&O/Wt Last Vital Signs Temp 97.9 F 01/10/22 06:00 Pulse 63 01/10/22 06:00 Resp 15 01/10/22 06:00 BP 124/77 01/10/22 06:00 Pulse Ox 97 01/10/22 06:00 Weight last 48 hrs Weight 90.718 kg Data NPU : 01/09/22 19:30 01/09/22 19:30 A&P Assessment and plan (1) Suicidal ideation: Status: Acute (2) Generalized anxiety disorder: Status: Acute (3) Major depressive disorder, recurrent: Status: Acute (4) Attention-deficit hyperactivity disorder, combined type: Status: Acute (5) Chronic pain after surgical procedure for malignant neoplasm: Status: Acute Plan The patient is a 61 year old white female with a past history of attention deficit hyperactivity disorder, combined type, major depressive disorder, recurrent, severe without psychotic features and generalized anxiety disorder who presents having been placed on an involuntary hold secondary to endorsing suicidal ideation after receiving information of her ?s long standing infidelity. 1. Restart current medications except initiate Ritalin 10 mg po q tid as Adderall is currently unavailable. 2. Encourage individual, group and milieu therapy 3. Continue q-15 minute check for safety 4. We will gather collateral information to identify concerns relative to the 96-hour hold. Involuntary Hold Information 96 Hour Hold: 96 Hour Involuntary Admission: Yes 96 Hour Hold Ending Date: 01/15/22 96 Hour Hold Ending Time: 22:50 Attestations NPU Medical Necessity Statement*: Inpatient hospitalization is medically necessary and the clinically appropriate intervention at this time. We will monitor medications and make changes as indicated. Patient will be in the hospital for over two midnights. Likely length of stay is 1 to 3 days. Coding Level of Care Code Acute Director Skills for Gurinder Garcia Diagnoses Suicidal ideation R45.851 Generalized anxiety disorder F41.1 Major depressive disorder, recurrent F33.9 Attention-deficit hyperactivity disorder, combined type F90.2 Chronic pain after surgical procedure for malignant neoplasm G89.28; C80.1
[2022-01-10 14:00] VITALS: BP 147/83; PULSE 74; RESP 17; TEMP 37.1; O2SAT 98
[2022-01-10 14:23] VITALS: RESP 18
[2022-01-10] MEDS: oxyCODONE 5 mg IR Tab/Cap 10 MG PO ×2 (14:23→20:52)
[2022-01-10 20:14] VITALS: BP 122/85; PULSE 74; RESP 16; O2SAT 96
[2022-01-10 20:52] VITALS: RESP 16
[2022-01-10] MEDS: quetiapine 25 mg Tablet PO (20:53)
[2022-01-11 06:00] VITALS: BP 107/71; PULSE 55; RESP 18; O2SAT 95
[2022-01-11 06:06] VITALS: RESP 16
[2022-01-11] MEDS: oxyCODONE 5 mg IR Tab/Cap 10 MG PO ×2 (06:06→11:22)
[2022-01-11] MEDS: buPROPion XL (24 HR) 150 mg Tablet PO (06:06)
[2022-01-11] MEDS: fluoxetine 20 mg Capsule 80 MG PO (09:34)
[2022-01-11] MEDS: metoprolol succinate ER (24 HR) 25 mg Tablet PO (09:35)
[2022-01-11] MEDS: pantoprazole DR 40 mg Tablet PO (09:35)
[2022-01-11] MEDS: lisinopril 20 mg Tablet 40 MG PO (09:35)
[2022-01-11] MEDS: methylphenidate 10 mg Tablet PO ×2 (09:35→16:53)
[2022-01-11] MEDS: lactulose oral liq 20 gm/30 mL UDC 30 GM PO (10:09)
[2022-01-11 11:22] VITALS: RESP 16; O2SAT 99
[2022-01-11 13:39] VITALS: BP 142/85; PULSE 73; RESP 18; TEMP 36.8; O2SAT 97
--- NOTE | 2022-01-11 15:41 | W.PM.NPUPNS ---
Subjective NPU Subjective: Patient presents today reporting she is feeling okay but still lost in her situation. She reports that she is still in disbelief and not sure what her plan is. She is uncertain whether she can return back to her residence from a long-term standpoint. Not sure what she wants to do still being in a very emotional place. There are multiple aspects to consider that she does go home do not really clear what the options are. She reports eating okay and reports that her medications worked well for her before this discovery and so this is just a shock moment. Mental Status Exam MSE Comments: This is an overweight versus obese white female looking older than her stated age in hospital scrubs with adequate grooming and eye contact. No abnormal movements except for mild psychomotor retardation. Cooperative with exam in mild distress. Speech was normal rate and volume. Mood described as still struggling, affect is congruent. Thought process, organized. Thought content: patient denies any suicidal or homicidal ideation, no delusions reported or noted, and did not appear to be appearing to internal stimulus. Attention and concentration were mostly intact and memory appeared reliable though none were formally tested. She is alert and oriented three times. Insight and judgment appear limited. Impulse control is limited. Vitals/I&O/Wt Last Vital Signs Temp 98.3 F 01/11/22 13:39 Pulse 73 01/11/22 13:39 Resp 18 01/11/22 13:39 BP 142/85 01/11/22 13:39 Pulse Ox 97 01/11/22 13:39 Data NPU : 01/09/22 19:30 01/09/22 19:30 A&P Assessment and plan (1) Major depressive disorder, recurrent: Status: Acute (2) Suicidal ideation: Status: Acute (3) Generalized anxiety disorder: Status: Acute (4) Attention-deficit hyperactivity disorder, combined type: Status: Acute (5) Marital/partner relational problem: Status: Acute Plan The patient is a 61 year old white female with a past history of attention deficit hyperactivity disorder, combined type, major depressive disorder, recurrent, severe without psychotic features and generalized anxiety disorder who presents having been placed on an involuntary hold secondary to endorsing suicidal ideation after receiving information of her ?s long standing infidelity. 1.? Restart current medications except initiated Ritalin 10 mg po q tid as Adderall is currently unavailable. 2.? Encourage individual, group and milieu therapy 3.? Continue q-15 minute check for safety 4.? We will gather collateral information to identify concerns relative to the 96-hour hold. Involuntary Hold Information 96 Hour Hold: 96 Hour Involuntary Admission: Yes 96 Hour Hold Ending Date: 01/15/22 96 Hour Hold Ending Time: 22:50 Attestations NPU Medical Necessity Statement*: Inpatient hospitalization is medically necessary and the clinically appropriate intervention at this time. We will monitor medications and make changes as indicated. Likely length of stay is 2-4 days. Coding Level of Care Code Acute Contract Technical Writer for g Fwd Diagnoses Major depressive disorder, recurrent F33.9 Suicidal ideation R45.851 Generalized anxiety disorder F41.1 Attention-deficit hyperactivity disorder, combined type F90.2 Marital/partner relational problem Z63.0
[2022-01-11 20:04] VITALS: BP 90/64; PULSE 67; RESP 17; TEMP 36.9; O2SAT 98
[2022-01-11] MEDS: quetiapine 25 mg Tablet PO (20:06)
[2022-01-11] MEDS: trazodone 50 mg Tablet PO (20:06)
[2022-01-12] VITALS (8 sets, daily range): BP systolic 107–122; BP diastolic 57–73; PULSE 62–64; RESP 16–20; TEMP 36.4–36.8; O2SAT 96–97
[2022-01-12] MEDS: oxyCODONE 5 mg IR Tab/Cap 10 MG PO ×5 (00:13→17:51)
[2022-01-12] MEDS: buPROPion XL (24 HR) 150 mg Tablet PO (06:03)
[2022-01-12] MEDS: lisinopril 20 mg Tablet 40 MG PO (08:20)
[2022-01-12] MEDS: FUROsemide 20 mg Tablet PO (08:20)
[2022-01-12] MEDS: methylphenidate 10 mg Tablet PO ×3 (08:20→14:53)
[2022-01-12] MEDS: docusate sodium 100 mg Capsule PO (08:20)
[2022-01-12] MEDS: pantoprazole DR 40 mg Tablet PO (08:20)
[2022-01-12] MEDS: metoprolol succinate ER (24 HR) 25 mg Tablet PO (08:21)
[2022-01-12] MEDS: fluoxetine 20 mg Capsule 80 MG PO (08:21)
[2022-01-12] MEDS: polyethylene glycol 3350 Pkt 17 gm PO ×2 (09:31→17:51)
--- NOTE | 2022-01-12 09:32 | W.PM.NPUPNS ---
Subjective NPU Subjective: Patient presents today reporting that she is feeling okay. She has not contacted her or anybody else in the family and has basically tried to avoid thinking about the big decisions that are needing to be made at this point. We talked about her starting Thursday morning working with the social work team about what her discharge plan is going to be and if she is going to consider home or some alternative living arrangement initially while she tries to deal with the situation with her . Mental Status Exam MSE Comments: This is an overweight versus obese white female looking older than her stated age in hospital scrubs with adequate grooming and eye contact. No abnormal movements except for mild psychomotor retardation. Cooperative with exam in mild distress. Speech was normal rate and volume. Mood described as okay, affect is congruent and slightly subdued. Thought process, organized. Thought content: patient denies any suicidal or homicidal ideation, no delusions reported or noted, and did not appear to be appearing to internal stimulus. Attention and concentration were mostly intact and memory appeared reliable though none were formally tested. She is alert and oriented three times. Insight and judgment appear limited. Impulse control is limited. Vitals/I&O/Wt Last Vital Signs Temp 97.6 F 01/12/22 05:55 Pulse 63 01/12/22 05:55 Resp 18 01/12/22 06:04 BP 107/69 01/12/22 05:55 Pulse Ox 96 01/12/22 05:55 Weight last 48 hrs Weight 101.151 kg Data NPU : 01/09/22 19:30 01/09/22 19:30 A&P Assessment and plan (1) Marital/partner relational problem: Status: Acute (2) Major depressive disorder, recurrent: Status: Acute (3) Suicidal ideation: Status: Acute (4) Generalized anxiety disorder: Status: Acute (5) Neuropathy: Status: Acute (6) Status post left breast lumpectomy: Status: Acute (7) Attention-deficit hyperactivity disorder, combined type: Status: Acute Plan The patient is a 61 year old white female with a past history of attention deficit hyperactivity disorder, combined type, major depressive disorder, recurrent, severe without psychotic features and generalized anxiety disorder who presents having been placed on an involuntary hold secondary to endorsing suicidal ideation after receiving information of her ?s long standing infidelity. 1.? Restart current medications except initiated Ritalin 10 mg po q tid as Adderall is currently unavailable. 2.? Encourage individual, group and milieu therapy 3.? Continue q-15 minute check for safety 4.? We will gather collateral information to identify concerns relative to the 96-hour hold. Involuntary Hold Information 96 Hour Hold: 96 Hour Involuntary Admission: Yes 96 Hour Hold Ending Date: 01/15/22 96 Hour Hold Ending Time: 22:50 Attestations NPU Medical Necessity Statement*: Inpatient hospitalization is medically necessary and the clinically appropriate intervention at this time. We will monitor medications and make changes as indicated. Likely length of stay is 1-3 days. Coding Level of Care Code Acute [employer] for Chg Fwd Diagnoses Marital/partner relational problem Z63.0 Major depressive disorder, recurrent F33.9 Suicidal ideation R45.851 Generalized anxiety disorder F41.1 Neuropathy G62.9 Status post left breast lumpectomy Z98.890 Attention-deficit hyperactivity disorder, combined type F90.2
[2022-01-12] MEDS: quetiapine 25 mg Tablet PO (21:35)
[2022-01-12] MEDS: trazodone 50 mg Tablet PO (21:37)
[2022-01-13 06:00] VITALS: BP 147/53; PULSE 68; RESP 20; TEMP 36.6; O2SAT 94
[2022-01-13 06:23] VITALS: RESP 20
[2022-01-13] MEDS: oxyCODONE 5 mg IR Tab/Cap 10 MG PO ×4 (06:23→17:08)
[2022-01-13] MEDS: buPROPion XL (24 HR) 150 mg Tablet PO (06:23)
[2022-01-13] MEDS: docusate sodium 100 mg Capsule PO (08:15)
[2022-01-13] MEDS: acetaminophen 325 mg Tablet 650 MG PO (08:15)
[2022-01-13] MEDS: aspirin 81 mg EC Tablet PO (08:15)
[2022-01-13] MEDS: lisinopril 20 mg Tablet 40 MG PO (08:15)
[2022-01-13] MEDS: polyethylene glycol 3350 Pkt 17 gm PO (08:15)
[2022-01-13] MEDS: pantoprazole DR 40 mg Tablet PO (08:16)
[2022-01-13] MEDS: metoprolol succinate ER (24 HR) 25 mg Tablet PO (08:16)
[2022-01-13] MEDS: methylphenidate 10 mg Tablet PO ×3 (08:16→15:14)
[2022-01-13] MEDS: FUROsemide 20 mg Tablet PO (08:16)
[2022-01-13 08:17] VITALS: RESP 20; O2SAT 94
[2022-01-13] MEDS: fluoxetine 20 mg Capsule 80 MG PO (08:17)
[2022-01-13 12:40] VITALS: RESP 16
[2022-01-13 14:00] VITALS: BP 120/82; PULSE 68; RESP 20; TEMP 36.7; O2SAT 97
--- NOTE | 2022-01-13 14:12 | P.NPUDS_ITS ---
Diagnoses at Discharge Discharge Diagnosis (1) Marital/partner relational problem: Status: Acute (2) Major depressive disorder, recurrent: Status: Acute (3) Suicidal ideation: Status: Resolved (4) Generalized anxiety disorder: Status: Acute (5) Neuropathy: Status: Acute (6) Status post left breast lumpectomy: Status: Acute Permanent problem details: With sentinel lymph node biopsy, 4 lymph nodes negative (7) Attention-deficit hyperactivity disorder, combined type: Status: Acute Reason for Visit Reason for Visit: SI Brief History: History of Present Illness Ana Chavez is a 61 year old female who presented to the emergency department with the following report: Chief Complaint: Psychiatric Symptoms Stated Complaint: SI Time Seen by Provider: 01/09/22 19:26 Source: patient and EMS Mode of arrival: EMS Limitations: no limitations History of Present Illness:?? 61-year-old female who states that over the last 4 to 5 days she has became increasingly depressed.? Patient here is a very flat affect she is tearful during the whole time and states she just no longer wants to live.? States she wants to be knocked out and just to .? She states she been having these thoughts over the last 4 to 5 days family called EMS they were concerned that she may have kill herself.? She has no other complaints at this time. Associated symptoms: Reports suicidal ideation She was admitted to the neuropsychiatric unit for definitive treatment of those issues.? The patient presents today to hospital reporting she had a breakdown. She denies any known allergies to medications and is currently taking Adderall XR 25mg po q am, Wellbutrin 150 mg po q daily, Prozac 40 mg 2 capsule po q am, and Seroquel 25 mg po q pm. She reports she had found out approximately 2 days ago that her of 40 had been having an affair. She states that she had discovered this information from her grandchildren and reports that she was embarrassed. She reports she confronted her and he had laughed at her. She reports that is possible she made a suicidal statement but was unable to recall during the interview. She reports that she had ?flipped out and tore up my house with a knife? with reported significant verbal outbursts and destruction of property. She denies any inpatient psychiatric hospitalizations and reports receiving outpatient treatment for over 40 years, the most recent of which was through [facility] outpatient clinic under a nurse practitioner Lilibeth Gasca. She reports she was previously diagnosed with generalized anxiety disorder, major depressive disorder and attention deficit hyperactivity disorder. She has been on a number of medication in the past including Concerta, Zoloft, Effexor, and Paxil. She denies any tobacco, alcohol, marijuana or any other illicit drug use. She denies any current suicidal or homicidal ideation. She endorses struggling with depression for close to 40 years but denies feelings of helplessness or hopelessness. She reports that prior to this incident, she had been managing her mood well and denies any significant mood swings. She denies any history of santos and denies experiencing any current or past episodes of psychosis. She reports having chronic problems with worrying consistent with symptoms of anxiety. She endorses her sleep has been well managed on her current medications and denies any issues or need for changes. She endorses having challenges with concentration and focusing during school. The patient has a significant history of psychiatric treatment for attention deficit hyperactivity disorder, major depressive disorder and generalized anxiety disorder which appear to have been partially treated in the past. She also has significant pain issues which could be complicating her current mood. Psychiatric History: As above. Substance Abuse History: As above Family History: She reports mental health issues on her mother?s side of the family with adhd in her mother and her brother with anxiety and depression. She reports her daughter problems with addiction but no other addiction issues reported. Developmental History: She denies any issues with her or , learned to walk and talk and met her developmental milestones on time, and denies any need for speech therapy, learning support, emotional support or special education classes. Psychosocial History: Her parents were together when she was born and remained together until her mot her around 4 years ago.The highest grade she achieved was 11th grade She endorses being heterosexual with her longest relationship being her current marriage of over 40 years. She is currently, has 2 daughters, has never been in the and endorses being gnosticism. 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 Legal History: There were no reports of legal issues made throughout the interview. Medical History: She has a history of breast cancer for which she received chemotherapy and radiation. She has a history of a left lumpectomy in 2019. She had a and has a history of hypertension and chronic pain issues. Hospital Course Hospital Course She slowly acclimated to the individual, group and milieu therapies provided. Her home medications, which she had reported had ineffective prior to the discovery of her 's infidelity, were continued with the exception of trazodone for assistance with sleep. She had marked improvement during the stay but was still stuck with the specter of dealing with her disintegrating relationship and was struggling with the idea of that happening in her home. Ultimately she worked with the treatment team and was able to find a safe discharge plan that allow her to work on her neck step in the relationship in a safe environment. She was able to contract for safety outside of the hospital prior to discharge. During the hospitalization, patient had routine laboratory studies which were within normal limits except for few outliers. Additionally there was a general medical evaluation which was also within normal limits and revealed no new acute processes. Discharge Summary: At the time of discharge, she denied psychosis or lethality. Mood and anxiety were well managed. Patient endorsed a plan to avoid all drugs of abuse and follow-up with the aftercare recommendations of the treatment team. Patient was evaluated and deemed to be absent credible lethality, and had achieved the maximum benefit from an inpatient hospitalization, so was discharged. Involuntary Hold Information 96 Hour Hold: 96 Hour Involuntary Admission: Yes 96 Hour Hold Ending Date: 01/15/22 96 Hour Hold Ending Time: 22:50 Mental Status Exam MSE Comments: This is an overweight versus obese white female looking older than her stated age in hospital scrubs with adequate grooming and eye contact. No abnormal movements except for mild psychomotor retardation. Cooperative with exam in no acute distress. Speech was normal rate and volume. Mood described as better, affect is congruent and slightly subdued.? Thought process, organized. Thought content: patient denies any suicidal or homicidal ideation, no delusions reported or noted, and did not appear to be appearing to internal stimulus. Attention and concentration were mostly intact and memory appeared reliable though none were formally tested. She is alert and oriented three times. Insight and judgment appear improving. Impulse control is limited, but improving Discharge Data Studies Completed and Pending: Completed Studies During Hospitalization Category Date Time Status CXRP [XR chest 1V portable [id number]] S tat Exams 01/09/22 19:29 Completed Radiology Impressions Chest X-Ray 01/09/22 19:29 IMPRESSION: No acute findings. Laboratory Results WBC 7.6 10^3/uL (4.0- 10.0) 01/09/22 19: RBC 4.27 10^6/uL (4.1 -5.3) 01/09/22: Hgb 13.0 g/dL (11.5-1 5.3) 01/09/22: Hct 38.0 % (37.0-47.0 ) 01/09/22: MCV 89.0 fl (81-99) 01/09/22: MCH 30.4 pg (28.0-34. 0) 01/09/22: MCHC 34.2 g/dL (30.0-3 6.0) 01/09/22: RDW 12.8 % (12.1-15.1 ) 01/09/22: Plt Count 187 10^3/cmm (130 -400) 01/09/22: MPV 10.5 fL (7.4-10.4 ) H 01/09/22: Neut % (Auto) 65.6 % 01/09/22: Lymph % (Auto) 22.9 % 01/09/22: Haralson % (Auto) 9.5 % 01/09/22: Eos % (Auto) 1.2 % 01/09/22: Baso % (Auto) 0.5 % 01/09/22: Neut # (Auto) 4.97 10^3/uL (1.8 -7.7) 01/09/22: Lymph # (Auto) 1.7 10^3/uL (0.8- 4.8) 01/09/22: Haralson # (Auto) 0.7 10^3/uL (0.2- 0.9) 01/09/22: Eos # (Auto) 0.1 10^3/uL (0.0- 0.8) 01/09/22: Baso # (Auto) 0.0 10^3/uL (0.0- 0.1) 01/09/22: Nucleated RBC % (a uto) 0 % 01/09/22: Nucleated RBCs # 0.0 /100WBC 06/23/22 19:30 Sodium 141 mmol/L (136-1 45) 01/09/22 19:30 Potassium 2.7 mmol/L (3.5-5 .1) L* 01/09/22 19:30 Chloride 102 mmol/L (98-10 7) 01/09/22 19:30 Carbon Dioxide 26 mmol/L (22-29) 01/09/22 19:30 Anion Gap 15.7 (5-19) 01/09/22 19:30 BUN 14 mg/dL (8-23) 01/09/22 19:30 Creatinine 0.7 mg/dL (0.5-0. 9) 01/09/22 19:30 GFR Calculation 84.8 mL/min (90-1 30) L 01/09/22 19:30 Glucose 94 mg/dL (65-115) 01/09/22 19:30 Calculated Osmolal ity 292 mOsm/kg (285- 295) 01/09/22 19:30 Calcium 9.2 mg/dL (8.5-10 .5) 01/09/22 19:30 Total Bilirubin 0.5 mg/dL (0.15-1 .2) 01/09/22 19:30 AST 13 U/L (0-32) 01/09/22 19:30 ALT 14 U/L (0-33) 01/09/22 19:30 Alkaline Phosphata se 99 IU/L (35-105) 01/09/22 19:30 Total Protein 6.5 g/dL (6.6-8.7 ) L 01/09/22 19:30 Albumin 4.1 g/dL (3.5-5.2 ) 01/09/22 19:30 Globulin 2.4 g/dL (1.3-4.6 ) 01/09/22 19:30 Salicylates < 0.3 mg/dL (3-10 ) L 01/09/22 19:30 Acetaminophen < 5.0 ug/mL (10-3 0) L 01/09/22 19:30 Ethyl Alcohol < 10 mg/dL (0-10) 01/09/22 19:30 Vitals: Last Vital Signs Temp 97.8 F 01/13/22 06:00 Pulse 68 01/13/22 06:00 Resp 16 01/13/22 12:40 BP 147/53 01/13/22 06:00 Pulse Ox 94 01/13/22 08:17 Discharge Plan Discharge Patient Disposition: Home Condition: Stable Prescriptions: New trazodone 50 mg Tablet 50 mg PO BEDTIME PRN (Reason: Sleep) 30 Days Qty: 30 1RF Continued dextroamphetamine-amphetamine [Adderall XR] 25 mg capsule,extended release 24hr 25 mg PO DAILY 30 Days Qty: 30 0RF dextroamphetamine-amphetamine [Adderall XR] 25 mg capsule,extended release 24hr 25 mg PO DAILY 30 Days Qty: 30 0RF Nucynta 50 mg tablet 50 mg PO QID PRN (Reason: pain) 10 Days Qty: 40 0RF lorazepam 1 mg tablet 1 mg PO BID PRN (Reason: anxiety) Qty: 60 2RF Seroquel 25 mg tablet 25 mg PO BEDTIME 0RF omeprazole 40 mg capsule,delayed release(DR/EC) 40 mg PO DAILY 0RF Rx Instructions: TAKE 1 CAPSULE BY MOUTH EVERY DAY mometasone 50 mcg/actuation spray,non-aerosol 2 spray intranasal DAILY 0RF Rx Instructions: administer 2 SPRAYS into EACH nostril ONCE DAILY furosemide 20 mg tablet 20 mg PO DAILY 0RF metoprolol succinate 25 mg tablet extended release 24 hr 25 mg PO DAILY 0RF Rx Instructions: TAKE 1 TABLET BY MOUTH DAILY lisinopril 40 mg tablet 40 mg PO DAILY 0RF Rx Instructions: TAKE 1 TABLET BY MOUTH DAILY No Action bupropion HCl [Wellbutrin XL] 150 mg tablet extended release 24 hr 150 mg PO QAM Qty: 30 0RF fluoxetine [Prozac] 40 mg capsule 80 mg PO DAILY Qty: 60 0RF diclofenac potassium 50 mg tablet 50 mg PO BID Qty: 60 0RF aspirin [Adult Aspirin Regimen] 81 mg tablet,delayed release (DR/EC) 81 mg PO DAILY Qty: 90 3RF Discharge Orders: Discharge Order (Routine); Ordered 01/13/22 Ordered By: García North Referrals: Tg Martinez [Other] Sana Lambert PMHNP [Staff Physician] - 01/16/22 11:45 am (Follow up) Theo Fonseca MD [Primary Care Provider] - Discharge Diet: Regular Discharge Activity: Resume usual activity Patient Instructions: Generalized Anxiety Disorder, Trazodone (By mouth), De pression (DC), Suicide Prevention (DC), Opioid Safety Discharge Attestations NPU Time Spent in Discharge Care*: less than 30 min Specific Discharge Activities: Specific discharge activities: educating patient, discussing with top case assembler/social workers/dc planners, documenti ng/other paperwork and evaluating patient/reviewing data Coding Level of Care Code Acute Chg FW DC note Diagnoses Marital/partner relational problem Z63.0 Major depressive disorder, recurrent F33.9 Suicidal ideation R45.851 Generalized anxiety disorder F41.1 Neuropathy G62.9 Status post left breast lumpectomy Z98.890 Attention-deficit hyperactivity disorder, combined type F90.2
--- NOTE | 2022-01-13 15:39 | DCPLANNER ---
IMM given to pt and rights explained. Copy placed in chart.
[2022-01-13 16:25] VITALS: BP 120/82; PULSE 68; RESP 20; TEMP 36.7; O2SAT 97
== END 2022-01-13 17:26 | disposition home or self-care (01) | DRG 885 ==
LOC: ER 20:37 → NP 20:57
PROVIDERS: Admitting Provider Psychiatry & Neurology Psychiatry; Emergency Provider Emergency Medicine; PCP Family Medicine; Visit Provider Psychiatry & Neurology Psychiatry
DX: F33.9 Major depressive disorder, recurrent, unspecified (principal); R45.851 Suicidal ideations; F90.2 Attention-deficit hyperactivity disorder, combined type; Z85.3 Personal history of malignant neoplasm of breast; G89.28 Other chronic postprocedural pain; M54.2 Cervicalgia; M54.50 Low back pain, unspecified; I10 Essential (primary) hypertension; F41.1 Generalized anxiety disorder; G62.9 Polyneuropathy, unspecified; Z87.440 Personal history of urinary (tract) infections; Z81.8 Family history of other mental and behavioral disorders; Z92.21 Personal history of antineoplastic chemotherapy; Z92.3 Personal history of irradiation; Z63.0 Problems in relationship with spouse or partner
CPT/HCPCS: 71045; 80053; 80307; 85025; 93005; 96372; 97150; 97165; 99285; J2060

== ENCOUNTER 2022-01-30 14:15 | Oncology outpatient (recurring) (ONCR) | payer MEDICARE, MEDICAID, SELFPAY ==
[2022-01-30 16:11] LABS: Basophils # 0.1 10^3/uL (0.0-0.1); Basophils % 1.2 %; Eosinophils # 0.2 10^3/uL (0.0-0.8); Eosinophils % 4.7 %; Hematocrit 35.5 % (37.0-47.0); Hemoglobin 11.3 g/dL (11.5-15.3); Lymphocytes # 1.4 10^3/uL (0.8-4.8); Lymphocytes % 32.6 %; Mean Corpuscular HGB Conc 31.8 g/dL (30.0-36.0); Mean Corpuscular Hemoglobin 30.2 pg (28.0-34.0); Mean Corpuscular Volume 94.9 fl (81-99); Mean Platelet Volume 10.3 fL (7.4-10.4); Monocytes # 0.5 10^3/uL (0.2-0.9); Monocytes % 10.5 %; Neutrophils # 2.19 10^3/uL (1.8-7.7); Nucleated Red Blood Cells % 0 %; Platelet Count 163 10^3/cmm (130-400); Red Blood Count 3.74 10^6/uL (4.1-5.3); Red Cell Distribution Width 12.9 % (12.1-15.1); White Blood Count 4.3 10^3/uL (4.0-10.0)
[2022-01-30 16:40] LABS: Alanine Aminotransferase 8 U/L (0-33); Albumin Level 3.8 g/dL (3.5-5.2); Alkaline Phosphatase 90 IU/L (35-105); Aspartate Amino Transferase 13 U/L (0-32); Blood Urea Nitrogen 14 mg/dL (8-23); Calcium 8.9 mg/dL (8.5-10.5); Carbon Dioxide 31 mmol/L (22-29); Chloride 102 mmol/L (98-107); Globulin 2.5 g/dL (1.3-4.6); Glomerular Filtration Rate 84.8 mL/min (90-130); Glucose 82 mg/dL (65-115); Osmolality Calculated 290 mOsm/kg (285-295); Sodium 140 mmol/L (136-145); Thyroid Stimulating Hormone 1.74 uIU/mL (0.27-4.20); Total Bilirubin 0.2 mg/dL (0.15-1.2); Total Protein 6.3 g/dL (6.6-8.7)
[2022-01-30 16:48] LABS: Anion Gap 10.5 (5-19); Potassium 3.5 mmol/L (3.5-5.1)
[2022-01-30 17:24] LABS: Iron 62 ug/dL (37-145); Percent Saturation 22.3 % (20-50); Total Iron Binding Capacity 278 mcg/dl; Unsaturated Iron Binding 216 ug/dL (112-347)
[2022-01-30 17:40] LABS: Vitamin B12 261 pg/mL (232-1245)
== END 2022-02-16 23:59 | disposition home or self-care (01) ==
PROVIDERS: PCP Family Medicine; Visit Provider Internal Medicine Medical Oncology
DX: Z08 Encounter for follow-up examination after completed treatment for malignant neoplasm (principal); Z92.21 Personal history of antineoplastic chemotherapy; Z92.3 Personal history of irradiation; Z85.3 Personal history of malignant neoplasm of breast; G89.29 Other chronic pain; M47.819 Spondylosis without myelopathy or radiculopathy, site unspecified; M79.7 Fibromyalgia; G62.9 Polyneuropathy, unspecified; E04.2 Nontoxic multinodular goiter; D64.9 Anemia, unspecified
CPT/HCPCS: 36415; 80053; 82607; 83540; 83550; 84443; 85025; 99214

== ENCOUNTER 2022-03-12 13:37 | Outpatient (CLI) | payer MEDICARE, MEDICAID, SELFPAY ==
--- NOTE | 2022-03-12 13:47 | MM_ITS ---
WS: [id number] LEFT 3D TOMOSYNTHESIS DIGITAL MAMMOGRAPHY WITH CAD CLINICAL INFORMATION: HX OF BREAST CA;ABNORMAL MAMMO HISTORY: COMPARISON: September 04, 2021 TECHNIQUE: 3 views of the left breast were obtained. FINDINGS: Scattered fibroglandular densities of the left breast. Dense parenchymal tissue in the surgical cavit y upper outer quadrant LEFT breast is similar in appearance to the prior examinations. This measures a few millimeters smaller today. No evidence of progression. Ultrasound described below. Surgical clips upper outer quadrant. Vascular calcification. Punctate and lucent centered calcificati ons. ULTRASOUND BREAST LEFT TECHNIQUE: Ultrasound left breast focused area of concern. CLINICAL INFORMATION: HX OF BREAST CA;ABNORMAL MAMMO COMPARISON: September 04, 2021 FINDINGS: Ultrasound LEFT breast area of prior lumpectomy axillary tail at the lumpectomy scar. Again seen is t he complex septated fluid collection which measures a few millimeters smaller today measuring 3.0 x 2 .7 x 1.8 cm compared to 3.4 x 3.1 x 1.9 cm previous. Stability is reassuring and this most likely rep resents a complex postoperative seroma. No other suspicious findings. This is relatively stable since July 27, 2020 and recommend additional six-month follow-up to ensure 2 year stability MM/[place] [id number] IMPRESSION: BI-RADS: 3-Probably Benign FOLLOW UP: 6 Month Follow-up Recommend 6 month follow-up LEFT diagnostic mammography and ultrasound.
== END 2022-03-12 13:38 | disposition home or self-care (01) ==
LOC: RAD 13:39
PROVIDERS: PCP Family Medicine; Visit Provider Internal Medicine Medical Oncology
DX: Z85.3 Personal history of malignant neoplasm of breast (principal); R92.8 Other abnormal and inconclusive findings on diagnostic imaging of breast
CPT/HCPCS: 76642; 77061

== ENCOUNTER 2022-09-03 08:32 | Oncology outpatient (recurring) (ONCR) | payer MEDICARE, MEDICAID, SELFPAY ==
[2022-09-03 11:14] LABS: Basophils % 0.6 %; Eosinophils # 0.2 10^3/uL (0.0-0.8); Eosinophils % 2.5 %; Hematocrit 35.7 % (37.0-47.0); Hemoglobin 11.6 g/dL (11.5-15.3); Lymphocytes # 1.7 10^3/uL (0.8-4.8); Lymphocytes % 25.6 %; Mean Corpuscular HGB Conc 32.5 g/dL (30.0-36.0); Mean Corpuscular Hemoglobin 29.8 pg (28.0-34.0); Mean Corpuscular Volume 91.8 fl (81-99); Mean Platelet Volume 9.5 fL (7.4-10.4); Monocytes # 0.5 10^3/uL (0.2-0.9); Monocytes % 8.3 %; Neutrophils # 4.07 10^3/uL (1.8-7.7); Neutrophils % 62.8 %; Nucleated Red Blood Cells % 0 %; Platelet Count 174 10^3/cmm (130-400); Red Blood Count 3.89 10^6/uL (4.1-5.3); Red Cell Distribution Width 12.9 % (12.1-15.1); White Blood Count 6.5 10^3/uL (4.0-10.0)
[2022-09-03 11:51] LABS: 25 Hydroxy Vitamin D 33 ng/mL (30-100); Alanine Aminotransferase 12 U/L (0-33); Albumin Level 4.1 g/dL (3.5-5.2); Alkaline Phosphatase 108 U/L (35-105); Anion Gap 11.3 (5-19); Aspartate Amino Transferase 14 U/L (0-32); Blood Urea Nitrogen 11 mg/dL (8-23); Carbon Dioxide 30 mmol/L (22-29); Chloride 103 mmol/L (98-107); Globulin 2.3 g/dL (1.3-4.6); Glomerular Filtration Rate 84.5 mL/min (90-130); Glucose 94 mg/dL (65-115); Iron 79 ug/dL (37-145); Osmolality Calculated 289 mOsm/kg (285-295); Potassium 4.3 mmol/L (3.5-5.1); Sodium 140 mmol/L (136-145); Thyroid Stimulating Hormone 1.71 uIU/mL (0.27-4.20); Total Bilirubin 0.3 mg/dL (0.15-1.2); Total Iron Binding Capacity 292 mcg/dl; Total Protein 6.4 g/dL (6.6-8.7); Unsaturated Iron Binding 213 ug/dL (112-347); Vitamin B12 565 pg/mL (232-1245)
== END 2022-09-16 23:59 | disposition home or self-care (01) ==
LOC: RAD 15:47 → ONCMED 09-15 06:53
PROVIDERS: PCP Family Medicine; Visit Provider Internal Medicine Medical Oncology
DX: Z08 Encounter for follow-up examination after completed treatment for malignant neoplasm (principal); Z92.21 Personal history of antineoplastic chemotherapy; Z92.3 Personal history of irradiation; Z85.3 Personal history of malignant neoplasm of breast; G89.29 Other chronic pain; M47.819 Spondylosis without myelopathy or radiculopathy, site unspecified; M79.7 Fibromyalgia; G62.9 Polyneuropathy, unspecified; E55.9 Vitamin D deficiency, unspecified; Z79.899 Other long term (current) drug therapy; Z79.891 Long term (current) use of opiate analgesic
CPT/HCPCS: 36415; 76642; 77062; 80053; 82306; 82607; 83540; 83550; 84443; 85025; 99214; G0279

== ENCOUNTER 2023-02-16 08:44 | Outpatient (CLI) | payer MEDICARE, MEDICAID, SELFPAY ==
--- NOTE | 2023-02-16 08:51 | MM_ITS ---
WS: [id number] LEFT 3D TOMOSYNTHESIS DIGITAL MAMMOGRAPHY WITH CAD CLINICAL INFORMATION: 6MFU HISTORY: Breast cancer COMPARISON: September 03, 2022 March 12, 2022 and 2020 TECHNIQUE: 3 views of the left breast were obtained. FINDINGS: Scattered fibroglandular densities bilaterally. Dense parenchymal tissue at the surgical cavity upper outer quadrant LEFT breast is similar in appearance to the prior examinations. This appears slightly less dense today compared to previous. No evidence of progression. Surgical cli ps upper outer quadrant. Vascular calcification. Punctate and lucent centered calcifications. Ultraso und described below. ULTRASOUND BREAST LEFT TECHNIQUE: Ultrasound left breast focused area of concern. CLINICAL INFORMATION: 6MFU FINDINGS: Ultrasound LEFT breast in the area of prior lumpectomy near the axillary tail. Again seen is the comp shasha collection with internal debris which measures 2.3 x 2.3 x 1.6 cm. This is not significantly españa ged in size and appears slightly less dense today. This is decreased in size over multiple prior exam inations This is presumed to represent complex postoperative seroma. No other significant changes. Recommend continued follow-up to ensure resolution. MM/[place] [id number] IMPRESSION: BI-RADS: 3-Probably Benign FOLLOW UP: 6 Month Follow-up Recommend LEFT breast diagnostic mammography and ultrasound at time of annual d iagnostic mammography
== END 2023-02-16 08:45 | disposition home or self-care (01) ==
PROVIDERS: PCP Family Medicine; Visit Provider Internal Medicine Medical Oncology
DX: Z85.3 Personal history of malignant neoplasm of breast (principal)
CPT/HCPCS: 76641; 77061; G0279

== ENCOUNTER 2023-03-05 14:00 | Oncology outpatient (recurring) (ONCR) | payer MEDICARE, MEDICAID, SELFPAY ==
[2023-03-05 14:29] VITALS: BP 158/84; PULSE 64; RESP 18; TEMP 37.1; O2SAT 97
[2023-03-05 14:53] LABS: Basophils % 0.4 %; Eosinophils # 0.1 10^3/uL (0.0-0.8); Eosinophils % 1.6 %; Hemoglobin 12.6 g/dL (11.5-15.3); Lymphocytes # 3.6 10^3/uL (0.8-4.8); Lymphocytes % 51.1 %; Mean Corpuscular HGB Conc 32.3 g/dL (30.0-36.0); Mean Corpuscular Hemoglobin 29.4 pg (28.0-34.0); Mean Corpuscular Volume 91.1 fl (81-99); Mean Platelet Volume 9.4 fL (7.4-10.4); Monocytes # 0.3 10^3/uL (0.2-0.9); Monocytes % 4.9 %; Neutrophils # 2.91 10^3/uL (1.8-7.7); Neutrophils % 41.9 %; Nucleated Red Blood Cells % 0 %; Platelet Count 204 10^3/cmm (130-400); Red Blood Count 4.28 10^6/uL (4.1-5.3)
[2023-03-05 15:12] LABS: Alanine Aminotransferase 20 U/L (0-33); Albumin Level 4.1 g/dL (3.5-5.2); Alkaline Phosphatase 123 U/L (35-105); Anion Gap 13.8 (5-19); Aspartate Amino Transferase 16 U/L (0-32); Blood Urea Nitrogen 15 mg/dL (8-23); Calcium 8.7 mg/dL (8.5-10.5); Carbon Dioxide 26 mmol/L (22-29); Chloride 104 mmol/L (98-107); Globulin 2.8 g/dL (1.3-4.6); Glomerular Filtration Rate 84.5 mL/min (90-130); Glucose 105 mg/dL (65-115); Osmolality Calculated 291 mOsm/kg (285-295); Potassium 3.8 mmol/L (3.5-5.1); Sodium 140 mmol/L (136-145); Total Bilirubin 0.2 mg/dL (0.15-1.2); Total Protein 6.9 g/dL (6.6-8.7)
[2023-03-05 15:43] LABS: 25 Hydroxy Vitamin D 32 ng/mL (30-100)
== END 2023-03-19 23:59 | disposition home or self-care (01) ==
PROVIDERS: PCP Family Medicine; Visit Provider Internal Medicine Medical Oncology
DX: Z08 Encounter for follow-up examination after completed treatment for malignant neoplasm (principal); Z85.3 Personal history of malignant neoplasm of breast; G89.29 Other chronic pain; Z79.891 Long term (current) use of opiate analgesic; E55.9 Vitamin D deficiency, unspecified; Z79.899 Other long term (current) drug therapy; Z92.21 Personal history of antineoplastic chemotherapy; Z92.3 Personal history of irradiation; E04.2 Nontoxic multinodular goiter; E04.1 Nontoxic single thyroid nodule
CPT/HCPCS: 36415; 80053; 82306; 85025; 99214

== ENCOUNTER 2023-09-24 13:46 | Outpatient (CLI) | payer MEDICARE, MEDICAID, SELFPAY ==
--- NOTE | 2023-09-24 13:56 | MM_ITS ---
WS: [id number] BILATERAL 3D TOMOSYNTHESIS DIGITAL DIAGNOSTIC MAMMOGRAPHY WITH CAD CLINICAL INFORMATION: HX BR CA; 6MFU HISTORY: Follow-up LEFT breast lesion COMPARISON: 02/16/2023 TECHNIQUE: Bilateral CC, MLO, and ML views. FINDINGS: Scattered fibroglandular densities bilaterally. Similar-appearing ovoid dense parenchymal tissue of t he surgical cavity upper outer quadrant LEFT breast. This is similar in appearance compared to previo us. Surgical clips upper outer quadrant. Vascular calcifications. Punctate and lucent centered calcif ications. Ultrasound is pending. RIGHT breast is stable compared to previous. ULTRASOUND BREAST LEFT TECHNIQUE: Ultrasound left breast focused area of concern. CLINICAL INFORMATION: HX BR CA; 6MFU FINDINGS: Ultrasound LEFT breast at the lumpectomy site in the area of concern. Ultrasound LEFT breast at the 3 o'clock position 4 cm from the nipple demonstrates a complex collection with internal echogenic debr is. No internal vascularity. This is smaller today measuring approximately 2.0 x 1.5 x 1.9 cm. Previo usly this measured approximately 2.3 x 2.3 x 1.6 cm. This has slowly decreased in size over multiple prior examinations. Recommend continued surveillance until resolution. This is presumed to represent a complex postoperative seroma. IMPRESSION: MM/[place] [id number] BI-RADS: 3-Probably Benign FOLLOW UP: 6 Month Follow-up Recommend 6-month LEFT diagnostic mammography and ultrasound
== END 2023-09-24 13:47 | disposition home or self-care (01) ==
LOC: RAD 13:48
PROVIDERS: PCP Family Medicine; Visit Provider Internal Medicine Medical Oncology
DX: C50.412 Malignant neoplasm of upper-outer quadrant of left female breast (principal)
CPT/HCPCS: 76642; 77062; G0279

== ENCOUNTER 2023-09-24 15:09 | Oncology outpatient (recurring) (ONCR) | payer MEDICARE, MEDICAID, SELFPAY ==
[2023-09-24 16:09] LABS: Basophils # 0.1 10^3/uL (0.0-0.1); Basophils % 0.9 %; Eosinophils # 0.2 10^3/uL (0.0-0.8); Eosinophils % 4.5 %; Hematocrit 37.9 % (36-47); Lymphocytes # 2.2 10^3/uL (0.8-4.8); Mean Corpuscular HGB Conc 31.7 g/dL (30-55); Mean Corpuscular Hemoglobin 29.3 pg (27-33); Mean Corpuscular Volume 92.4 fl (85-98); Mean Platelet Volume 9.4 fL (7.4-10.4); Monocytes # 0.3 10^3/uL (0.2-0.9); Neutrophils # 2.53 10^3/uL (1.8-7.7); Neutrophils % 47.4 %; Nucleated Red Blood Cells % 0 %; Platelet Count 199 10^3/cmm (157-399); White Blood Count 5.34 10^3/uL (3.29-11.43)
[2023-09-24 16:39] LABS: Alanine Aminotransferase 12 U/L (0-33); Albumin Level 4.2 g/dL (3.5-5.2); Alkaline Phosphatase 124 U/L (35-105); Anion Gap 13.6 (5-19); Aspartate Amino Transferase 14 U/L (0-32); Blood Urea Nitrogen 15 mg/dL (8-23); Calcium 8.6 mg/dL (8.5-10.5); Carbon Dioxide 28 mmol/L (22-29); Chloride 100 mmol/L (98-107); Creatinine Clr Calc Pharmacy 95.0471; Free T4 Free Thyroxine 1.11 ng/dL (0.82-1.77); Globulin 2.9 g/dL (1.3-4.6); Glomerular Filtration Rate 84.2 mL/min (90-130); Glucose 89 mg/dL (65-115); Osmolality Calculated 286 mOsm/kg (285-295); Potassium 3.6 mmol/L (3.5-5.1); Sodium 138 mmol/L (136-145); Total Bilirubin 0.2 mg/dL (0.15-1.2); Total Protein 7.1 g/dL (6.6-8.7)
== END 2023-10-18 23:59 | disposition home or self-care (01) ==
PROVIDERS: PCP Family Medicine; Visit Provider Internal Medicine Medical Oncology
DX: Z08 Encounter for follow-up examination after completed treatment for malignant neoplasm (principal); Z85.3 Personal history of malignant neoplasm of breast; M47.819 Spondylosis without myelopathy or radiculopathy, site unspecified; M79.7 Fibromyalgia; G89.29 Other chronic pain; G62.9 Polyneuropathy, unspecified; Z79.891 Long term (current) use of opiate analgesic; E55.9 Vitamin D deficiency, unspecified; Z79.899 Other long term (current) drug therapy; Z92.21 Personal history of antineoplastic chemotherapy; Z92.3 Personal history of irradiation; E04.2 Nontoxic multinodular goiter; C50.412 Malignant neoplasm of upper-outer quadrant of left female breast
CPT/HCPCS: 36415; 76642; 77062; 80053; 84439; 84443; 85025; 99214; G0279

== ENCOUNTER → 2024-04-29 16:07 | Outpatient (BNVA) | payer MEDICARE, MEDICAID, SELFPAY | PROVIDERS: PCP Family Medicine; Visit Provider Nurse Practitioner Family | DX: J06.9 Acute upper respiratory infection, unspecified (principal); R39.9 Unspecified symptoms and signs involving the genitourinary system | CPT/HCPCS: 81000; 87426 ==

== ENCOUNTER → 2024-05-06 15:58 | Outpatient (BNVA) | payer MEDICARE, MEDICAID, SELFPAY | PROVIDERS: PCP Family Medicine; Visit Provider Nurse Practitioner Family | DX: S60.021A Contusion of right index finger without damage to nail, initial encounter (principal); M19.041 Primary osteoarthritis, right hand; M79.641 Pain in right hand | CPT/HCPCS: 73130 ==

== ENCOUNTER → 2024-08-08 08:53 | Outpatient (BNVA) | payer MEDICARE, MEDICAID, SELFPAY | PROVIDERS: PCP Family Medicine; Visit Provider Nurse Practitioner | DX: M47.27 Other spondylosis with radiculopathy, lumbosacral region (principal); M16.11 Unilateral primary osteoarthritis, right hip | CPT/HCPCS: 73502; 99204 ==

== ENCOUNTER 2024-08-15 14:15 | Oncology outpatient (recurring) (ONCR) | payer MEDICARE, MEDICAID, SELFPAY ==
--- NOTE | 2024-08-15 14:30 | MM_ITS ---
WS: [id number] BILATERAL 3D TOMOSYNTHESIS DIGITAL DIAGNOSTIC MAMMOGRAPHY WITH CAD CLINICAL INFORMATION: surveillance HISTORY: 6-month follow-up COMPARISON: 09/24/2023 TECHNIQUE: Bilateral CC, MLO, and ML views. FINDINGS: Scattered fibroglandular densities bilaterally. Similar-appearing dense parenchymal tissue upper oute r quadrant LEFT breast at the surgical cavity posteriorly. This is similar to previous. Ultrasound is pending. Surgical clips in the lumpectomy cavity. Vascular calcifications. Punctate and lucent centered calcifications. RIGHT breast is stable compared to previous. ULTRASOUND BREAST LEFT TECHNIQUE: Ultrasound left breast focused area of concern. CLINICAL INFORMATION: surveillance FINDINGS: Ultrasound LEFT breast in the area of concern at the lumpectomy site at the 3 o'clock position 4 cm f rom the nipple. Again seen is a complex collection with internal echogenic debris. No internal vascul arity. Previously this measured 2.0 x 1.5 x 1.9 cm. Today this measures approximately 1.6 x 1.2 x 1.8 cm This most likely represents a complex postoperative seroma/resolving hematoma. This is progressively smaller since 2021. Recommend return to annual diagnostic mammography. MM/MM diag BI tomosynthesis [id number] IMPRESSION: DENSITY: There are scattered areas of fibroglandular density. BI-RADS: 2 - Benign. FOLLOW UP: 1 Year Follow-up Recommend return to annual diagnostic mammography.
--- NOTE | 2024-08-15 15:00 | US_ITS ---
WS: [id number] BILATERAL 3D TOMOSYNTHESIS DIGITAL DIAGNOSTIC MAMMOGRAPHY WITH CAD CLINICAL INFORMATION: surveillance HISTORY: 6-month follow-up COMPARISON: 09/24/2023 TECHNIQUE: Bilateral CC, MLO, and ML views. FINDINGS: Scattered fibroglandular densities bilaterally. Similar-appearing dense parenchymal tissue upper oute r quadrant LEFT breast at the surgical cavity posteriorly. This is similar to previous. Ultrasound is pending. Surgical clips in the lumpectomy cavity. Vascular calcifications. Punctate and lucent centered calcifications. RIGHT breast is stable compared to previous. ULTRASOUND BREAST LEFT TECHNIQUE: Ultrasound left breast focused area of concern. CLINICAL INFORMATION: surveillance FINDINGS: Ultrasound LEFT breast in the area of concern at the lumpectomy site at the 3 o'clock position 4 cm f rom the nipple. Again seen is a complex collection with internal echogenic debris. No internal vascul arity. Previously this measured 2.0 x 1.5 x 1.9 cm. Today this measures approximately 1.6 x 1.2 x 1.8 cm This most likely represents a complex postoperative seroma/resolving hematoma. This is progressively smaller since 2021. Recommend return to annual diagnostic mammography. US/[place] [id number] IMPRESSION: DENSITY: There are scattered areas of fibroglandular density. BI-RADS: 2 - Benign. FOLLOW UP: 1 Year Follow-up Recommend return to annual diagnostic mammography.
== END 2024-08-19 23:59 | disposition home or self-care (01) ==
LOC: ONCMED 14:17 → RAD 14:37 → ONCMED 08-18 09:05
PROVIDERS: PCP Family Medicine; Visit Provider Internal Medicine Medical Oncology
DX: C50.412 Malignant neoplasm of upper-outer quadrant of left female breast (principal); R92.323 Mammographic fibroglandular density, bilateral breasts
CPT/HCPCS: 76641; 77061; 77062; G0279

== ENCOUNTER 2025-03-06 13:35 | Outpatient (CLI) | payer MEDICARE, MEDICAID, SELFPAY ==
--- NOTE | 2025-03-06 13:44 | MM_ITS ---
WS: [id number] BILATERAL 3D TOMOSYNTHESIS DIGITAL DIAGNOSTIC MAMMOGRAPHY WITH CAD CLINICAL INFORMATION: HISTORY OF BREAST CANCER HISTORY: LEFT breast cancer with radiation and chemo COMPARISON: 2024 TECHNIQUE: Bilateral CC, MLO, and ML views. FINDINGS: Scattered fibroglandular densities bilaterally. Vascular calcification. Incidental punctate and lucent centered calcifications. Lumpectomy changes LEFT breast with parenchymal scarring and surgical clips. Volume loss LEFT breast with treatment related changes. No suspicious focal mass, asymmetry, calcifications, or architectural distortion. No evidence of malignancy. MM/MM diag BI tomosynthesis [id number] IMPRESSION: DENSITY: There are scattered areas of fibroglandular density. BI-RADS: 2 - Benign. FOLLOW UP: 1 Year Follow-up Recommend return to annual diagnostic mammography.
--- NOTE | 2025-03-06 14:18 | XRR_ITS ---
PROCEDURE INFORMATION: Exam: XR Right Hip Exam date and time: 03/06/2025 2:50 PM Age: 64 years old Clinical indication: Hip pain; Right hip; Chronic RT hip and low back pain; Additional info: RT hip pain TECHNIQUE: Imaging protocol: Radiologic exam of the right hip. Views: 1 view hip with pelvis when performed. COMPARISON: CR XR hip RT 2-3V wo/w pel* [id number] 08/08/2024 9:12 AM FINDINGS: Bones/joints: No fracture or dislocation. There are unchanged severe degenerative changes of the right hip, manifested by joint space narrowing with [id number] apposition, subchondral cysts, subchondral sclerosis, deformity of the femoral head and periarticular osteophytes. Soft tissues: Normal. XR/XR hip RT 2-3V wo/w pel* [id number] IMPRESSION: 1. No fracture or dislocation. 2. Unchanged severe degenerative changes of the right hip..
--- NOTE | 2025-03-06 14:18 | XR_ITS ---
WS: [id number] Lumbar spine, 5 views including left oblique, 03/06/2025 Clinical Data: lumbar pain Comparison: None. Findings: No compression fractures or subluxation is seen. There is degenerative disc narrowing of all levels from the lower thoracic through all the lumbar levels along with osteoarthritis. The transverse processes and SI joints are normal. Facet joint arthritis is present from L3-L4 through L5-S1. The left oblique shows no spondylolysis. There is severe osteoarthritis of the right hip. XR/XR lumbar spine min 4V [id number] Impression: 1. Severe osteoarthritis and degenerative disc narrowing at all lumbar levels. 2. Severe osteoarthritis of the right hip.
== END 2025-03-06 13:36 | disposition home or self-care (01) ==
LOC: RAD 13:37
PROVIDERS: PCP Family Medicine; Visit Provider Nurse Practitioner Family
DX: M16.11 Unilateral primary osteoarthritis, right hip (principal); M51.360 Other intervertebral disc degeneration, lumbar region with discogenic back pain only; R92.323 Mammographic fibroglandular density, bilateral breasts; R92.1 Mammographic calcification found on diagnostic imaging of breast; Z98.890 Other specified postprocedural states; N64.2 Atrophy of breast
CPT/HCPCS: 72110; 73502; 77062; G0279